=== PATIENT | male | born 1940 | race Caucasian/White ===

== ENCOUNTER → 2016-05-22 | Outpatient (CLI) | payer OTHER ==
[~2016-05-22] VITALS: Ht 190.5 cm; Wt 104.3 kg
[~2016-05-22] MED LIST: ASPIR 8181 M1 PO; IBUPROFEN 200200 M1 PO; LOPRESSOR50 PO; METOPROLOL SUCC50 MG PO; NORCO 10-325 T1 EACH PO; ROSUVASTATIN CA20 MG PO; ZANTAC 150MG T150 MG PO
--- NOTE | ~2016-05-22 | HPC ---
[facility] [address] [address] PAIN MANAGEMENT CONSULTATION Name: JESUSSHANIA Margarita Room #: REG JACOBOAshlyn Thorpe#: [id number] Admission: 05/22/16 Attend Phys: Shania Topete MD Discharge: Date of : 38 Report #: [id number] THIS REPORT FOR: //name// CC: Kate Topete DATE OF SERVICE: 05/22/2016 CHIEF COMPLAINT: Low back pain with spinal stenosis. I am seeing the patient today as a self-referral for low back pain. He has had ongoing back pain for some time, but in the last year, it has gotten much worse. He describes it as mostly back pain but with a sciatic component that radiates into the right leg. He has some left leg, but this is minimal. It follows an S1 distribution. It is worsened by standing and walking, improved with rest. He describes it as continuous, ache and his pain scores vary between 5 and 6 on a given day on average and his worst pain has been a 9-10. Pain drawing shows an X located across the lumbosacral spine without radiating drawings. MEDICATIONS: Aspirin, Toprol, Crestor, ibuprofen, hydrocodone, and Zantac. ALLERGIES: None. PAST MEDICAL HISTORY: He had a hip replacement bilaterally 15 years ago. He has had a right herniorrhaphy 14 years ago, tonsillectomy and adenoidectomy 70 years ago. 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 He denies use of tobacco. Drinks alcohol in the social setting 3-4 times a day the week. Pain impact scores are highest for walking ability 7/10, normal work 7/10 and enjoyment of life 6/10. REVIEW OF SYSTEMS: Positive for nocturia, change of force with urination, but he denies cardiovascular, respiratory, gastrointestinal or musculoskeletal problems. He denies any psychiatric issues, no problems with sleep. PHYSICAL EXAMINATION: Pleasant physician, blood pressure 194/117, pulse is 77, respirations 20, BMI is 28.7. He is able to move from sitting to standing position, walks with marked antalgic features. Range of motion of the lumbar spine is limited in all planes, particularly in extension which reproduces back pain. Straight leg raising is positive for radiculopathy on the right. Sensation is intact. There is no focal weakness. Deep tendon reflexes are diminished. [facility] [address] [place] [address] PAIN MANAGEMENT CONSULTATION Name: SHANIA LEE Room #: REG CLI [facility]#: [id number] Admission: 05/22/16 Attend Phys: Shania Topete MD Discharge: Date of : 39 Report #: [id number] IMPRESSION: Low back pain with spondylosis, history of spinal stenosis and radiculopathy. RECOMMENDATION: 1. Lumbar spine series would include flexion and extension views. 2. Consider epidural steroid injections in the future. He was discharged for his x-rays and we will see him back in the clinic for possible epidural steroid injection therapy. The possibility of medial branch nerve blocks and radiofrequency was also discussed. I did provide him with medication, hydrocodone 5/325. We will establish an opioid agreement for him going forward it he wants us to provide medication for him under terms of our usual opioid agreements. CDC guidelines have been reviewed with us as well with the patient. By: [id number] Shania Topete MD /nt
[2016-05-22 12:29] VITALS: BP 200/117
[2016-05-22 12:38] VITALS: BP 194/117
== END ==
LOC: PAIN 07:00
DX: M48.07 Spinal stenosis, lumbosacral region (principal); I10 Essential (primary) hypertension; Z96.643 Presence of artificial hip joint, bilateral; Z87.891 Personal history of nicotine dependence

== ENCOUNTER → 2016-05-29 | Outpatient (CLI) | payer OTHER ==
[~2016-05-29] VITALS: Ht 190.5 cm; Wt 99.8 kg
[~2016-05-29] MED LIST changes: +HYDROCODON-ACE1 EAC5 PO
--- NOTE | ~2016-05-29 | HPC ---
[facility] [address] [place] [address] PAIN MANAGEMENT CONSULTATION Name: JESUSSHANIA Margarita Room #: REG JACOBOAshlyn Ospina.#: [id number] Admission: 05/29/16 Attend Phys: Shania Topete MD Discharge: Date of : 39 Report #: [id number] THIS REPORT FOR: //name// CC: Kate Topete DATE OF SERVICE: 05/29/2016 Followup visit for severe low back pain with spinal stenosis. The patient returns to pain clinic today for discussion regarding his x-rays. Plain film x-rays show as expected degenerative changes, but they are a bit more severe than I think either he or I expected. He has severe multilevel spondylosis with degenerative disk disease with skeletal hyperostosis. All the vertebral body heights are grossly maintained. Neural foraminal narrowing is noted throughout due to severe osteoarthritis. 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 There is no evidence of fracture or spondylolisthesis. We spent 10-15 minutes today discussing options for treatment including facet injections with radiofrequency ablation. This would be a daunting task with multiple levels required to be treated. To determine the appropriate levels, radiofrequency ablation is routinely successful and would require bilateral treatments at several levels. He does not seem much interested in that. Hydrocodone 10/325 taken along with ibuprofen conservatively has been helpful. He would like to continue to use medication to manage his chronic intractable pain. We reviewed the terms of an opioid agreement. We reviewed the CDC guidelines in some detail. I am happy to provide medications for him under our control program. He signed an opioid agreement today and he was given a prescription for hydrocodone 10/325, #100 tablets. Additional prescriptions were provided for release in 4 and 8 weeks and I will see him back in the pain clinic at that time. Possibility of urine drug analysis was discussed with him, as part of the CDC guidelines. We also reviewed the opioid risk tool and he is at low risk for addiction. By: [id number] Shania Topete MD /nt
[2016-05-29 10:24] VITALS: BP 150/88
== END | disposition home or self-care (01) ==
LOC: PAIN 07:04
DX: M48.00 Spinal stenosis, site unspecified (principal); M47.9 Spondylosis, unspecified; I10 Essential (primary) hypertension; M16.0 Bilateral primary osteoarthritis of hip

== ENCOUNTER → 2016-09-29 | Outpatient (CLI) | payer OTHER ==
--- NOTE | ~2016-09-29 | HPC ---
[facility] [address] [address] PAIN MANAGEMENT CONSULTATION Name: JESUSSHANIA Margarita Room #: REG CLOTILDE Ila#: [id number] Admission: 09/29/16 Attend Phys: Shania Topete MD Discharge: Date of : 39 Report #: [id number] THIS REPORT FOR: //name// CC: Kate Topete DATE OF SERVICE: 09/29/2016 Followup visit for severe spinal stenosis. The patient returns to pain clinic today reporting that he receives reasonable pain relief with the hydrocodone that we initiated. He has been taking no more than 3-4 tablets per day, averaging 100 tablets per month. He has had no significant side effects. He safeguards his medication. He is receiving opioids only from our clinic and no other physicians. 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 We talked about safeguarding medications in some detail today. PHYSICAL EXAMINATION: He is in a wheelchair. He is morbidly obese. BMI is over 35. Blood pressure is 167/97, heart rate 75. He has pain across his low back and tenderness. He has weakness noted bilaterally in lower extremities with sensation of numbness. Straight leg raising is positive. IMPRESSION: 1. Chronic low back pain with spinal stenosis. 2. Management of high risk medication. PLAN: I renewed his medications under terms of our written opioid agreement. We will see him back in the pain clinic in roughly 3 months. Prescriptions were provided for him under terms of the agreement with release of prescription in 4 weeks. By: [id number] Shania Topete MD /nt
[2016-09-29 10:03] VITALS: BP 167/97
== END | disposition home or self-care (01) ==
LOC: PAIN 07:11
DX: Z76.0 Encounter for issue of repeat prescription (principal); G89.29 Other chronic pain; M48.06 Spinal stenosis, lumbar region; M54.5 Low back pain; Z79.891 Long term (current) use of opiate analgesic; Z79.82 Long term (current) use of aspirin; Z79.899 Other long term (current) drug therapy

== ENCOUNTER → 2017-01-27 | Outpatient (CLI) | payer OTHER ==
[~2017-01-27] VITALS: Ht 190.5 cm; Wt 104.3 kg
--- NOTE | ~2017-01-27 | HPC ---
[facility] [place] [address] PAIN MANAGEMENT CONSULTATION Name: SHANIA LEE Room #: REG CLOTILDE Thorpe#: [id number] Admission: 01/27/17 Attend Phys: William Fraser DO Discharge: Date of : 39 Report #: [id number] THIS REPORT FOR: //name// CC: Kate Fraser DATE OF SERVICE: 01/27/2017 CHIEF COMPLAINT: Low back pain, bilateral lower extremity pain and paresthesias. HISTORY OF PRESENT ILLNESS: As you know, the patient is a 76-year-old male, followed by Dr. Shania Topete for medication management secondary to severe spinal stenosis and its subsequent lumbar radicular symptoms. He returns today in followup visit for medication management. Due to scheduling conflicts, the patient was placed on my schedule today to provide medications for continued analgesia. The patient indicates he takes hydrocodone 10/325, approximately 3-4 a day. He receives 100 tablets every month and 2-month increments. He returns to receive these refills as his typical pain physician, Dr. Shania Topete, is unavailable. The patient indicates today pain is a level 4/10. States aching, throbbing, radiating weakness and numbness. He indicates pain is exacerbated with walking, standing; improves with relaxation and medication. ALLERGIES: No known drug allergies. CURRENT MEDICATIONS: Hydrocodone 10/325 one tab every 8 hours p.r.n. for pain, aspirin 81 mg per day, ibuprofen 200 mg 4 times a day, ranitidine 150 mg per day, metoprolol 50 mg per day, lovastatin 20 mg per day. SOCIAL HISTORY: Unchanged. IMAGING: No imaging available. PHYSICAL EXAMINATION: VITAL SIGNS: Blood pressure 146/87, pulse is 72, respiratory rate 20 and unlabored. The patient is 97% on room air, height 6 feet 3 inches tall, weight 230 pounds, BMI calculated 28.7. GENERAL: Well-developed, well-nourished, well-hydrated, 76-year-old male. He appears stated age, placing pain score today 4/10. HEENT: Normocephalic, atraumatic. Pupils equal, round, reactive to light. EXTREMITIES: Showed no clubbing, no cyanosis. MUSCULOSKELETAL: There is weakness noted in bilateral lower extremities. Seated straight leg raising positive. IMPRESSION: 1. Chronic lumbar radiculopathy. [address] [address] PAIN MANAGEMENT CONSULTATION Name: JESUSSHANIA Margarita Room #: REG CLOTILDE Thorpe#: [id number] Admission: 01/27/17 Attend Phys: William Fraser DO Discharge: Date of : 39 Report #: [id number] 2. Severe spinal stenosis of lumbar spine. 3. Displacement of lumbar intervertebral disk with radiculopathy. 4. Lumbosacral spondylosis with radiculopathy. 5. Management of high risk medications. 6. Chronic intractable pain. PLAN: 1. The patient returns today in followup visit, requesting refill on medications. He typically receives hydrocodone 10/, 100 per month from his current pain physician, Dr. Shania Topete. He has requested refills of medication to be provided today due to scheduling conflicts. The patient was placed on my schedule for continuation of this medication. At this time, the patient indicates he is utilizing the medication appropriately. He is not calling for early refills and he has no concerning entries in the [employer] system. He has requested the refill to be provided today. 2. The patient was provided prescription of hydrocodone 10/325, one tab every 5 hours p.r.n. for pain., #100, releases of today, 4 weeks from today, 2 months' worth of medication. 3. The patient returns to see Dr. Shania Topete in 2 months for medication management. By: [id number] William Fraser DO /nt
[2017-01-27 10:53] VITALS: BP 146/87
== END ==
LOC: PAIN 01-23 07:28
DX: M47.27 Other spondylosis with radiculopathy, lumbosacral region (principal); M51.16 Intervertebral disc disorders with radiculopathy, lumbar region; M48.061 Spinal stenosis, lumbar region without neurogenic claudication; G89.4 Chronic pain syndrome; M79.605 Pain in left leg; M79.604 Pain in right leg; Z79.899 Other long term (current) drug therapy

== ENCOUNTER → 2017-08-06 | Outpatient (CLI) | payer OTHER ==
[~2017-08-06] VITALS: Ht 190.5 cm; Wt 102.1 kg
--- NOTE | ~2017-08-06 | HPC ---
[facility] [place] [address] PAIN MANAGEMENT CONSULTATION Name: JESUSSHANIA Margarita Room #: REG JACOBOAshlyn Ospina.#: [id number] Admission: 08/06/17 Attend Phys: Shania Topete MD Discharge: Date of : 39 Report #: [id number] THIS REPORT FOR: //name// CC: Kate Topete DATE OF SERVICE: 08/06/2017 Followup visit for severe low back pain with radiculopathy. The patient presents back to the pain clinic today for renewal of his pain medication. He is on modest doses of hydrocodone, which provide relief. I provide him with 100 tablets of hydrocodone 10/325 twice over roughly a 6-month period. This correlates to about 1-2 tablets or about 10 MME per day. He is grateful for the relief, does not complain of side effects, safeguards all his medication. Today, his PQRS shows that he has severe osteoarthritis of the spine and of the hips. Also, he has a history of rheumatoid arthritis. His BMI is 28.1. He is confined to a wheelchair and is a fall risk. He has weakness bilaterally in lower extremities. His blood pressure 147/78, heart rate 67. He has pain across the lumbosacral segment. Deep tendon reflexes are absent bilaterally in lower extremities. IMPRESSION: Chronic intractable back pain with radiculopathy. PLAN: New imaging is planned. This was ordered by his primary care physician. For pain, I have renewed his hydrocodone 10/325 mg at 100 tablets to be taken 3-4 times daily p.r.n. for severe pain. He was given a second prescription for release in 4 weeks. I plan to see him back in the pain clinic on an as needed basis. By: [id number] Shania Topete MD /nt
[2017-08-06 10:05] VITALS: BP 147/78
== END ==
LOC: PAIN 06:56
DX: M54.16 Radiculopathy, lumbar region (principal)

== ENCOUNTER → 2017-12-21 | Outpatient (CLI) | payer OTHER ==
[~2017-12-21] VITALS: Ht 190.5 cm; Wt 122.8 kg
[~2017-12-21] MED LIST changes: +IBUPROFEN 800800 M1 PO; +LISINOPRIL10 MG PO; +LOPRESSOR100 M1 PO
--- NOTE | ~2017-12-21 | HPC ---
[facility] [place] [address] PAIN MANAGEMENT CONSULTATION Name: SHANIA LEE Room #: REG CLOTILDE Thorpe#: [id number] Admission: 12/21/17 Attend Phys: Angelic Aguillon Discharge: Date of : 39 Report #: [id number] THIS REPORT FOR: //name// CC: Angelic Robison DATE OF SERVICE: 12/21/2017 CHIEF COMPLAINT: The patient seen today for his chronic low back pain with radiculopathy. HISTORY OF PRESENT ILLNESS: The patient returns to the pain clinic today for renewal of his pain medications. He tells me that he did have surgery on 11/10/2017, laminectomy from Dr. Campos. States that he is doing much better since then. He said he had pain initially right after the surgery that was pretty intense, but has decreased significantly. He is doing physical therapy 2 times a week for at least 6 weeks and doing his exercises at home. He is using a walker. Today, he tells me his greatest concern is that he has weakness. He was surprised at how much strength he has lost, but he is slowly gaining it back. Pain score is 3/10, worse with walking, better with his medication and lying down. He tells me he takes ibuprofen 800 mg 3 times a day and hydrocodone 2 a day. He is trying to decrease his hydrocodone and wean himself off because he complains of significant constipation. He has been using MiraLax and Colace on a daily basis that seems to keep his constipation under control, but he tells me his plan is to decrease his hydrocodone to 1 a day and then off. ALLERGIES: He has no known drug allergies. LIST OF MEDICATIONS: Ibuprofen 800 mg 3 times a day, lisinopril 10 mg daily, Lopressor 100 mg twice a day, Emily 10/325 two a day, aspirin 81 mg daily, Zantac 150 at bedtime and Crestor 20 mg daily. PQRS: 1. He has history of osteoarthritis in his spine and his hips. He denies rheumatoid arthritis. 2. Height is 6 feet 3 inches. His weight is 270 with a BMI of 33.8. 3. Vital signs: Blood pressure 158/86, pulse is 80, respirations 20, oxygen sat is 97%. Pain score is 3/10 today. 4. Fall risk: He denies dizziness. Does not need help walking or standing and has not fallen in the last 3 months. 5. The patient is not on a blood thinner. 6. He has a history of hypertension. 7. Opioid therapy is greater than 6 weeks, he has opioid signed contract on the chart. 8. Risk assessment is low. 9. Functional assessment is 60/70. [address] [address] PAIN MANAGEMENT CONSULTATION Name: SHANIA LEE Room #: REG CLAshlyn Thorpe#: [id number] Admission: 12/21/17 Attend Phys: Angelic Aguillon Discharge: Date of : 39 Report #: [id number] 10. Denies recreational drug use. Does not smoke and occasionally uses some alcohol. We checked the [facility] drug monitoring system and patient has filled one hydrocodone from Dr. Edy Fonseca, otherwise, they have been from Dr. Shania Topete. The patient is hopeful to decrease his medicines and wean off of them. The patient does keep his medicines safeguarded. PHYSICAL EXAMINATION: GENERAL: This is a well-developed, well-nourished, well-hydrated 77-year-old male who appears his stated age. HEENT: Normocephalic, atraumatic. Pupils equal, round and reactive to light. EXTREMITIES: No clubbing, no cyanosis. MUSCULOSKELETAL: There is weakness noted in his bilateral extremities, positive straight raising. The patient tells me he is gaining strength in his legs, though they are still diminished in strength. IMPRESSION: 1. Chronic intractable back pain with radiculopathy. 2. Post-laminectomy. 3. Severe spinal stenosis of his lumbar spine. 4. Lumbosacral spondylosis with radiculopathy. 5. Management of high risk medication. 6. Chronic intractable pain. We reviewed the fact that opiate medications are being used to provide analgesia adequate to support activities of daily living, not attempting to achieve a specific pain score on the 0-10 Visual Analog Scale. The current opiate medications are providing sufficient analgesia to allow the patient to participate in activities of daily living. The patient is not exhibiting any aberrant behavior suggestive of drug diversion. The patient is not having any adverse reactions to medications. The patient is not suffering from daytime somnolence or mental acuity changes. The patient is managing opiate-induced constipation with appropriate [id number] agents and dietary considerations. The patient was counseled on concern for caution with operating a motor vehicle while using opiate medications. A physical exam was performed and the patient's functional status was evaluated. All patients with back pain were advised against the bed rest greater than 4 days and were advised to return to normal activities. Pain score assessment was noted and the treatment plan was reviewed with the patient. All current medications, both prescribed and OTC were reviewed and reconciled on the electronic medical record. Tobacco screening was accomplished and smoking cessation was advised when indicated. BMI was noted and diet/exercise modification was recommended for all patients following outside normal parameters. [address] [place] [address] PAIN MANAGEMENT CONSULTATION Name: SHANIA LEE Room #: REG [facility].#: [id number] Admission: 12/21/17 Attend Phys: Angelic Aguillon Discharge: Date of : 39 Report #: [id number] I reviewed with the patient today their responsibilities to safeguard prescription medications, reviewed their responsibility to utilize medications only as prescribed by the physician. They are to seek and receive pain medications only from 1 physician group ( [facility]). They are to use 1 pharmacy and keep the clinic informed if they change pharmacies. Their responsibilities include making followup visits in a timely fashion and to avoid abrupt discontinuation of medication usage. Their responsibilities further include bringing their medications (bottles from the pharmacy with residual pills) to the visit for possible confirmation of pill counts and the patient understands it is their responsibility to submit to random drug screens to ensure both that the medications prescribed are present, and that no other controlled substances are present. All prescriptions provided today were generated electronically. PLAN: 1. The patient returns to the pain clinic today for refill of his medication. He specifically would like an ibuprofen script 800 mg tablets, he tells me he takes them 3 times a day. He also would like hydrocodone 10/325, he is slowly weaning off these since his surgery. 2. The patient was given script for ibuprofen 800, #90 with 2 additional refills. Script also for hydrocodone 10/325 one p.o. q. 6 hours, #120, no additional refills. 3. The patient will continue his physical therapy for his laminectomy surgery and continue to gain strength. 4. The patient will see in followup if needed. If the patient does wean off his hydrocodone, there is no need to follow up in the pain clinic, he can get his ibuprofen from his primary care doctor. The patient is seen in collaboration today with Dr. Shania Topete. <ELECTRONICALLY SIGNED> By: Angelic Aguillon 12/22/17 0715 [id number] Angelic Aguillon /nt
[2017-12-21 14:43] VITALS: BP 151/86
== END ==
LOC: PAIN 11-25 07:49
DX: M47.27 Other spondylosis with radiculopathy, lumbosacral region (principal); M96.1 Postlaminectomy syndrome, not elsewhere classified; G89.4 Chronic pain syndrome; M48.061 Spinal stenosis, lumbar region without neurogenic claudication; Z79.899 Other long term (current) drug therapy

== ENCOUNTER → 2018-03-04 | Outpatient (CLI) | payer OTHER ==
[~2018-03-04] VITALS: Ht 190.5 cm; Wt 123.3 kg
[2018-03-04 10:55] VITALS: BP 153/84
--- NOTE | 2018-03-04 11:06 | NUR ---
Pain Clinic Assessment: 1. History of Osteoarthritis: SPINE HIPS History of Rheumatoid Arthritis: 2. Height: 6 ft. 3 in. 190.5 cm. Weight: 271.8 lb. oz. 123.288 kg. Patient's BMI: 34.0 3. Vital Signs: BP: 153/84 Pulse: 74 Resp: 22 Temp: 02 Sat: 98 ECG Mon: 4. Pain Intensity: 4 5. Fall Risk: Dizziness: N Needs help standing or walking: Y Fallen in the last 3 months: N Fall risk comments: 6. Patient on Blood Thinner: None 7. History of Hypertension: Y 8. Opioid Therapy greater than 6 weeks: Y Opiate Contract Signed: 05/29/16 9. Risk Assessment Tool Provided: *LOW RISK-3 10. Functional Assessment Tool: 11. Recreational Drug Use: Never Drug Type: Tobacco Use: Never Smoker Tobacco Type: Amount or Packs/day: How Many Years: Alcohol Use: Yes Frequency: Quant:
--- NOTE | 2018-03-04 16:07 | HPC ---
[facility] [address] [place] [address] PAIN MANAGEMENT CONSULTATION Name: JESUSSHANIA Avila Room #: REG CLOTILDE Thorpe#: [id number] Admission: 03/04/18 Attend Phys: Angelic Aguillon Discharge: Date of : 38 Report #: [id number] THIS REPORT FOR: //name// CC: Angelic Robison DATE OF SERVICE: 03/04/2018 CHIEF COMPLAINT: Chronic low back pain with radiculopathy, status post laminectomy. HISTORY OF PRESENT ILLNESS: The patient returns to the pain clinic today for renewal of his pain medications. He tells me that he has been continuing going to therapy several times a week for his stability since he has had his laminectomy in October. The patient tells me that he feels like he is doing quite well except that it has taken him a long time to gain back some of his strength and endurance. He does use a walker today because he tells me he still has some balance issues, but at home, he does use a cane. The patient tells me that he takes an average of two of his hydrocodone a day and this is a decrease in his previous amount. He does complain of some constipation and has started MiraLax daily. He would like a refill of his hydrocodone today. CURRENT LIST OF ALLERGIES: No known drug allergies. CURRENT LIST OF MEDICATIONS: Hydrocodone 10/325 every 6 hours as needed, ibuprofen 800 mg every 8 hours as needed, Zestril 10 mg daily, Lopressor 100 mg twice a day, aspirin 81 mg daily, Zantac 150 mg at bedtime and Crestor 20 mg daily. PQRS: 1. 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 Denies rheumatoid arthritis. 2. Height is 6 feet 3 inches, weight is 271. BMI is 34. 3. Vital Signs: BP 153/84, pulse is 74, respirations 22, oxygen sat is 98. 4. Pain score is 4/10. 5. Fall risk. He denies dizziness, does not need help walking or standing. Has not fallen in the last 3 months. 6. The patient is not on any blood thinners. 7. Has history of hypertension. 8. Opioid therapy is greater than 6 weeks; therefore, an opioid signed contract is on the chart. 9. His risk assessment tool is low and his functional assessment of 16/70. 10. Recreational drug use: The patient denies. He is not a smoker and occasionally drinks alcohol. We did check the prescription monitoring system. The patient is filling appropriately from Dr. Shania Topete for his medications. His last fill was in December, which he tells me he has been [address] [place] [address] PAIN MANAGEMENT CONSULTATION Name: SHANIA LEE Room #: REG CLOTILDE Thorpe#: [id number] Admission: 03/04/18 Attend Phys: Angelic Aguillon Discharge: Date of : 39 Report #: [id number] taking about 2 a day that averages out for this appointment today. The patient tells me he does safeguard his medications. PHYSICAL EXAMINATION: GENERAL: This is a well-developed, well-nourished, well-hydrated 77-year-old gentleman who appears his stated age. He is alert and orientated. His affect is appropriate. HEENT: Normocephalic, atraumatic. Pupils round, reactive to light. Slight difficulty with hearing. EXTREMITIES: No clubbing, no cyanosis. MUSCULOSKELETAL: Weakness noted in bilateral extremities. Muscle strength is judged to be 4/5 in all major muscle groups in his lower extremities. The patient uses a walker. He says he is having difficulty with his balance. He walks with an antalgic gait. ASSESSMENT: 1. Chronic intractable pain with radiculopathy. 2. Post-laminectomy. 3. Severe spinal stenosis of his lumbar spine. 4. Lumbosacral spondylosis with radiculopathy. 5. Management of high risk medication. 6. Chronic intractable pain. We reviewed the fact that opiate medications are being used to provide analgesia adequate to support activities of daily living, not attempting to achieve a specific pain score on the 0-10 Visual Analog Scale. The current opiate medications are providing sufficient analgesia to allow the patient to participate in activities of daily living. The patient is not exhibiting any aberrant behavior suggestive of drug diversion. The patient is not having any adverse reactions to medications. The patient is not suffering from daytime somnolence or mental acuity changes. The patient is managing opiate-induced constipation with appropriate pajj-jwj-cyhznlk agents and dietary considerations. The patient was counseled on concern for caution with operating a motor vehicle while using opiate medications. A physical exam was performed and the patient's functional status was evaluated. All patients with back pain were advised against the bed rest greater than 4 days and were advised to return to normal activities. Pain score assessment was noted and the treatment plan was reviewed with the patient. All current medications, both prescribed and OTC were reviewed and reconciled on the electronic medical record. Tobacco screening was accomplished and smoking cessation was advised when indicated. BMI was noted and diet/exercise modification was recommended for all patients following outside normal parameters. I reviewed with the patient today their [facility] [address] [address] PAIN MANAGEMENT CONSULTATION Name: SHANIA LEE Room #: REG CLOTILDE Thorpe#: [id number] Admission: 03/04/18 Attend Phys: Angelic Aguillon Discharge: Date of : 39 Report #: [id number] prescription medications, reviewed their responsibility to utilize medications only as prescribed by the physician. They are to seek and receive pain medications only from 1 physician group ( [facility]). They are to use 1 pharmacy and keep the clinic informed if they change pharmacies. Their responsibilities include making followup visits in a timely fashion and to avoid abrupt discontinuation of medication usage. Their responsibilities further include bringing their medications (bottles from the pharmacy with residual pills) to the visit for possible confirmation of pill counts and the patient understands it is their responsibility to submit to random drug screens to ensure both that the medications prescribed are present, and that no other controlled substances are present. All prescriptions provided today were generated electronically. PLAN: 1. We discussed treatment options with the patient today. He tells me he takes an average of about 2-3 of his hydrocodone 10/325 on a daily basis. Scripts given today for [place] 10/325 q.6 hours, #120 for today and 4-week. This may last the patient possibly even up to 4 months depending on his usage. 2. Dr. Topete to come in and see the patient. He did briefly talk about testosterone levels and as men age, our testosterone levels decrease and as also taking opioids, testosterone levels decrease, this can make a patient feel tired. The patient was instructed to talk to Dr. Robison about checking his testosterone level and may be supplementing them. The patient was encouraged by this, stating that he does feel quite tired all the time. 3. The patient tells me he does not need any ibuprofen refilled today. He has plenty of that at home because he uses it sparingly. 4. The patient will be seen when he is running low on his medication. Verbalizes understanding to call in a timely fashion for his appointment. 5. The patient is seen in collaboration today with Dr. Shania Topete. <ELECTRONICALLY SIGNED> By: Angelic Aguillon 03/04/18 1607 [id number] Angelic Aguillon /nt
== END ==
LOC: PAIN 06:57
DX: M47.27 Other spondylosis with radiculopathy, lumbosacral region (principal); M48.061 Spinal stenosis, lumbar region without neurogenic claudication; G89.4 Chronic pain syndrome; M96.1 Postlaminectomy syndrome, not elsewhere classified; Z79.899 Other long term (current) drug therapy

== ENCOUNTER → 2018-07-08 | Outpatient (CLI) | payer OTHER ==
[~2018-07-08] VITALS: Ht 190.5 cm; Wt 122.9 kg
[2018-07-08 10:57] VITALS: BP 142/79
--- NOTE | 2018-07-08 11:06 | NUR ---
Pain Clinic Assessment: 1. History of Osteoarthritis: SPINE HIPS History of Rheumatoid Arthritis: 2. Height: 6 ft. 3 in. 190.5 cm. Weight: 271.0 lb. oz. 122.925 kg. Patient's BMI: 33.9 3. Vital Signs: BP: 142/79 Pulse: 67 Resp: 20 Temp: 02 Sat: 98 ECG Mon: 4. Pain Intensity: 4 5. Fall Risk: Dizziness: N Needs help standing or walking: Y Fallen in the last 3 months: Y Fall risk comments: 6. Patient on Blood Thinner: None 7. History of Hypertension: Y 8. Opioid Therapy greater than 6 weeks: Y Opiate Contract Signed: 05/29/16 9. Risk Assessment Tool Provided: *LOW RISK-3 10. Functional Assessment Tool: 11. Recreational Drug Use: Never Drug Type: Tobacco Use: Never Smoker Tobacco Type: Amount or Packs/day: How Many Years: Alcohol Use: Yes Frequency: Daily Quant: WHISKEY 2 A DAY
--- NOTE | 2018-07-13 07:43 | HPC ---
[facility] [address] [place] [address] PAIN MANAGEMENT CONSULTATION Name: JESUSSHANIA Margarita Room #: REG Ashlyn Thorpe#: [id number] Admission: 07/08/18 ������������������ Attend Phys: Angelic Aguillon Discharge: ������������������ Date of : 39 Report #: [id number] THIS REPORT FOR: //name// CC: Angelic Robison DATE OF SERVICE: 07/08/2018 CHIEF COMPLAINT: Chronic low back pain with radiculopathy, status post laminectomy and neuropathy. 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 He had had a laminectomy last October. He is still slightly recovering from that. He is using a walker today. He feels that he has some weakness in his lower extremities and having some issues with his balance. He tells me that he recently saw a mica plate layer hand and he did not feel anything they were working on when they were dealing with his feet. He had not realized his neuropathy was that bad. He does not take any current medicines for this and does not wish to. He feels that may be aiding and why some of his balance is off. He tells me he does try to do some exercises at home and does use a walker at all times. The patient tells me that he recently lost his brother and is depressed today. He said it is really hard to see brother pass away. He said plus the weather has been affecting him. He is not able to get out as much and has been telling me that he is feeling depressed these last few months. He does not want to take any medications. He feels that he will slowly get past this and accepting that his brother is gone and hopefully the weather will improve and he will be able to be more active and get outside. ALLERGIES: No known drug allergies. CURRENT LIST OF MEDICATIONS: Hydrocodone 10/325 mg 1-2 tablets a day, ibuprofen 800 mg 2-3 times a day, lisinopril 10 mg daily, Lopressor 100 mg b.i.d. and Zantac p.r.n. PQRS: 1. He has a history of osteoarthritis in his spine and his bilateral hips. He denies any rheumatoid arthritis. 2. Height is 6 feet 3 inches, weight is 271, BMI is 33. 3. Vital signs: 142/79, pulse is 67, respirations 20, oxygen sat is 98. 4. Pain score is 4/10. 5. The patient denies any dizziness. He does need help walking. He uses a walker and he has fallen one time last week with no injury to himself. 6. The patient is not on any blood thinners. He does take medicine for hypertension. 7. Opioid therapy is greater than 6 weeks; therefore, [place] [address] PAIN MANAGEMENT CONSULTATION Name: JESUSSHANIA Margarita Room #: REG [facility] Ila#: [id number] Admission: 07/08/18 ������������������ Attend Phys: Angelic Aguillon Discharge: ������������������ Date of : 39 Report #: [id number] is on the chart. His risk assessment tool is low. His functional assessment is 16. 8. Recreational drug use, he denies. He is not a smoker and does drink two glasses of whiskey a day. We did check the prescription monitoring system. The patient is filling appropriately from Dr. Shania Topete for his narcotics. His last fill was April, which is appropriate. He tells me he does safeguard his medications. PHYSICAL EXAMINATION: GENERAL: This is a well-developed, well-nourished, well-hydrated 78-year-old gentleman who appears his stated age, slightly depressed today. He is alert and orientated, placing his pain score 4/10. HEENT: Normocephalic, atraumatic. Pupils round and reactive to light. Mucous membranes are moist. Hearing is slightly diminished. EXTREMITIES: No clubbing, no cyanosis. MUSCULOSKELETAL: Weakness noted in bilateral lower extremities, 4/5 in all major muscle groups in his lower extremities. The patient does use a walker at all times, telling me he feels like his balance is off. He does walk with a slightly antalgic gait, complains of numbness in his bilateral feet. IMPRESSION: 1. Chronic intractable pain with radiculopathy. 2. Post-laminectomy syndrome. 3. Severe spinal stenosis of his lumbar spine. 4. Lumbosacral spondylosis with radiculopathy. 5. Management of high risk medications. 6. Chronic intractable pain. 7. Depression. We reviewed the fact that opiate medications are being used to provide analgesia adequate to support activities of daily living, not attempting to achieve a specific pain score on the 0-10 Visual Analog Scale. The current opiate medications are providing sufficient analgesia to allow the patient to participate in activities of daily living. The patient is not exhibiting any aberrant behavior suggestive of drug diversion. The patient is not having any adverse reactions to medications. The patient is not suffering from daytime somnolence or mental acuity changes. The patient is managing opiate-induced constipation with appropriate swfb-noo-urngklj agents and dietary considerations. The patient was counseled on concern for caution with operating a motor vehicle while using opiate medications. A physical exam was performed and the patient's functional status was evaluated. All patients with back pain were advised against the bed rest greater than 4 days and were advised to return to normal activities. Pain score assessment was noted and the treatment plan was reviewed with the patient. All current [facility] [address] [place] [place] [address] PAIN MANAGEMENT CONSULTATION Name: SHANIA LEE Room #: REG [facility].R.#: [id number] Admission: 07/08/18 ������������������ Attend Phys: Angelic Aguillon Discharge: ������������������ Date of : 39 Report #: [id number] medications, both prescribed and OTC were reviewed and reconciled on the electronic medical record. Tobacco screening was accomplished and smoking cessation was advised when indicated. BMI was noted and diet/exercise modification was recommended for all patients following outside normal parameters. I reviewed with the patient today their responsibilities to safeguard prescription medications, reviewed their responsibility to utilize medications only as prescribed by the physician. They are to seek and receive pain medications only from 1 physician group ( [facility]). They are to use 1 pharmacy and keep the clinic informed if they change pharmacies. Their responsibilities include making followup visits in a timely fashion and to avoid abrupt discontinuation of medication usage. Their responsibilities further include bringing their medications (bottles from the pharmacy with residual pills) to the visit for possible confirmation of pill counts and the patient understands it is their responsibility to submit to random drug screens to ensure both that the medications prescribed are present, and that no other controlled substances are present. All prescriptions provided today were generated electronically. PLAN: 1. We discussed treatment options with the patient today. The patient tells me he has noticed that he is having more neuropathy in his feet. He recently went to mica plate layer hand and I did not feel them working on his feet at all. They are " feeling." We discussed treatment options as prescribing gabapentin that the patient is having some balance issues, patient is not wanting to start a medication at this time. He tells me that they do not really bother him with the neuropathy. 2. We also discussed his weakness in his legs and his balance issues. The patient tells me he is going to follow up with his neurologist, Dr. Medhat Pace soon and discuss this. He understands that it could take a year for things to get better after his surgery and he will continue to work on his exercises at home and follow up with his physician. 3. We discussed his depression. He tells me it has been a long winter and then now with all the rain, he is not getting out very much. This has caused him to be depressed as well as his brother recently about 2 months ago. He is finding this harder to deal with than he thought. He is not taking any antidepressants and does not want to at this time. 4. The patient takes hydrocodone 2-3 tablets a day. He tells me he has no daytime sleepiness or any constipation issues and would like those refilled. Scripts given today for hydrocodone 10/325, #100 for release today and 4 weeks as well as ibuprofen 800 mg, #270 with one refill. This is a 3-month supply. [address] [address] PAIN MANAGEMENT CONSULTATION Name: SHANIA LEE Room #: REG CLOTILDE Thorpe#: [id number] Admission: 07/08/18 ������������������ Attend Phys: Angelic Aguillon Discharge: ������������������ Date of : 39 Report #: [id number] Shania Topete did come and see the patient as well today and collaborated care. The patient will return as followup as needed. ��������������������������������������������� <ELECTRONICALLY SIGNED> ���������������������������������������� By: Angelic Aguillon ��������������������������������������������� 07/13/18 0743 [id number] 0119 Angelic Aguillon /trish
== END ==
LOC: PAIN 06:57
DX: M96.1 Postlaminectomy syndrome, not elsewhere classified (principal); M47.26 Other spondylosis with radiculopathy, lumbar region; M48.061 Spinal stenosis, lumbar region without neurogenic claudication; F32.9 Major depressive disorder, single episode, unspecified; Z79.899 Other long term (current) drug therapy; Z79.891 Long term (current) use of opiate analgesic

== ENCOUNTER → 2018-09-27 | Outpatient (CLI) | payer OTHER ==
[~2018-09-27] VITALS: Ht 190.5 cm; Wt 118.8 kg
[2018-09-27 10:22] VITALS: BP 144/78
--- NOTE | 2018-09-27 10:23 | NUR ---
Pain Clinic Assessment: 1. History of Osteoarthritis: SPINE HIPS History of Rheumatoid Arthritis: Not Applicable 2. Height: 6 ft. 3 in. 190.5 cm. Weight: 262.0 lb. oz. 118.843 kg. Patient's BMI: 32.7 3. Vital Signs: BP: 144/78 Pulse: 90 Resp: 18 Temp: 02 Sat: 97 ECG Mon: 4. Pain Intensity: 4 5. Fall Risk: Dizziness: N Needs help standing or walking: N Fallen in the last 3 months: Y Fall risk comments: 6. Patient on Blood Thinner: None 7. History of Hypertension: Y 8. Opioid Therapy greater than 6 weeks: Y Opiate Contract Signed: 05/29/16 9. Risk Assessment Tool Provided: *LOW RISK-3 10. Functional Assessment Tool: 11. Recreational Drug Use: Never Drug Type: Tobacco Use: Never Smoker Tobacco Type: Amount or Packs/day: How Many Years: Alcohol Use: Yes Frequency: Quant:
--- NOTE | 2018-09-28 10:15 | HPC ---
[facility] [address] [place] [address] PAIN MANAGEMENT CONSULTATION Name: JESUSSHANIA Avila Room #: REG CLOTILDE Thorpe#: [id number] Admission: 09/27/18 Attend Phys: Angelic Aguillon Discharge: Date of : 39 Report #: [id number] THIS REPORT FOR: //name// CC: Angelic Robison DATE OF SERVICE: 09/27/2018 CHIEF COMPLAINT: Chronic low back pain with radiculopathy, status post laminectomy and neuropathy. 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 He tells me he feels like he is improving some since his surgery last October. He is working with a physical therapist on his balance. He did recently fall a month ago and feels that he does need to improve his balance. His pain has been slowly decreasing. It had been at least 4 months since he has been here last. He has been able to decrease his pain pills over this time. The patient tells me that he does use a cane occasionally at home, but today is using a walker and was able to ambulate to the clinic from his car with minimal increase in pain. He tells me that movement does increase his pain and sitting relieves his pain completely. His pain score today is 4/10 across his lower back, occasionally radiate into his bilateral legs. The patient denies any problems with constipation as long as he uses MiraLax in his coffee daily. The patient would just like a refill of his medications today. ALLERGIES: No known drug allergies. CURRENT LIST OF MEDICATIONS: Lopressor, Motrin, hydrocodone 10/325, lisinopril, aspirin and Zantac. PQRS: 1. He has a history of osteoarthritis in his spine and bilateral hips. He denies any rheumatoid arthritis. 2. Height is 6 feet 3 inches, weight is 262, BMI is 32, which is a decrease in 9 pounds since we last saw him. 3. Vital Signs: Blood pressure 144/78, pulse is 90, respirations 18, oxygen sat is 97. 4. Pain score is 4/10. 5. Denies dizziness. Does use a walker or a cane for walking and he has fallen in the last 3 months, but is not injured. 6. The patient is not on any blood thinners. He does take medicine for hypertension. 7. Opioid therapy is greater than 6 weeks; therefore, an opioid signed contract is on the chart. 8. Risk assessment tool is low. [place] [address] PAIN MANAGEMENT CONSULTATION Name: SHANIA LEE Room #: REG Ashlyn Thorpe#: [id number] Admission: 09/27/18 Attend Phys: Angelic Aguillon Discharge: Date of : 39 Report #: [id number] 9. Recreational drug use, he denies. He is not a smoker and occasionally drinks alcohol. According to the prescription monitoring system, the patient is filling appropriately. He has not filled his last prescription in greater than one month. PHYSICAL EXAMINATION: GENERAL: This is a well-developed, well-nourished, well-hydrated 78-year-old gentleman who appears is stated age. He is alert and orientated, fairly upbeat today, placing his current pain score at 4/10 today. HEENT: Normocephalic, atraumatic. Pupils equal and reactive to light. Mucous membranes are moist. EXTREMITIES: No clubbing, no cyanosis. MUSCULOSKELETAL: The patient is using a walker. Does have weakness in his lower extremities, strength judged to be 4/5 in all major muscle groups. He walks with a slightly antalgic gait, has pain across his lumbar spine today. IMPRESSION: 1. Chronic intractable pain with radiculopathy. 2. Post-laminectomy syndrome. 3. Severe spinal stenosis of the lumbar spine. 4. Lumbosacral spondylosis with radiculopathy. 5. Management of high risk medications. 6. Depression. We reviewed the fact that opiate medications are being used to provide analgesia adequate to support activities of daily living, not attempting to achieve a specific pain score on the 0-10 Visual Analog Scale. The current opiate medications are providing sufficient analgesia to allow the patient to participate in activities of daily living. The patient is not exhibiting any aberrant behavior suggestive of drug diversion. The patient is not having any adverse reactions to medications. The patient is not suffering from daytime somnolence or mental acuity changes. The patient is managing opiate-induced constipation with appropriate vwaw-iiy-atcyscr agents and dietary considerations. The patient was counseled on concern for caution with operating a motor vehicle while using opiate medications. A physical exam was performed and the patient's functional status was evaluated. All patients with back pain were advised against the bed rest greater than 4 days and were advised to return to normal activities. Pain score assessment was noted and the treatment plan was reviewed with the patient. All current medications, both prescribed and OTC were reviewed and reconciled on the electronic medical record. Tobacco screening was accomplished and smoking cessation was advised when indicated. BMI was noted and diet/exercise modification was recommended for all patients following outside normal [facility] [address] [place] [address] PAIN MANAGEMENT CONSULTATION Name: SHANIA LEE Room #: REG CLOTILDE Thorpe#: [id number] Admission: 09/27/18 Attend Phys: Angelic Aguillon Discharge: Date of : 39 Report #: [id number] parameters. I reviewed with the patient today their responsibilities to safeguard prescription medications, reviewed their responsibility to utilize medications only as prescribed by the physician. They are to seek and receive pain medications only from 1 physician group ( [facility]). They are to use 1 pharmacy and keep the clinic informed if they change pharmacies. Their responsibilities include making followup visits in a timely fashion and to avoid abrupt discontinuation of medication usage. Their responsibilities further include bringing their medications (bottles from the pharmacy with residual pills) to the visit for possible confirmation of pill counts and the patient understands it is their responsibility to submit to random drug screens to ensure both that the medications prescribed are present, and that no other controlled substances are present. All prescriptions provided today were generated electronically. PLAN: 1. We discussed treatment options with the patient today. The patient tells me that he has been going to physical therapy at least once a week and working on his balance. I encouraged the patient to try and do his exercises at home as well. The patient does tell me he is not as good as remembering to do that on a daily basis. 2. We did talk about he does use his walker and a 4-prong cane. I did show him another cane option of the [employer] on [employer] that he is able to fold up. The patient liked the look of that and also that it had a light on it. 3. The patient has decreased his hydrocodone use, has not been here for about 4 months. 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 Scripts given today for his hydrocodone #100 for today and 4-week release. Again, this may last the patient several months if he continues to taper down as he had in the past. No scripts needed for ibuprofen today. 4. Dr. Topete did see the patient and collaborated care as well today. <ELECTRONICALLY SIGNED> By: Angelic Aguillon 09/28/18 1015 [id number] Angelic Aguillon /nt
== END ==
LOC: PAIN 06:52
DX: M47.27 Other spondylosis with radiculopathy, lumbosacral region (principal); M48.061 Spinal stenosis, lumbar region without neurogenic claudication; F32.9 Major depressive disorder, single episode, unspecified; M96.1 Postlaminectomy syndrome, not elsewhere classified; G89.4 Chronic pain syndrome; Z79.82 Long term (current) use of aspirin; Z79.899 Other long term (current) drug therapy

== ENCOUNTER → 2018-12-23 | Outpatient (CLI) | payer OTHER ==
[~2018-12-23] VITALS: Ht 190.5 cm; Wt 118.8 kg
[~2018-12-23] MED LIST changes: +MELOXICAM15 MG PO
[2018-12-23 10:31] VITALS: BP 137/73
--- NOTE | 2018-12-23 10:37 | NUR ---
Pain Clinic Assessment: 1. History of Osteoarthritis: SPINE HIPS History of Rheumatoid Arthritis: Not Applicable 2. Height: 6 ft. 3 in. 190.5 cm. Weight: 262.0 lb. oz. 118.843 kg. Patient's BMI: 32.7 3. Vital Signs: BP: 137/73 Pulse: 74 Resp: 16 Temp: 02 Sat: 96 ECG Mon: 4. Pain Intensity: 4 5. Fall Risk: Dizziness: N Needs help standing or walking: Y Fallen in the last 3 months: N Fall risk comments: 6. Patient on Blood Thinner: None 7. History of Hypertension: Y 8. Opioid Therapy greater than 6 weeks: Y Opiate Contract Signed: 05/29/16 9. Risk Assessment Tool Provided: *LOW RISK-3 10. Functional Assessment Tool: 11. Recreational Drug Use: Never Drug Type: Tobacco Use: Never Smoker Tobacco Type: Amount or Packs/day: How Many Years: Alcohol Use: Yes Frequency: Quant:
--- NOTE | 2018-12-23 15:49 | HPC ---
[facility] [address] [address] PAIN MANAGEMENT CONSULTATION Name: WIL LEE Room #: REG CLOTILDE Thorpe#: [id number] Admission: 12/23/18 Attend Phys: Angelic Aguillon Discharge: Date of : 39 Report #: [id number] THIS REPORT FOR: //name// CC: Angelic Topete MD DATE OF SERVICE: 12/23/2018 CHIEF COMPLAINT: Chronic low back pain with radiculopathy, status post laminectomy. 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 He is slightly discouraged today since he feels like he is not progressing as fast as he would like from his laminectomy which has been almost a year ago. He continues to have weakness in his lower extremities using a walker today. He rates his pain as a 4/10 today. He does tell me that he attends physical therapy sessions at [facility] physical therapy once a week that is not faithful of doing his exercises at home. He has been sitting in his chair more than he knows he should. His medications are very helpful. He does require only 1-2 tablets a day. He has been able to have his prescriptions greater than 3 months since we have seen him last. He denies any problems with overmedication or constipation from his medications. The patient is requesting meloxicam in place of ibuprofen today. He feels that it worked better. He had some samples at home. He does not have any problems with GI upset from the ibuprofen. He just felt like the meloxicam was more effective in controlling his general aches and pains. ALLERGIES: No known drug allergies. CURRENT LIST OF MEDICATIONS: Hydrocodone 10/325 p.r.n., metoprolol 100 mg daily, Zestril 10 mg daily, aspirin 81 mg daily and ibuprofen 800 mg p.r.n. PQRS: 1. He has a history of osteoarthritis in his spine and bilateral hips. Denies any rheumatoid arthritis. 2. Height is 6 feet 3 inches, weight is 262, BMI is 32. 3. Vital signs 137/73, pulse is 74, respirations 16, oxygen sat is 96. Pain score is 4/10. Denies dizziness. Does need a walker for standing, has not fallen in the last 3 months. 4. The patient is not on any blood thinners, but does take medicine for hypertension. Opioid therapy is greater than 6 weeks; therefore, an opioid signed contract is on the chart. His risk assessment tool is low. Functional [address] [address] PAIN MANAGEMENT CONSULTATION Name: WIL LEE Room #: REG CLOTILDE Thorpe#: [id number] Admission: 12/23/18 Attend Phys: Angelic Aguillon Discharge: Date of : 39 Report #: [id number] assessment is . 5. Recreational drug use, he denies. He is not a smoker and occasionally drinks alcohol. According to the prescription monitoring system, the patient is filling appropriately for his medications in a timely fashion. He is able to take less medication on some days; therefore, having his medication last longer than a month. He has no aberrant fills. He does safeguard his medications at home. PHYSICAL EXAMINATION: GENERAL: This is a well-developed, well-nourished, well-hydrated 78-year-old gentleman who appears his stated age. He is alert and orientated, placing his pain score at 4/10 today. HEENT: Normocephalic, atraumatic. Extraocular eye muscles are intact. EXTREMITIES: No clubbing, no cyanosis, no edema. MUSCULOSKELETAL: He has weakness in his lower extremities from deconditioning, strength judged to be 4/5 in all major muscle groups. He walks with a slow antalgic gait using a walker. He has pain across his lumbosacral area with pain that radiates into his bilateral legs. IMPRESSION: 1. Chronic intractable pain with radiculopathy. 2. Post-laminectomy syndrome. 3. Severe spinal stenosis of the lumbar spine. 4. Lumbosacral spondylosis with radiculopathy. 5. Management of high risk medications. 6. Depression. PLAN: 1. We discussed treatment options with the patient today. The patient is slightly down today. He explained that he is not progressing as quickly as he would like. I encouraged him to try to be more proactive in doing his exercises at home instead of just going to physical therapy once a week to continue his therapy regularly, that will aid in his recovery process. The patient does verbalize he is not good about doing them routinely. 2. The patient denies any problems with side effects or constipation from his medication. He does take them quite sparingly. Scripts given today for hydrocodone 10/325 #100 for today and 4-week release. This places him at 20 to 40 morphine mEq depending on his usage per day, well below the CDC guidelines. 3. Scripts given today for meloxicam 15 mg, #30 with 5 additional refills. This is in place of the hydrocodone. He was not experiencing any GI upset but he felt the meloxicam that he had samples of was more beneficial in controlling some of his aches and pains. 4. We did talk about his living situation, he lives at home with his and 22-year-old grandson who does not work. I asked him if he had thought about living in a long-term skilled nursing area that they have more options for [facility] [address] [address] PAIN MANAGEMENT CONSULTATION Name: WIL LEE Room #: REG CLOTILDE Thorpe#: [id number] Admission: 12/23/18 Attend Phys: Angelic Aguillon Discharge: Date of : 39 Report #: [id number] socialization there, so he would not be sitting in his chair watching TV most of the day, that would also have him exercise by walking to the dining room or walking to various areas to visit with friends. He said that he and his may need to consider that. He had thought about [facility] or possibly [facility] though not quite ready to make a change as of yet since his grandson who is not working is living with him, but maybe in the future. 5. The patient will call for an appointment when needed. The patient is seen in collaboration today with Dr. Wil Topete. <ELECTRONICALLY SIGNED> By: Angelic Aguillon 12/23/18 1549 [id number] Angelic Aguillon /nt
== END ==
LOC: PAIN 06:52
DX: M48.061 Spinal stenosis, lumbar region without neurogenic claudication (principal); G89.4 Chronic pain syndrome; M47.27 Other spondylosis with radiculopathy, lumbosacral region; M96.1 Postlaminectomy syndrome, not elsewhere classified

== ENCOUNTER → 2019-03-17 | Outpatient (CLI) | payer OTHER | LOC: HYPER 09:41 | DX: L89.893 Pressure ulcer of other site, stage 3 (principal); M20.42 Other hammer toe(s) (acquired), left foot; M20.41 Other hammer toe(s) (acquired), right foot; B35.1 Tinea unguium; M48.00 Spinal stenosis, site unspecified; G60.3 Idiopathic progressive neuropathy; I10 Essential (primary) hypertension; G64 Other disorders of peripheral nervous system; Z87.891 Personal history of nicotine dependence; Z79.82 Long term (current) use of aspirin ==

== ENCOUNTER → 2019-03-28 | Outpatient (CLI) | payer OTHER ==
[~2019-03-28] VITALS: Ht 190.5 cm; Wt 104.3 kg
[2019-03-28 12:35] VITALS: BP 142/64
--- NOTE | 2019-03-28 12:41 | NUR ---
Pain Clinic Assessment: 1. History of Osteoarthritis: SPINE HIPS History of Rheumatoid Arthritis: Not Applicable 2. Height: 6 ft. 3 in. 190.5 cm. Weight: 230.0 lb. oz. 104.328 kg. Patient's BMI: 28.7 3. Vital Signs: BP: 142/64 Pulse: 68 Resp: 20 Temp: 02 Sat: 100 ECG Mon: 4. Pain Intensity: 4 5. Fall Risk: Dizziness: N Needs help standing or walking: Y Fallen in the last 3 months: Y Fall risk comments: 6. Patient on Blood Thinner: None 7. History of Hypertension: Y 8. Opioid Therapy greater than 6 weeks: Y Opiate Contract Signed: 05/29/16 9. Risk Assessment Tool Provided: *LOW RISK-3 10. Functional Assessment Tool: 11. Recreational Drug Use: Never Drug Type: Tobacco Use: Never Smoker Tobacco Type: Amount or Packs/day: How Many Years: Alcohol Use: Yes Frequency: Quant:
--- NOTE | 2019-03-29 08:38 | HPC ---
[facility] [address] [place] [address] PAIN MANAGEMENT CONSULTATION Name: JESUSSHANIA Avila Room #: REG CLOTILDE Ospina.#: [id number] Admission: 03/28/19 Attend Phys: Angelic Aguillon Discharge: Date of : 39 Report #: [id number] THIS REPORT FOR: cc: Kaet Robison MD,Angelic Thomas MD ~ THIS REPORT FOR: //name// CC: Angelic Robison DATE OF SERVICE: 03/28/2019 CHIEF COMPLAINT: Chronic low back pain with radiculopathy, status post laminectomy. HISTORY OF PRESENT ILLNESS: This is a very pleasant 78-year-old gentleman who returns to the pain clinic today for refill of his medications. He is reporting a pain score today of 4/10, located in his lower back that does radiate into his legs. He feels that he has been having more problems with his neuropathy in his feet. He feels that this has caused him to fall one time in the last 3 months. He does not believe that it is a balance issue that causes him to fall, but it is a sensory issue. He does use a walker at all times. Today, his pain score is 4/10, worse with walking and standing. He has walked in from the car today and has done quite well, but reports that is his limit of walking per day. Feels that the medications are very beneficial, though they do cause some issues with constipation. We have discussed some lijp-tut-ykeexks remedies that he does take occasionally. He feels that meloxicam or ibuprofen are beneficial as well. ALLERGIES: No known drug allergies. CURRENT LIST OF MEDICATIONS: Meloxicam 15 mg p.r.n., hydrocodone 10/325 p.r.n., metoprolol 100 mg daily, lisinopril 10 mg daily and ibuprofen 800 mg p.r.n. PQRS: 1. He has a history of osteoarthritic changes in his lumbar spine as well as his hips. He denies any rheumatoid arthritis. 2. Height is 6 feet 3 inches, weight 230 per his report. 3. Vital signs 142/64, pulse is 68, respirations 20, oxygen sat is 100. 4. Pain score is 4/10. 5. Denies dizziness. Does need help walking, has fallen in the last 3 months. He does use a cane at all times. 6. The patient is not on any blood thinners and does take medicine for hypertension. His opioid therapy is greater than 6 weeks; therefore, an opioid signed contract is on the chart. Risk assessment tool is low. Functional [address] [address] PAIN MANAGEMENT CONSULTATION Name: JESUSSHANIA Margarita Room #: REG CLOTILDE Thorpe#: [id number] Admission: 03/28/19 Attend Phys: Angelic Aguillon Discharge: Date of : 39 Report #: [id number] assessment is . 7. Recreational drug use, he denies. He is not a smoker and occasionally drinks alcohol. According to the prescription monitoring system, the patient is filling appropriately for his medications. His last fill was in January of his medications. PHYSICAL EXAMINATION: GENERAL: This is a well-developed, well-nourished, well-hydrated 78-year-old gentleman who appears his stated age. He is alert and orientated and a good historian. His pain score is 4/10 today. HEENT: Normocephalic, atraumatic. Extraocular eye muscles are intact. Mucous membranes are moist. EXTREMITIES: No clubbing, no cyanosis, no edema. MUSCULOSKELETAL: He has weakness in his lower extremities from deconditioning. His lower extremity strength judged to be 4/5. He does use a walker at all times. He has a slow antalgic gait. His pain is in his lumbosacral region, radiates into his bilateral legs. Complains of numbness in his bilateral feet. IMPRESSION: 1. Chronic intractable pain with radiculopathy. 2. Post-laminectomy syndrome. 3. Severe spinal stenosis of the lumbar spine. 4. Lumbosacral spondylosis with radiculopathy. 5. Peripheral neuropathy. 6. Management of high risk medications. We reviewed the fact that opiate medications are being used to provide analgesia adequate to support activities of daily living, not attempting to achieve a specific pain score on the 0-10 Visual Analog Scale. The current opiate medications are providing sufficient analgesia to allow the patient to participate in activities of daily living. The patient is not exhibiting any aberrant behavior suggestive of drug diversion. The patient is not having any adverse reactions to medications. The patient is not suffering from daytime somnolence or mental acuity changes. The patient is managing opiate-induced constipation with appropriate ynlg-grf-dzmjgcc agents and dietary considerations. The patient was counseled on concern for caution with operating a motor vehicle while using opiate medications. PLAN: 1. We discussed treatment options with the patient today. The patient finds his hydrocodone very beneficial, taking these very sparingly. He does report if he takes more than 3 in a day, which he rarely does, he does have significant constipation, talked about kzgj-cpc-gjklxte laxatives which he does use if he does need more pain pills. The patient takes these usually sparingly and [address] [address] PAIN MANAGEMENT CONSULTATION Name: JESUSSHANIA Avila Room #: REG CLOTILDE Thorpe#: [id number] Admission: 03/28/19 Attend Phys: Angelic Aguillon Discharge: Date of : 39 Report #: [id number] tablets last him greater than 4 months. 2. We will refill his hydrocodone 10/325, #100 for today and 4 weeks. 3. The patient is not needing his meloxicam filled today. He takes these on an as needed basis, alternating it with ibuprofen 800 mg, he does not take these two on the same day. 4. The patient will return as needed for refills of his medication. Today, the patient was seen under the collaboration with Dr. Shania Topete who I have discussed care with. <ELECTRONICALLY SIGNED> By: Angelic Aguillon 03/29/19 0838 [id number] Angelic Aguillon /trish
== END ==
LOC: PAIN 06:45
DX: M47.26 Other spondylosis with radiculopathy, lumbar region (principal); M96.1 Postlaminectomy syndrome, not elsewhere classified; M47.818 Spondylosis without myelopathy or radiculopathy, sacral and sacrococcygeal region; G62.9 Polyneuropathy, unspecified; Z79.899 Other long term (current) drug therapy

== ENCOUNTER → 2019-03-29 | Outpatient (CLI) | payer OTHER | LOC: HYPER 09:03 | DX: L89.893 Pressure ulcer of other site, stage 3 (principal); M20.41 Other hammer toe(s) (acquired), right foot; M20.42 Other hammer toe(s) (acquired), left foot; M48.00 Spinal stenosis, site unspecified; G60.3 Idiopathic progressive neuropathy; M79.675 Pain in left toe(s); M79.674 Pain in right toe(s); G64 Other disorders of peripheral nervous system; B35.1 Tinea unguium; Z79.82 Long term (current) use of aspirin; Z87.891 Personal history of nicotine dependence ==

== ENCOUNTER → 2019-04-19 | Outpatient (CLI) | payer OTHER | LOC: HYPER 09:58 | DX: L89.893 Pressure ulcer of other site, stage 3 (principal); M48.00 Spinal stenosis, site unspecified; G60.3 Idiopathic progressive neuropathy; M20.41 Other hammer toe(s) (acquired), right foot; M20.42 Other hammer toe(s) (acquired), left foot; I10 Essential (primary) hypertension; Z87.891 Personal history of nicotine dependence ==

== ENCOUNTER → 2019-05-03 | Outpatient (CLI) | payer OTHER | LOC: HYPER 10:08 | DX: L89.893 Pressure ulcer of other site, stage 3 (principal); M20.41 Other hammer toe(s) (acquired), right foot; M20.42 Other hammer toe(s) (acquired), left foot; M48.00 Spinal stenosis, site unspecified; B35.1 Tinea unguium; G60.3 Idiopathic progressive neuropathy; M79.675 Pain in left toe(s); M79.674 Pain in right toe(s); G64 Other disorders of peripheral nervous system; I10 Essential (primary) hypertension; Z79.82 Long term (current) use of aspirin; Z87.891 Personal history of nicotine dependence ==

== ENCOUNTER → 2019-05-10 | Outpatient (CLI) | payer OTHER | LOC: HYPER 09:50 | DX: L89.893 Pressure ulcer of other site, stage 3 (principal); M20.42 Other hammer toe(s) (acquired), left foot; M20.41 Other hammer toe(s) (acquired), right foot; M48.00 Spinal stenosis, site unspecified; I10 Essential (primary) hypertension; G60.3 Idiopathic progressive neuropathy; M79.675 Pain in left toe(s); M79.674 Pain in right toe(s); G64 Other disorders of peripheral nervous system; I87.8 Other specified disorders of veins; K21.9 Gastro-esophageal reflux disease without esophagitis; H91.90 Unspecified hearing loss, unspecified ear; B35.1 Tinea unguium; Z79.82 Long term (current) use of aspirin; Z87.891 Personal history of nicotine dependence ==

== ENCOUNTER → 2019-05-24 | Outpatient (CLI) | payer OTHER | LOC: HYPER 09:54 | DX: L89.893 Pressure ulcer of other site, stage 3 (principal); L97.511 Non-pressure chronic ulcer of other part of right foot limited to breakdown of skin; L84 Corns and callosities; B35.1 Tinea unguium; G60.3 Idiopathic progressive neuropathy; G64 Other disorders of peripheral nervous system; I10 Essential (primary) hypertension; K21.9 Gastro-esophageal reflux disease without esophagitis; M20.42 Other hammer toe(s) (acquired), left foot; M20.41 Other hammer toe(s) (acquired), right foot; M48.00 Spinal stenosis, site unspecified; M79.675 Pain in left toe(s); M79.674 Pain in right toe(s); Z79.82 Long term (current) use of aspirin; Z87.891 Personal history of nicotine dependence ==

== ENCOUNTER → 2019-06-07 | Outpatient (CLI) | payer OTHER | LOC: HYPER 10:24 | DX: L89.893 Pressure ulcer of other site, stage 3 (principal); L97.512 Non-pressure chronic ulcer of other part of right foot with fat layer exposed; L97.521 Non-pressure chronic ulcer of other part of left foot limited to breakdown of skin; M48.00 Spinal stenosis, site unspecified; G60.3 Idiopathic progressive neuropathy; G64 Other disorders of peripheral nervous system; M20.42 Other hammer toe(s) (acquired), left foot; M20.41 Other hammer toe(s) (acquired), right foot; M79.675 Pain in left toe(s); M79.674 Pain in right toe(s); B35.1 Tinea unguium; I10 Essential (primary) hypertension; Z87.891 Personal history of nicotine dependence; Z79.82 Long term (current) use of aspirin ==

== ENCOUNTER → 2019-06-30 | Outpatient (CLI) | payer OTHER ==
[2019-06-30 10:01] VITALS: BP 137/83
--- NOTE | 2019-06-30 10:05 | NUR ---
Pain Clinic Assessment: 1. History of Osteoarthritis: SPINE HIPS History of Rheumatoid Arthritis: Not Applicable 2. Height: ft. in. cm. Weight: 230.0 lb. oz. 104.328 kg. Patient's BMI: 3. Vital Signs: BP: 137/83 Pulse: 66 Resp: 18 Temp: 02 Sat: 96 ECG Mon: 4. Pain Intensity: MAX OF 5; 0 AT REST 5. Fall Risk: Dizziness: N Needs help standing or walking: N Fallen in the last 3 months: N Fall risk comments: 6. Patient on Blood Thinner: None 7. History of Hypertension: Y 8. Opioid Therapy greater than 6 weeks: Y Opiate Contract Signed: 05/29/16 9. Risk Assessment Tool Provided: *LOW RISK-3 10. Functional Assessment Tool: 11. Recreational Drug Use: Never Drug Type: Tobacco Use: Never Smoker Tobacco Type: Amount or Packs/day: How Many Years: Alcohol Use: Yes Frequency: Quant:
--- NOTE | 2019-07-01 07:48 | HPC ---
[facility] [address] [place] [address] PAIN MANAGEMENT CONSULTATION Name: SHANIA LEE Room #: REG JACOBO Ial#: [id number] Admission: 06/30/19 Attend Phys: Angelic Aguillon Discharge: Date of : 38 Report #: [id number] THIS REPORT FOR: cc: Kate Robison MD, Ammar MD Hocker,Angelic CURIEL ~ CC: Shania Topete MD DATE OF SERVICE: 06/30/2019 CHIEF COMPLAINT: Chronic low back pain with radiculopathy, status post laminectomy. HISTORY OF PRESENT ILLNESS: This is a very pleasant 78-year-old gentleman who returns to the pain clinic today for a refill of his hydrocodone that he uses to help treat his ongoing low back pain and bilateral leg pain. Today, he is reporting pain at 0 when he is sitting and it does escalate up to a 5/10 when he is walking and standing for greater than 5 minutes. He does use a quad cane to help with his balance issues and feels that is beneficial. He does complain of a weakness, achy feeling in his legs and neuropathy in his feet with a numbness. He states as long as he takes his medication and relaxes he overall does quite well. He reports he takes ibuprofen on a daily basis at 400 mg or he will take 1 meloxicam, alternating these with no stomach issues per his report. Today, he would like refills of his hydrocodone only. It has been 3 months since we last saw him and we provide a 2 month prescription, so he does take these on a sparingly basis. ALLERGIES: No known drug allergies. CURRENT LIST OF MEDICATIONS: Hydrocodone 10/325 p.r.n., meloxicam p.r.n., metoprolol, lisinopril, and aspirin. PQRS: 1. He has a history of arthritic changes in his lumbar spine and hips. Denies any rheumatoid arthritis. 2. Height is 6 feet 3 inches. Weight is 230. 3. Blood pressure 137/83, pulse is 66, respirations 18, oxygen sat is 96. 4. Pain score 0-5. 5. Denies dizziness, does not need help walking or standing, has not fallen in the last 3 months. 6. The patient is not on any blood thinners, but does take medicine for hypertension. 7. Opioid therapy is greater than 6 weeks; therefore, an opioid signed contract is on the chart. Risk assessment tool is low. Functional assessment . 8. Recreational drug use, he denies. He is not a smoker [place] [address] PAIN MANAGEMENT CONSULTATION Name: SHANIA LEE Room #: REG CLOTILDE Thorpe#: [id number] Admission: 06/30/19 Attend Phys: Angelic Aguillon Discharge: Date of : 39 Report #: [id number] According to the prescription monitoring system, the patient is filling appropriately only from our provider. His morphine milliequivalent is less than 40 MME per day. PHYSICAL EXAMINATION: GENERAL: This is a well-developed, well-nourished, well-hydrated 78-year-old gentleman who appears his stated age, placing his current pain score at 0-5 today. He is a good historian. HEENT: Normocephalic, atraumatic. Extraocular eye muscles are intact. He is wearing a mask. EXTREMITIES: No clubbing, no cyanosis, no edema. MUSCULOSKELETAL: He has a quad cane walker that he uses with a slow antalgic gait, though he does use a wheelchair today. Pain is located in his lumbosacral region that radiates into his bilateral hips to his legs with numbness present in his feet bilaterally. He has generalized deconditioned in his lower extremities. His upper extremities are strength judged to be 5/5 in all major muscle groups. IMPRESSION: 1. Chronic intractable pain with radiculopathy. 2. Post-laminectomy syndrome. 3. Severe spinal stenosis of the lumbar spine. 4. Lumbosacral spondylosis with radiculopathy. 5. Peripheral neuropathy. 6. Management of high risk medications under terms of written opioid agreement. We reviewed the fact that opiate medications are being used to provide analgesia adequate to support activities of daily living, not attempting to achieve a specific pain score on the 0-10 Visual Analog Scale. The current opiate medications are providing sufficient analgesia to allow the patient to participate in activities of daily living. The patient is not exhibiting any aberrant behavior suggestive of drug diversion. The patient is not having any adverse reactions to medications. The patient is not suffering from daytime somnolence or mental acuity changes. The patient is managing opiate-induced constipation with appropriate djvc-pjg-cjsqlnk agents and dietary considerations. The patient was counseled on concern for caution with operating a motor vehicle while using opiate medications. PLAN: 1. We discussed treatment options with the patient today. The patient finds his hydrocodone very beneficial, taking it most often 1-2 tablets a day. On a very painful day, he may increase to 3 tablets. His medications typically last longer than the 2 months that we prescribed. His last visit was 3 months ago. He states that he has been doing quite well with her current regimen. Also, taking either hydrocodone or meloxicam today. We will have Dr. Shania Topete [address] [address] PAIN MANAGEMENT CONSULTATION Name: SHANIA LEE Room #: OMAR Thorpe#: [id number] Admission: 06/30/19 Attend Phys: Angelic Aguillon Discharge: Date of : 39 Report #: [id number] E-send his hydrocodone , #100 for today and 4 weeks supply. 2. The patient denies any gastric upset as a result of his ibuprofen and he does take MiraLax on a regular basis to offset some constipation from his hydrocodone. 3. The patient will return in 2-3 months as needed for his medication refills. The patient is seen in collaboration with Dr. Shania Topete. <ELECTRONICALLY SIGNED> By: Angelic Aguillon 07/01/19 0748 [id number] Angelic Aguillon /trish
== END ==
LOC: PAIN 06:55
DX: M47.27 Other spondylosis with radiculopathy, lumbosacral region (principal); M48.061 Spinal stenosis, lumbar region without neurogenic claudication; G90.09 Other idiopathic peripheral autonomic neuropathy; G89.29 Other chronic pain; M96.1 Postlaminectomy syndrome, not elsewhere classified; F11.20 Opioid dependence, uncomplicated; Z79.899 Other long term (current) drug therapy

== ENCOUNTER → 2019-07-05 | Outpatient (CLI) | payer OTHER | LOC: HYPER 09:59 | DX: L89.893 Pressure ulcer of other site, stage 3 (principal); L97.518 Non-pressure chronic ulcer of other part of right foot with other specified severity; L97.528 Non-pressure chronic ulcer of other part of left foot with other specified severity; L84 Corns and callosities; B35.1 Tinea unguium; G60.3 Idiopathic progressive neuropathy; G64 Other disorders of peripheral nervous system; I10 Essential (primary) hypertension; M48.00 Spinal stenosis, site unspecified; K21.9 Gastro-esophageal reflux disease without esophagitis; M20.42 Other hammer toe(s) (acquired), left foot; M20.41 Other hammer toe(s) (acquired), right foot; M79.675 Pain in left toe(s); M79.674 Pain in right toe(s); Z79.82 Long term (current) use of aspirin; Z87.891 Personal history of nicotine dependence ==

== ENCOUNTER → 2019-09-22 | Outpatient (CLI) | payer OTHER ==
[~2019-09-22] VITALS: Ht 190.5 cm; Wt 111.1 kg
[2019-09-22 10:43] VITALS: BP 122/72
--- NOTE | 2019-09-22 10:49 | NUR ---
Pain Clinic Assessment: 1. History of Osteoarthritis: SPINE HIPS History of Rheumatoid Arthritis: Not Applicable 2. Height: 6 ft. 3 in. 190.5 cm. Weight: 245.0 lb. oz. 111.132 kg. Patient's BMI: 30.6 3. Vital Signs: BP: 122/72 Pulse: 68 Resp: 20 Temp: 02 Sat: 96 ECG Mon: 4. Pain Intensity: back-4-5,left leg 6-7 5. Fall Risk: Dizziness: N Needs help standing or walking: N Fallen in the last 3 months: N Fall risk comments: 6. Patient on Blood Thinner: None 7. History of Hypertension: Y 8. Opioid Therapy greater than 6 weeks: Y Opiate Contract Signed: 05/29/16 9. Risk Assessment Tool Provided: *LOW RISK-3 10. Functional Assessment Tool: 11. Recreational Drug Use: Never Drug Type: Tobacco Use: Never Smoker Tobacco Type: Amount or Packs/day: How Many Years: Alcohol Use: Yes Frequency: Daily Quant: 1-2 daily
--- NOTE | 2019-09-26 13:27 | HPC ---
[facility] [address] [place] [place] [address] PAIN MANAGEMENT CONSULTATION Name: SANTHOSH LEE Room #: REG [facility]..#: [id number] Admission: 09/22/19 Attend Phys: Angelic Aguillon Discharge: Date of : 39 Report #: [id number] THIS REPORT FOR: cc: Kate Robison MD, Ammar MD Hocker,Angelic CURIEL ~ CC: Santhosh Topete MD DATE OF SERVICE: 09/22/2019 CHIEF COMPLAINT: Chronic low back pain with radiculopathy, status post laminectomy. HISTORY OF PRESENT ILLNESS: This is a very pleasant 79-year-old gentleman who is slightly depressed today, coming to discuss his medication managements that he uses to help treat his ongoing low back pain and leg pain. Today, he is reporting his pain at a 4-5, but states he has had some new pain in his left leg, stating that is a 6-7. He currently has a skin lesion that he is seeing the wound clinic for on his left leg that is the area that his pain is increased. Today, he reports he had it cleaned yesterday and it has been bothersome ever since, normally that pain is not problematic. The patient does state that his ongoing low back pain and right leg pain are stable. He feels the hydrocodone has been beneficial averaging 2 tablets a day. Denies any problems with constipation. He states that his pain is usually increased when he is walking or standing for prolonged periods of time. The patient states that he is slightly depressed today. He has a group of gentleman that he eats with once a week. They have been doing this for years. One gentleman is getting ready to move, so their numbers have continued to decrease after this move that he will be down to 3 gentleman meeting and he feels that they are going to disband and he is depressed over not seeing his friends that is his only social outing. ALLERGIES: No known drug allergies. CURRENT LIST OF MEDICATIONS: Hydrocodone 10/325 p.r.n., Lopressor, Zestril, aspirin and ibuprofen. PQRS: 1. He has arthritic changes in his spine and hips. Denies any rheumatoid arthritis. 2. Height is 6 feet 3 inches, weight is 245, BMI is 30. Vital signs 122/72, pulse is 68, respirations 20, oxygen sat is 96. Pain score in his back is 4-5, in his left leg is 6-7. The patient denies dizziness, does not need help walking or standing, has not fallen in the last 3 [place] [address] PAIN MANAGEMENT CONSULTATION Name: SANTHOSH LEE Room #: REG CLOTILDE Thorpe#: [id number] Admission: 09/22/19 Attend Phys: Angelic Aguillon Discharge: Date of : 39 Report #: [id number] 3. The patient is not on any blood thinners, but does take medicine for hypertension. His opioid therapy is greater than 6 weeks; therefore, an opioid signed contract is on the chart. Risk assessment tool is low. Functional assessment is . 4. Recreational drug use, he denies. He is not a smoker and occasionally drinks alcohol. According to the prescription monitoring system, he fills appropriately. His morphine mEq is 20 MMEs per day. PHYSICAL EXAMINATION: GENERAL: This is alert and orientated, well-developed, well-nourished 79-year-old gentleman who is slightly depressed today, placing his current pain score from 4-7. HEENT: Normocephalic, atraumatic. Extraocular eye muscles are intact. He is wearing a mask and glasses. EXTREMITIES: No clubbing, no cyanosis, no edema. He does have a bandage on his left cm with no drainage noted. MUSCULOSKELETAL: The patient is in a wheelchair today. He has a slow antalgic gait. He does have a walker that he uses at times. His pain is in the lumbosacral region that radiates into his bilateral legs, more prominent on the right than the left. He is deconditioned in his lower extremities. IMPRESSION: 1. Chronic intractable pain with radiculopathy. 2. Post-laminectomy syndrome. 3. Severe spinal stenosis of lumbar spine. 4. Lumbosacral spondylosis with radiculopathy. 5. Peripheral neuropathy. 6. Management of high risk medications under terms of written opioid agreement. 7. Depression We reviewed the fact that opiate medications are being used to provide analgesia adequate to support activities of daily living, not attempting to achieve a specific pain score on the 0-10 Visual Analog Scale. The current opiate medications are providing sufficient analgesia to allow the patient to participate in activities of daily living. The patient is not exhibiting any aberrant behavior suggestive of drug diversion. The patient is not having any adverse reactions to medications. The patient is not suffering from daytime somnolence or mental acuity changes. The patient is managing opiate-induced constipation with appropriate iddw-ues-bhkeslz agents and dietary considerations. The patient was counseled on concern for caution with operating a motor vehicle while using opiate medications. PLAN: 1. We discussed treatment options with the patient today. He finds his [facility] [address] [place] [address] PAIN MANAGEMENT CONSULTATION Name: SANTHOSH LEE Room #: REG CLOTILDE Thorpe#: [id number] Admission: 09/22/19 Attend Phys: Angelic Aguillon Discharge: Date of : 39 Report #: [id number] medication beneficial and would like to continue his hydrocodone. He denies problems with daytime somnolence or constipation as a result of these medications. We will refill the hydrocodone 10/325, #100 for today and 4-week release. These typically last him for a month. These will be sent electronically by Dr. Danis Rivas. 2. We did talk about his depression that he has been experiencing. We did discuss possible antidepressants, but I encouraged him to be in charge of the gathering with his friends since the leader is getting ready to move. I encouraged him to take charge of this group, so he can continue to have his once a week outing that is his only outside activity since retiring and does enjoy it. The patient feels at this time, he will try to take that advice and not seek any medication to help with his depression. We will revisit this at his next appointment. 3. The patient is seen today in collaboration with Dr. Perry Rivas who is covering for Dr. Topete. <ELECTRONICALLY SIGNED> By: Angelic Aguillon 09/26/19 1327 [id number] 1436 Angelic Aguillon /nt
== END ==
LOC: PAIN 06:46
PROVIDERS: ATTEND Clinical Nurse Specialist Adult Health
DX: M47.26 Other spondylosis with radiculopathy, lumbar region (principal); G89.29 Other chronic pain; M96.1 Postlaminectomy syndrome, not elsewhere classified; M48.061 Spinal stenosis, lumbar region without neurogenic claudication; G90.09 Other idiopathic peripheral autonomic neuropathy; F11.20 Opioid dependence, uncomplicated; F32.9 Major depressive disorder, single episode, unspecified; Z79.899 Other long term (current) drug therapy

== ENCOUNTER → 2019-11-30 | Outpatient (CLI) | payer OTHER ==
[~2019-11-30] VITALS: Ht 188 cm; Wt 113.4 kg
--- NOTE | ~2019-11-30 | HPC ---
[facility] [address] [place] [address] PAIN MANAGEMENT CONSULTATION Name: SHANIA LEE Room #: REG JACOBOAshlyn Ospina.#: [id number] Admission: 11/30/19 Attend Phys: Angelic Aguillon Discharge: Date of : 39 Report #: [id number] CC: Angelic Topete MD DATE OF SERVICE: 11/30/2019 CHIEF COMPLAINT: Chronic low back pain with radiculopathy, status post laminectomy, lower extremity weakness. HISTORY OF PRESENT ILLNESS: This is a very pleasant 79-year-old gentleman who returns to the pain clinic today for refill of his medications. Today, he is reporting that his pain is slightly increased in his leg and he has noticed that he is falling a few more times than normal. He feels like his legs are weak and just give out. Per his report, he has fallen several times since his last appointment. His is here today and cooperates that story. He does use a walker at home at all times and today, he is sitting in a wheelchair and has a cane with him. He is rating his pain 4-5 in his back and 6-7 in his right leg. He does also state that he has numbness and burning, tingly sensation in his lower right leg and foot. He does feel that hydrocodone is beneficial in helping with some of his pain, but he does have problems with constipation, so he tries to limit it to 2 tablets a day. The patient does report he is seeing Dr. Medhat Pace next Thursday, who is his neurologist. ALLERGIES: No known drug allergies. CURRENT LIST OF MEDICATIONS: Ibuprofen 800 mg p.r.n., hydrocodone 10/325 p.r.n., metoprolol, lisinopril, and aspirin. PQRS: 1. He has a history of osteoarthritis in his spine and hips. Denies rheumatoid arthritis. 2. Height is 6 feet 2 inches, weight is 250 and BMI is 32. Vital signs 131/79, pulse is 75, respirations 18, oxygen sat is 97. 3. Pain score is 4-5 in his back, 6-7 in his right leg. 4. Denies dizziness. Does need assistance with walking and has fallen in the last 3 months. He uses a walker or cane at all times, but is in a wheelchair today. 5. He is not on any blood thinners, but does take medicine for hypertension. 6. Opioid therapy is greater than 6 weeks; therefore, an opioid signed contract is on the chart. Risk assessment is low. Functional assessment . 7. Recreational drug use, he denies. He is not a smoker and occasionally drinks alcohol. According to the prescription monitoring system, the patient is filling appropriately in a timely fashion. His morphine mEq at 20 MME a day. PHYSICAL EXAMINATION: GENERAL: This is alert and orientated, well-developed, slightly obese 79-year-old gentleman who appears his stated age. He is a good historian. HEENT: Normocephalic, atraumatic. Extraocular eye muscles are intact. He is wearing a mask and glasses. EXTREMITIES: No clubbing, no cyanosis, no edema. MUSCULOSKELETAL: He is in a wheelchair today. He has a slow antalgic gait and using a cane or walker. He has pain in his lumbosacral region that radiates into his bilateral legs following the L4-L5 dermatomal distribution. His lower extremities are deconditioned, though strength is 5/5. IMPRESSION: 1. Chronic intractable pain with radiculopathy. 2. Post-laminectomy syndrome, multiple levels. 3. Severe spinal stenosis of the lumbar spine at L4-L5 level. 4. Lumbosacral spondylosis with radiculopathy. 5. Peripheral neuropathy. 6. Management of high risk medications under terms of written opioid agreement. We reviewed the fact that opiate medications are being used to provide analgesia adequate to support activities of daily living, not attempting to achieve a specific pain score on the 0-10 Visual Analog Scale. The current opiate medications are providing sufficient analgesia to allow the patient to participate in activities of daily living. The patient is not exhibiting any aberrant behavior suggestive of drug diversion. The patient is not having any adverse reactions to medications. The patient is not suffering from daytime somnolence or mental acuity changes. The patient is managing opiate-induced constipation with appropriate jwbu-pys-bktwtll agents and dietary considerations. The patient was counseled on concern for caution with operating a motor vehicle while using opiate medications. PLAN: 1. We discussed treatment options with the patient today. The patient feels that his legs are getting weaker. He is having more pain down his right leg. He has fallen several times and had an EMT or condenser operator from [facility] help him up. He has not sought medical attention after these falls. The patient has made an appointment with his neurologist for next week. 2. We discussed possible ordering an MRI to see if there are any significant changes in his back. He did have a laminectomy not a fusion by Dr. Neff in 2018. I also encouraged him to call for an appointment. After the patient has seen Dr. Pace, if he does not order an MRI, I will gladly order one, but then the patient needs to decide if he is going to have further surgery if needed or if he is going to treat his symptoms medically. The patient is unsure at this time if he would like to have surgery again due to being 79 years old, which we did discuss the risks of this. I will await a phone call from him next week before ordering an MRI. 3. We did discuss his numbness and tingly that is radiating down his right leg and discuss gabapentin. It may be beneficial to start this at 300 mg at bedtime for several days, then increase to one tablet in the morning, one tablet at night to see if his symptoms are decreased. Again, I will wait until after he sees a neurologist before starting this medication to see if he orders EMG or any further testing. The patient is agreeable with the plan of care. He will notify our office on Thursday. The patient will continue on his hydrocodone . Scripts will be sent electronically by Dr. Perry Rivas, who did see the patient and collaborated care today while covering for Dr. Topete. By: [id number] Angelic Aguillon /trish
[2019-11-30 11:00] VITALS: BP 131/79
--- NOTE | 2019-11-30 11:13 | NUR ---
Pain Clinic Assessment: 1. History of Osteoarthritis: SPINE HIPS History of Rheumatoid Arthritis: Not Applicable 2. Height: 6 ft. 2 in. 188.0 cm. Weight: 250.0 lb. oz. 113.400 kg. Patient's BMI: 32.1 3. Vital Signs: BP: 131/79 Pulse: 75 Resp: 18 Temp: 02 Sat: 97 ECG Mon: 4. Pain Intensity: back-4-5,left leg 6-7 5. Fall Risk: Dizziness: N Needs help standing or walking: Y Fallen in the last 3 months: Y Fall risk comments: 6. Patient on Blood Thinner: None 7. History of Hypertension: Y 8. Opioid Therapy greater than 6 weeks: Y Opiate Contract Signed: 05/29/16 9. Risk Assessment Tool Provided: *LOW RISK-3 10. Functional Assessment Tool: 11. Recreational Drug Use: Never Drug Type: Tobacco Use: Never Smoker Tobacco Type: Amount or Packs/day: How Many Years: Alcohol Use: Yes Frequency: Quant:
== END ==
LOC: PAIN 06:49
PROVIDERS: ATTEND Clinical Nurse Specialist Adult Health
DX: M47.26 Other spondylosis with radiculopathy, lumbar region (principal); G89.4 Chronic pain syndrome; M96.1 Postlaminectomy syndrome, not elsewhere classified; G62.89 Other specified polyneuropathies; Z79.891 Long term (current) use of opiate analgesic

== ENCOUNTER → 2020-01-05 | Outpatient (CLI) | payer OTHER | LOC: HYPER 13:24 | PROVIDERS: ATTEND Emergency Medicine | DX: L97.522 Non-pressure chronic ulcer of other part of left foot with fat layer exposed (principal); L97.512 Non-pressure chronic ulcer of other part of right foot with fat layer exposed; G60.3 Idiopathic progressive neuropathy; G64 Other disorders of peripheral nervous system; B35.1 Tinea unguium; I10 Essential (primary) hypertension; K21.9 Gastro-esophageal reflux disease without esophagitis; M20.41 Other hammer toe(s) (acquired), right foot; M79.674 Pain in right toe(s); M48.00 Spinal stenosis, site unspecified; M20.42 Other hammer toe(s) (acquired), left foot; Z79.82 Long term (current) use of aspirin; Z87.891 Personal history of nicotine dependence; Z96.60 Presence of unspecified orthopedic joint implant ==

== ENCOUNTER → 2020-01-06 | Outpatient (CLI) | payer OTHER | LOC: SJCVCIMAG 14:30 | PROVIDERS: ATTEND Emergency Medicine | DX: I73.9 Peripheral vascular disease, unspecified (principal) ==

== ENCOUNTER → 2020-02-07 | Outpatient (CLI) | payer OTHER ==
--- NOTE | 2020-02-08 07:47 | HPC ---
[facility] [address] [place] [address] PAIN MANAGEMENT CONSULTATION Name: SHANIA LEE Room #: REG CLOTILDE [facility]#: [id number] Admission: 02/07/20 Attend Phys: Angelic Aguillon Discharge: Date of : 39 Report #: [id number] THIS REPORT FOR: cc: Michael Fox Timothy C. DO Hocker,Angelic CURIEL ~ DATE OF SERVICE: 02/07/2020 CHIEF COMPLAINT: Chronic low back pain with radiculopathy, status post laminectomy, lower extremity weakness. This is a telemedicine appointment that I am speaking with the patient via the telephone due to recent positive COVID test, speaking with him from 1250 hours to 1310 hours via the telephone that they consented for. HISTORY OF PRESENT ILLNESS: This is a very pleasant 79-year-old gentleman who I am speaking with via the telephone today due to his recent diagnosis of COVID. The patient reports today that he had significant illness with his entire body aching that left him in bed for several days. He reports he has had a cough and is very weak. He did not run a fever per his report. His and grandson who lives with them are both positive as well, though were very mildly sick or no symptoms at all according to the patient. He believes that he contracted the virus from his grandson who does deliver food to people and lives with he and his . The patient reports a pain score of 4-5 today, though it had been as much as 7 when he was sick. He reports it is most significant in his lower back and down his right leg with numbness and tingly sensation in his leg. He believes the hydrocodone continues to be beneficial and would like refills of this medication currently. The patient does report he is not up to going out of the house yet, but his will be able to picking machine operator his medication for him at the pharmacy. The patient does report he is very weak and is wondering about starting physical therapy again. He believes his balance and weakness have increased since he was diagnosed with COVID. ALLERGIES: No known medication allergies. CURRENT LIST OF MEDICATIONS: Ibuprofen, hydrocodone 10/325, metoprolol, lisinopril, and aspirin. PQRS: 1. He has a history of osteoarthritis in his hips and spine. Denies rheumatoid arthritis. 2. Height, weight and vital signs were deferred. Pain score is a 6-7/10 today. 3. Denies dizziness. He needs assistance with walking, though he has not fallen recently. [address] [address] PAIN MANAGEMENT CONSULTATION Name: SHANIA LEE Room #: REG [facility].#: [id number] Admission: 02/07/20 Attend Phys: Angelic Aguillon Discharge: Date of : 39 Report #: [id number] 4. The patient is not on any blood thinners, but he does take medicine for hypertension. 5. Opioid therapy is greater than 6 weeks; therefore, an opioid signed contract is on the chart. Risk assessment is low. Functional assessment . 6. Recreational drug use, he denies. He is not a smoker and occasionally drinks alcohol. According to the prescription monitoring system, the patient is due to fill his medications. His morphine milliequivalent is 20 MME or below. PHYSICAL EXAMINATION: GENERAL: This is a review of systems today since it a telemed. This is an alert and orientated 79-year-old gentleman who is answering all my questions appropriately. He is a good historian, stating his pain as a 6-7/10 today in his lower back region that radiates into his legs. Reports significant weakness in his lower extremities and does use a walker at all times. IMPRESSION: 1. Chronic intractable pain with radiculopathy. 2. Post-laminectomy syndrome. 3. Severe spinal stenosis of the spine at the L4-L5 level. 4. Lumbosacral spondylosis with radiculopathy. 5. Peripheral neuropathy. 6. Management of high-risk medications under terms of written opioid agreement. We reviewed the fact that opiate medications are being used to provide analgesia adequate to support activities of daily living, not attempting to achieve a specific pain score on the 0-10 Visual Analog Scale. The current opiate medications are providing sufficient analgesia to allow the patient to participate in activities of daily living. The patient is not exhibiting any aberrant behavior suggestive of drug diversion. The patient is not having any adverse reactions to medications. The patient is not suffering from daytime somnolence or mental acuity changes. The patient is managing opiate-induced constipation with appropriate jcbw-xqw-pwlbahr agents and dietary considerations. The patient was counseled on concern for caution with operating a motor vehicle while using opiate medications. PLAN: 1. We discussed treatment options with the patient today. I explained to the patient due to his recent COVID diagnosis and his significant weakness if he would like us to order physical therapy for him, we would be glad to do this to gain strength. The patient reports he believes he will be able to continue on his current order that he has at [facility], but if not, he will notify our office and we will fax a prescription for strengthening exercises. 2. The patient is needing his hydrocodone. We will send this medication electronically for his hydrocodone 10, #100 for today and 4-week supply. [address] [place] [address] PAIN MANAGEMENT CONSULTATION Name: SHANIA LEE Room #: OMAR [facility]#: [id number] Admission: 02/07/20 Attend Phys: Angelic Aguillon Discharge: Date of : 39 Report #: [id number] 3. The patient is seen today in collaboration with Dr. William Fraser who is covering for Dr. Topete. <ELECTRONICALLY SIGNED> By: Angelic Aguillon 02/08/20 0747 [id number] Angelic Aguillon /nt
== END ==
LOC: TELEPC 12:04
PROVIDERS: ATTEND Clinical Nurse Specialist Adult Health
DX: M47.27 Other spondylosis with radiculopathy, lumbosacral region (principal); M96.1 Postlaminectomy syndrome, not elsewhere classified; R53.1 Weakness; M48.061 Spinal stenosis, lumbar region without neurogenic claudication; G62.9 Polyneuropathy, unspecified; F11.20 Opioid dependence, uncomplicated; Z88.8 Allergy status to other drugs, medicaments and biological substances; Z79.899 Other long term (current) drug therapy

== ENCOUNTER 2020-04-30 16:54 | Inpatient (IN) | payer OTHER ==
[~2020-04-30] VITALS: Ht 190.5 cm; Wt 122.5 kg
--- NOTE | ~2020-04-30 | HC ---
[facility] [place] [address] CONSULTATION Name: SHANIA LEE Room #: 435-P [facility] ..#: [id number] Admission: 04/30/20 Attend Phys: Trever Arroyo MD Discharge: Date of : 39 Report #: [id number] THIS REPORT FOR: cc: Michael Fox Timothy C. DO Smithson, David G. 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 He has a prior history of a nondiabetic peripheral neuropathy. He notes he has had prior evaluation regarding the peripheral neuropathy without any obvious cause and that he does not have diabetes. His course has been complicated by an episode of COVID in 01/2020 and that has left him still with some residual weakness. At this point, he has bilateral lower extremity wounds with cellulitis with ulcers over bilateral great toes. He also was noted to have a DTI of the right heel. Stage 3, left heel and DTI sacrogluteal area. He has acute renal insufficiency. We are seeing him in rehabilitation medicine consultation. PAST MEDICAL HISTORY: Includes bilateral total hip replacements in approximately 2001. He has a history of chronic intractable pain with lumbar radiculopathy and post-laminectomy syndrome with severe spinal stenosis. He is followed with pain management and has been on chronic opioids with hydrocodone. MEDICATIONS: Per the APR. ALLERGIES: No known drug allergies. SOCIAL HISTORY: He lives with his in a house, 3 steps in, 1 level. He used a walker or wheelchair just recently. Previously, he had been using more of a cane versus a walker. apparently helped him some with some of his bathing. REVIEW OF SYSTEMS: No current complaints of chest pain, shortness of breath or abdominal discomfort. PHYSICAL EXAMINATION: GENERAL: An 79-year-old white male in no obvious distress. He is alert, oriented, and pleasant. HEENT: Appeared to be benign. Facies are symmetric. VITAL SIGNS: Temperature 98.3, pulse 83, respirations 18, blood pressure 137/77. EXTREMITIES: He has some mild decreased shoulder range of motion at end range. Upper extremity strength is a grade 4-/5. Upon examination of his lower extremities, he does have ulcers noted over bilateral great toes. He has some [facility] [address] [place] [address] CONSULTATION Name: SHANIA LEE Room #: 435-P [facility]#: [id number] Admission: 04/30/20 Attend Phys: Trever Arroyo MD Discharge: Date of : 39 Report #: [id number] verrucous skin changes of his distal lower extremities. The lower extremities appeared to be warm. There is no focal calf swelling. I would grade his strength probably a grade 3+/5 to possibly 4-. He does have decreased sensation, proprioception, bilateral large toes. Therapy evaluations are underway. ASSESSMENT: An 79-year-old white male with the following problem list: 1. Idiopathic peripheral neuropathy. 2. Likely residual weakness from recent COVID. 3. Bilateral foot cellulitis with toe ulcers. 4. Multiple lower extremity wounds with wound care involved as noted. 5. Acute renal insufficiency. PLAN: Therapy evaluations are underway. He certainly may be a candidate for an acute in-hospital inpatient 5 [facility] rehabilitation stay depending upon how he does in therapies. We will be glad to follow along with you regarding his rehab therapy needs. By: [id number] Narayan Kulkarni MD /nt
[~2020-04-30 16:54] MED LIST changes: -CEFUROXIME250 MG PO; -DOXYCYCLINE HY100 M3 PO; -METOPROLOL TAR100 MG PO; -MIRALAX17 GM PO; -NORVASC5 MG PO
[2020-04-30 18:25] VITALS: BP 108/85
[2020-04-30 18:36] LABS: ABSOLUTE NEUTROPHILS 4.1 thou/uL (1.4-8.2); BASOPHILS 0.6 % (0.0-2.0); EOSINOPHILS 3.2 % (0.0-3.0); HEMATOCRIT 35.2 % (42.0-52.0); HEMOGLOBIN 11.4 gm/dL (14.0-18.0); LYMPHOCYTES 14.9 % (24.0-44.0); MCH 34.2 pg (26.0-34.0); MCHC 32.3 g/dL (28.0-37.0); MCV 105.9 fL (80.0-100.0); MONOCYTES 13.1 % (1.0-8.0); PLATELET COUNT 186 thou/uL (150-400); POLYS 68.2 % (36.0-66.0); RBC 3.33 mil/uL (4.50-6.00)
[2020-04-30 19:03] LABS: POTASSIUM 4.2 mmol/L (3.5-5.1)
[2020-04-30 19:04] LABS: ALBUMIN 3.3 g/dL (3.4-5.0); DIRECT BILIRUBIN 0.2 mg/dL (<0.1-0.2); TOTAL BILIRUBIN 0.4 mg/dL (0.2-1.0); TOTAL PROTEIN 7.7 g/dL (6.4-8.2)
[2020-04-30] MEDS ORDERED: METOPROLOL TAR100 MG PO (22:00)
[2020-04-30 23:13] VITALS: BP 139/76
--- NOTE | 2020-04-30 23:13 | NUR ---
HANDOFF SENT TO 4W
[2020-04-30 23:34] VITALS: BP 139/76
[2020-05-01 00:31] VITALS: BP 157/80
[2020-05-01 04:44] VITALS: BP 158/87
--- NOTE | 2020-05-01 05:50 | NUR ---
[facility] CARE OF PT FROM ED AT 2340HRS. PT IS AOX3 AND LETS NEEDS BE KNOWN. FALL PRECAUTION IN PLACE. PT WAS ORIENTED TO THE UNIT AND HIS ROOM. PT WAS ABLE TO ANSWER MOST ADMISSION RELATED QUESTIONS. PT DENIED PAIN; NAUSEA OR SOA. ASSESSMENT CHARTED. ORDERS RECEIVED AND STARTED. PT WAS TIRED AND SLEPT PART OF THE SHIFT. VSS AND NO S/S OF ACUTE DISTRESS. WILL CONTINUE TO MONITOR FOR CHANGES.
[2020-05-01 05:59] LABS: HEMATOCRIT 32.9 % (42.0-52.0); HEMOGLOBIN 10.9 gm/dL (14.0-18.0); MCH 34.7 pg (26.0-34.0); MCHC 33.2 g/dL (28.0-37.0); MCV 104.7 fL (80.0-100.0); RBC 3.15 mil/uL (4.50-6.00); RDW 14.4 % (10.5-14.5); WBC 6.2 thou/uL (4.0-11.0)
[2020-05-01 06:08] LABS: CALCIUM 10.5 mg/dL (8.5-10.1); CREATININE 1.8 mg/dL (0.7-1.3); POTASSIUM 3.8 mmol/L (3.5-5.1)
[2020-05-01 07:50] VITALS: BP 140/82
--- NOTE | 2020-05-01 12:06 | NUR ---
PT ADMITTED RELATED TO ELEVATED LIPASE; WOUNDS. CM REVIEWED CHART AND SPOKE WITH CARE TEAM. CM MET WITH PT AND SPOUSE AT BEDSIDE THIS DAY. PT APPEARED TO BE A&O X4 BUT [place]. CM ROLE INTRODUCED. PT AND SPOUSE INDICATED THAT THEY RESIDE IN A HOUSE WITH 3 STEPS TO ENTER AND NONE PT USES INSIDE. PT INDICATED HE HAS A CANE, FWW, AND WC FOR HOME USE. PT'S SPOUSE INDICATED THAT PT IS CURRENTLY ON SERVICE WITH [facility]. THEY INDICATED THAT THEY ANTICIPATE RETURING HOME AND RESUMEING SERVICES WITH [facility] ONCE MEDICALLY STABLE. CM RECIEVED PC FROM SLOAN AT [facility] AND SHE INDICATED THAT THEY WOULD RECOMMEND THAT PT GO FOR SHORT TERM SKILLED REHAB STAY UPON DC. CM CONVEYED THE ABOVE TO THEM. CM INDICATED THAT THERAPY AND CARE TEAM TO ASSESS AND THAT CM WOULD KEEP THEM UPDATED. CM TO FOLLOW INIDCATED WITH DC PLANNING. PT IS ON IV VAN WC CONSULTED.
[2020-05-01 15:30] VITALS: BP 130/76
[2020-05-01 18:20] VITALS: BP 165/59
--- NOTE | 2020-05-01 18:49 | NUR ---
ASSUMED PATIENT CARTE AT 0700. A/O X4 FORGETFUL. WOUND CARE PER ORDER. PATIENT INCONTINENT URINE. WILL KEEP MONITOR.
--- NOTE | 2020-05-02 03:38 | NUR ---
PT C/O PAIN IN HIS ABD,MANAGED WITH MED.PT INCON OF B&B,AUBREY CARE DONE,ZGURD TO HIS BUTTOCK.DRSG TO THE WOUND ON HIS DAMON TOE D/I.BLE EDEMA FEET ELEVATED WITH A PILLOW.PT CONT ON IVF AND IV ABX.BENADRYL GIVEN AT HS PER PT'S REQUEST.PT SLEEPING ON HIS BED AT THIS TIME.CALL LIGHT WITHIN REACH.
[2020-05-02 04:11] VITALS: BP 141/80
[2020-05-02 07:36] VITALS: BP 137/77
[2020-05-02 13:39] LABS: CALCIUM 10.1 mg/dL (8.5-10.1); CREATININE 1.5 mg/dL (0.7-1.3); POTASSIUM 3.8 mmol/L (3.5-5.1)
--- NOTE | 2020-05-02 13:41 | NUR ---
ON-GOING ASSESSMENT: CM REVIEWED CHART AND SPOKE WITH PATIENT AT THE BEDSIDE ALONG WITH HIS . PT IS AGREEABLE TO GO TO [facility] AND [facility] STATING THEY CAN ACCEPT HIM TODAY BUT NEED A COVID TEST COMPLETE PRIOR TO ACCEPTING. CM NOTIFIED BEDSIDE RN AND TEST COLLECTED. PT HAS A PAST HX OF TESTING POSITIVE FOR COVID IN NOV/JAN AND [facility] NOTIFIED. CM WILL CONTINUE TO FOLLOW TO ASSIST NEEDED AND LIKELY DISCHARGE THIS EVENING TO [facility].
[2020-05-02 15:39] VITALS: BP 139/89
--- NOTE | 2020-05-02 15:46 | NUR ---
Assumed pt care this am. Pt is alert x oriented x4. Pt has R FA. Pt has wound on 2 R toe, L toe, L heel & sacral. Pt refused wound dressing and wanted wound care to see and change it. Pt c/o of pain and given hydrocodone for pain. Pt on room air. Pt is at the bedside. Given report to [facility]. Pt on the bed, bed on the lowest position, side rails up, call light within reach.
[2020-05-02] MEDS ORDERED: NORVASC5 MG PO (16:26)
[2020-05-02] MEDS ORDERED: CEFUROXIME250 MG PO (16:26)
[2020-05-02] MEDS ORDERED: MIRALAX17 GM PO (16:26)
[2020-05-02] MEDS ORDERED: DOXYCYCLINE HY100 M3 PO (16:26)
== END 2020-05-02 17:57 | DRG 602 ==
LOC: ER 16:54 → 4W 21:43 → 4S 21:43 → EROBS 21:43 → 4W 23:34 → 4S 05-01 18:54
PROVIDERS: Nurse Practitioner; Nurse Practitioner Family; ADMIT Hospitalist; ATTEND Hospitalist
DX: L03.032 Cellulitis of left toe (principal); L89.623 Pressure ulcer of left heel, stage 3; N17.9 Acute kidney failure, unspecified; E44.1 Mild protein-calorie malnutrition; E11.621 Type 2 diabetes mellitus with foot ulcer; L89.616 Pressure-induced deep tissue damage of right heel; L89.156 Pressure-induced deep tissue damage of sacral region; L97.519 Non-pressure chronic ulcer of other part of right foot with unspecified severity; L97.529 Non-pressure chronic ulcer of other part of left foot with unspecified severity; L03.031 Cellulitis of right toe; G60.9 Hereditary and idiopathic neuropathy, unspecified; R74.8 Abnormal levels of other serum enzymes; R53.81 Other malaise; E11.22 Type 2 diabetes mellitus with diabetic chronic kidney disease; I12.9 Hypertensive chronic kidney disease with stage 1 through stage 4 chronic kidney disease, or unspecified chronic kidney disease; N18.9 Chronic kidney disease, unspecified; Z96.643 Presence of artificial hip joint, bilateral; Z68.33 Body mass index [BMI] 33.0-33.9, adult; Z86.16 Personal history of COVID-19; Z79.82 Long term (current) use of aspirin; Z79.899 Other long term (current) drug therapy; Z20.822 Contact with and (suspected) exposure to COVID-19
CPT/HCPCS: 10040; 10195

== ENCOUNTER → 2020-04-30 | Outpatient (CLI) | payer OTHER ==
[~2020-04-30] MED LIST changes: +CEFUROXIME250 MG PO; +DOXYCYCLINE HY100 M3 PO; +METOPROLOL TAR100 MG PO; +MIRALAX17 GM PO; +NORVASC5 MG PO
== END ==
LOC: HYPER 10:21
PROVIDERS: ATTEND Emergency Medicine
DX: L97.522 Non-pressure chronic ulcer of other part of left foot with fat layer exposed (principal); L97.512 Non-pressure chronic ulcer of other part of right foot with fat layer exposed; L97.411 Non-pressure chronic ulcer of right heel and midfoot limited to breakdown of skin; L97.422 Non-pressure chronic ulcer of left heel and midfoot with fat layer exposed; S81.811A Laceration without foreign body, right lower leg, initial encounter; B35.1 Tinea unguium; G60.3 Idiopathic progressive neuropathy; M79.674 Pain in right toe(s); M20.42 Other hammer toe(s) (acquired), left foot; M20.41 Other hammer toe(s) (acquired), right foot; M48.00 Spinal stenosis, site unspecified; G64 Other disorders of peripheral nervous system; I10 Essential (primary) hypertension; Z79.82 Long term (current) use of aspirin; Z87.891 Personal history of nicotine dependence; Z79.899 Other long term (current) drug therapy; X58.XXXA Exposure to other specified factors, initial encounter; Y93.89 Activity, other specified; Y92.89 Other specified places as the place of occurrence of the external cause; Y99.8 Other external cause status

== ENCOUNTER 2020-05-02 12:16 | Inpatient (IN) | payer OTHER ==
[~2020-05-02] VITALS: Ht 182.9 cm; Wt 108.9 kg
[~2020-05-02 12:16] MED LIST changes: +METOPROLOL TAR100 MG PO
[2020-05-02] MEDS ORDERED: NORVASC5 MG PO (16:26)
[2020-05-02] MEDS ORDERED: MIRALAX17 GM PO (16:26)
[2020-05-02] MEDS ORDERED: CEFUROXIME250 MG PO (16:26)
[2020-05-02] MEDS ORDERED: DOXYCYCLINE HY100 M3 PO (16:26)
[2020-05-02 18:15] VITALS: BP 131/56
--- NOTE | 2020-05-02 18:57 | NUR ---
[age] YEAR OLD MALE ADMITTED TO [facility] ROOM 511 DUE TO WEAKNESS. PT ALERT AND ORIENTED TIMES FOUR WITH PERIODS OF CONFUSION. PT DENIES PAIN/SOA AT THIS TIME, BUT STATES HE DOES HAVE CHRONIC LOWER BACK PAIN. PT'S IS AT BEDSIDE DURING ADMISSION. WILL CONTINUE TO MONITOR.
[2020-05-02 19:24] VITALS: BP 133/76
--- NOTE | 2020-05-03 05:18 | NUR ---
PT ASSESSMENT COMPLETED AND VSS. MEDS GIVEN ORDERED AND WELL TOLERATED. PT C/O PAIN AND WANTING BENADRYL TO HELP HIM SLEEP. PT PAIN CONTROLLED AND SLEEPING WELL. PT HAD 3 INC LARGE AMOUNTS OF URINE. ALSO 2 SOFT LARGE UNFORMED BOWEL MOVEMENTS THAT WERE INC WELL. ASST WITH REPOSITION FOR COMFORT. PICTURE TAKEN OF PRESSURE WOUND ON BOTTOM AND Z GUARD APPLIED. SLEEPING WELL AT THIS TIME. DRESSINGS ON DAMON FEET DRY AND INTACT. PT WEARING PRAFO BOOTS WHILE IN BED. WILL CONTINUE TO MONITOR FREQUENTLY. PT REMAINS PLEASANT AND CONFUSED.
[2020-05-03 05:50] LABS: HEMATOCRIT 33.7 % (42.0-52.0); HEMOGLOBIN 11.1 gm/dL (14.0-18.0); MCH 34.9 pg (26.0-34.0); MCHC 32.8 g/dL (28.0-37.0); MCV 106.4 fL (80.0-100.0); RBC 3.17 mil/uL (4.50-6.00); RDW 15.4 % (10.5-14.5); WBC 5.4 thou/uL (4.0-11.0)
[2020-05-03 05:51] LABS: CALCIUM 9.5 mg/dL (8.5-10.1); CREATININE 1.4 mg/dL (0.7-1.3)
[2020-05-03 07:15] VITALS: BP 151/88
[2020-05-03 10:41] LABS: FOLIC ACID 6.8 ng/mL (8.6-58.9)
--- NOTE | 2020-05-03 10:48 | NUR ---
Recommend start zinc sulfate and vitamin C supplementation due to wounds
--- NOTE | 2020-05-03 11:50 | NUR ---
chart review. cm visited with pt at bedside, he was getting ready to sit up and transfer out of bed with therapy. noted, he lives home with his , house has 3 steps to enter home. normal when feeling ok, he is independent. has cane, fww, and wheel chair. been on service with [facility]. he was working with therapy during visit. cm cont to wear mask and face shield during visit. " i have been sick, not feeling good"/joão. noted he had covid in nov/dec. will cont following as needed for dc needs.
--- NOTE | 2020-05-03 17:34 | NUR ---
assumed care of pt at 0700. pt alert and oriented x3 in no acute distress. pain controlled with current med regimen. breathing comfortably on room air. at bedside throughout the day. up w/ 1 assist and walker. wounds debridment at bedside by wound care physician. redressed per order. calls appropriately. wcm.
[2020-05-03 19:53] VITALS: BP 127/66
--- NOTE | 2020-05-03 20:02 | O ---
[facility] [place] [address] OPERATIVE REPORT Name: SHANIA LEE Room #: 511-P [facility] M.R.#: [id number] Admission: 05/02/20 Attend Phys: Narayan Kulkarni MD Discharge: Date of : 39 Report #: [id number] THIS REPORT FOR: cc: Michael Fox Timothy C. DO Althoff, Jeffrey R. MD ~ DATE OF SERVICE: 05/03/2020 This is a debridement procedure note. HISTORY OF PRESENT ILLNESS: This is an 79-year-old male patient with a history of peripheral neuropathy and diabetic ulcerations to the dorsal aspects of the right first and second toes and left great toe. There has been increasing crusting, some eschar forming present. With verbal permission with him and his at the bedside, they are in agreement with a surgical debridement to remove necrotic tissue down to healthy subcutaneous tissue, a time-out was taken. Correct site and procedure was verified with my nurse as well as with the patient and his at the bedside. The areas were then prepped and draped in usual sterile fashion. No anesthesia was required due to the patient's significant amount of neuropathy. A #15 bladed scalpel was then used to perform sharp full thickness debridement of the right great toe, right second toe and left great toe. All areas involved sharp full thickness removal of skin, subcutaneous tissue and eschar down to a clean bleeding base. The patient tolerated the procedure well. Hemostasis was controlled with direct pressure. Pain 0/10. COMPLICATIONS: None. SPECIMENS: Culture and sensitivity sent. MEASUREMENTS: Right great toe pre-debridement 1.2 x 1.0 x 0.1, post-debridement 1.5 x 2.0 x 0.2 cm. Right second toe pre-debridement measurements 0.4 x 0.5 x 0.1, post-debridement measurement 0.7 x 1.0 x 0.2. Left great toe pre-debridement measurements 0.7 x 1.0 x 0.1, post-debridement measurements 1.5 x 1.7 x 0.2. <ELECTRONICALLY SIGNED> By: Pravin Dawson MD 05/03/202001 1650 [id number] Pravin Dawson MD /nt
[2020-05-03 22:06] LABS: GLYCOHEMOGLOBIN (HGB A1C) 5.2 % (4.8-5.6)
--- NOTE | 2020-05-04 00:38 | NUR ---
PT ALERT AND ORIENTED X 4, FORGETFUL. DRESSINGS TO FEET C/D/I. PT REFUSED PRAFO BOOTS. ALSO REFUSED TO BE TURNED AND CHECKED FOR INCONT DURING THE NIGHT. STATED I JUST WANT TO SLEEP. PT C/O PAIN IN HIS BACK. HYDROCODONE GIVEN ORDERED. BENADRYL GIVEN AT HS PER PT REQUEST FOR SLEEP. BED ALARM ON FOR SAFETY. PT APPEARS TO BE SLEEPING ON HOURLY ROUNDS.
[2020-05-04 07:46] VITALS: BP 146/95
--- NOTE | 2020-05-04 14:53 | NUR ---
PT ALERT AND ORIENTED TIMES FOUR. VSS. PT C/O PAIN PRN PAIN MEDICATIONS GIVEN WITH GOOD RELEIF. PT TOLERATES MEDS AND MEALS. PT WORKED WELL WITH PT/OT. PT AT BEDSIDE. WILL CONTINUE TO MONITOR.
[2020-05-04 20:00] VITALS: BP 150/91
--- NOTE | 2020-05-05 05:05 | NUR ---
RECIEVED CARE OF THIS PATIENT AT 1900. PATIENT AND ALERT X4. DRESSING ON DAMON LOWER EXT D/I. HAS BOOTS ON DAMON. DENIES PAIN. DID NOT WANT TO BE WOKE UP DURING NIGHT. SLEPT MOST OF NIGHT.
[2020-05-05 06:30] VITALS: BP 143/76
--- NOTE | 2020-05-05 18:39 | NUR ---
BLADDER SCAN COMPLETED AND MAX VOLUME WAS ONLY 126MLS. NOW RESTING IN BED. WILL CONT WITH PLAN OF CARE.
[2020-05-05 19:31] VITALS: BP 128/72
--- NOTE | 2020-05-05 23:06 | NUR ---
PT WAS VERY ANGRY WHEN ASKED TO HAVE HIS BG CHECKED. EXPLAINED TO PT WHY THE DR WANTED IT CHECKED. PT STILL REFUSED.
--- NOTE | 2020-05-05 23:55 | NUR ---
PT ASSESSMENT COMPLETED AND VSS. MEDS GIVEN ORDERED AND WELL TOLERATED. PT INC OF LARGE AMOUNT OF URINE AND BM. AUBREY CARE PROVIDED. ZGUARD APPLIED TO WOUND ON BOTTOM. REPOSITIONED PT OFF OF PRESSURE AREA. PT REFUSED AND ASKED TO HAVE PILLOWS REMOVED. PER ORDERS ATTEMPTED TO CHECK BG THIS EVENING. PT GOT VERY UPSET AN SAID "I REFUSE. MY BG IS FINE. I AM EATING NOW." THEN PT DID NOT WANT TO BE BOTHERED WITH ANYTHING ELSE. HE REFUSED. SO WILL TRY AGAIN IN THE MORNING TO GET ORTHOSTATIC BP AND URINE AND POST VOID RESIDUAL. PT AGITATED AND NOT WANTING TO BE BOTHERED. PT NORMALLY VERY PLEASANT BUT AFTER BEING ASKED TO HAVE HIS BG CHECKED HE GOT VERY UPSET AND NOT WILLING TO WORK WITH STAFF. WILL CONTINUE TO MONITOR FREQUENTLY.
[2020-05-06 03:56] LABS: URINE BILIRUBIN NEGATIVE (Negative); URINE BLOOD NEGATIVE (Negative); URINE CLARITY CLEAR; URINE COLOR YELLOW; URINE GLUCOSE-RANDOM* NEGATIVE (Negative); URINE KETONES NEGATIVE (Negative); URINE LEUKOCYTES-REFLEX NEGATIVE (Negative); URINE NITRITE-REFLEX NEGATIVE (Negative); URINE PROTEIN (DIPSTICK) NEGATIVE (Negative); URINE SPECIFIC GRAVITY 1.015 (1.005-1.035); URINE UROBILINOGEN 0.2 E.U./dl (0.2-1.0)
[2020-05-06 08:00] VITALS: BP 136/74
--- NOTE | 2020-05-06 18:16 | NUR ---
PATIENT UP ON W/C AT THIS TIME. HE HAS BEEN ON PAIN MEDS MUCH TIME ALLOWS. STATES HIS PAIN IS MUCH WORSE TODAY. HE IS ALERT ORIENTED X4. RESPIRATIONS ARE NON LABORED. WILL CONT WITH PLAN OF CARE.
[2020-05-06 19:27] VITALS: BP 122/64
--- NOTE | 2020-05-06 22:06 | NUR ---
ASSUMED CARE OF PT AT 1900. PT IS A&OX4. IS ON ROOM. IS STABLE. DENIES PAIN AT THIS TIME IN BLE. HX OF N/T. DRSG TO FEET C/D/I. ZGUARD TO BUTTOCKS. IS TURN Q2H. IS UP WITH 1 ASSIST, GB, WALKER STAND PIVOT TO CHAIR & BED. FALL PRECAUTIONS & HOURLY ROUNDING MAINTAINED. LABS & VITALS REVIEWED. PT IS CURRENTLY IN BED. CALL LIGHT WITHIN REACH. WILL CONTINUE TO MONITOR.
--- NOTE | 2020-05-07 07:28 | NUR ---
ASSUMED PT CARE AT AROUND 2300 HRS.PT IS ALERT AND ORIENTED. HE DID NOT CALL WITH NEEDS. PRAFO BOOTS IN PLACE. PT REFUSES TO BE BOTHERED IN THE NOC-SO REPOSITIONING NOT PROVIDED Q2 SCHEDULED. THIS MORNING HE WAS SOAKED, BARRIER CRM APPLIED TO BOTTOM. URINAL PROVIDED. HE IS IN A PLEASNT MOOD AWAITING THERAPY.
[2020-05-07 08:00] VITALS: BP 135/69
--- NOTE | 2020-05-07 18:02 | NUR ---
PT TOLERATED THERAPIES WELL TODAY, C/O GENERALIZED ABD PAIN EARILER IN DAY, AND THEN TREATED WITH SIMETHICONE, PAIN MEDS, AND HAD LARGE BM WITH RESOLUTION OF PAIN. DRESSINGS ARE CHANGED, AND HEALING WELL AND WERE ALSO ASSESSED BY HIS AND TJ THE WOUND CARE TEAM.
[2020-05-07 19:34] VITALS: BP 111/69
--- NOTE | 2020-05-08 01:32 | NUR ---
PT ALERT AND ORIENTED X 4, FORGETFUL. DRESSINGS TO FEET C/D/I WITH EXCEPTION OF SMALL AMT BLOODY DRAINAGE ON RIGHT TOE. PRAFO BOOTS ON. PT REFUSES TO BE WOKE UP FOR TURNS AND INCONT CHECKS. STATED AT HS I WILL BE REALLY HAPPY IF NOBODY WAKES ME UP TONIGHT. PT C/O GENERALIZED PAIN. HYDROCODONE GIVEN ORDERED. BENADRYL GIVEN AT HS PER PT REQUEST FOR SLEEP. BED ALARM ON FOR SAFETY. PT APPEARS TO BE SLEEPING ON HOURLY ROUNDS.
[2020-05-08 05:45] LABS: ABSOLUTE NEUTROPHILS 4.9 thou/uL (1.4-8.2); BASOPHILS 1.1 % (0.0-2.0); EOSINOPHILS 5.2 % (0.0-3.0); HEMATOCRIT 32.2 % (42.0-52.0); HEMOGLOBIN 10.6 gm/dL (14.0-18.0); MCH 34.1 pg (26.0-34.0); MCHC 32.9 g/dL (28.0-37.0); MCV 103.7 fL (80.0-100.0); MONOCYTES 9.7 % (1.0-8.0); PLATELET COUNT 205 thou/uL (150-400); RBC 3.11 mil/uL (4.50-6.00); RDW 14.9 % (10.5-14.5); WBC 7.3 thou/uL (4.0-11.0)
[2020-05-08 06:20] LABS: CALCIUM 9.3 mg/dL (8.5-10.1); CREATININE 1.3 mg/dL (0.7-1.3); MAGNESIUM 1.6 mg/dL (1.8-2.4); POTASSIUM 3.8 mmol/L (3.5-5.1)
[2020-05-08 07:15] VITALS: BP 144/69
--- NOTE | 2020-05-08 10:09 | HC ---
[facility] [place] [address] CONSULTATION Name: SHANIA LEE Room #: 511-P ADM IN M.R.#: [id number] Admission: 05/02/20 Attend Phys: Narayan Kulkarni MD Discharge: Date of : 38 Report #: [id number] THIS REPORT FOR: cc: Michael Fox Timothy C. DO Deutch,Edy Omer. PhD ~ DATE OF SERVICE: 05/05/2020 BEHAVIORAL STATUS EXAM AGE: 79. ATTENDING PHYSICIAN: Narayan Kulkarni MD CNC ROUTER OPERATOR: Edy Cagle, PhD CLINICAL PRESENTATION: The patient is an 79-year-old male admitted to the rehabilitation unit for comprehensive inpatient rehabilitation program. His medical problem list included elevated lipase and a nonhealing nonsurgical wound. 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 A complete description of his medical condition and history along with medications can be found in his medical record. Neuropsychological consultation was requested to provide assistance in the assessment of cognitive and emotional status and provide recommendations and services. Prior to this most recent admission, the patient reports having been independent with activities of daily living up until his COVID infection in January. He indicates significant generalized weakness and incomplete recovery from the COVID infection. He reports having difficulty with mobility for about two years that required a laminectomy. 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 His half-way is reported to have been about 3 years ago. His son about 7 years ago from a motor vehicle accident. The patient stated the he was driving and independent with ADLs prior to this recent medical event. TECHNIQUES UTILIZED: Clinical interview, review of medical records, staff consultation and behavioral observation and mini mental status exam 2 brief version. [facility] [address] [address] CONSULTATION Name: SHANIA LEE Room #: 511-P [facility] IN [facility].#: [id number] Admission: 05/02/20 Attend Phys: Narayan Kulkarni MD Discharge: Date of : 38 Report #: [id number] EXAMINATION FINDINGS: The patient was alert and oriented during the assessment. He accurately described events surrounding his admission. He does not present with an aphasia. Thoughts are logical and goal oriented. He does indicate having difficulty with his memory and possibly word finding. However, he is reluctant to have a formal neurocognitive evaluation. Difficulty with appetite and subjective depression are suggested. He does not report difficulty with sleep or anxiety. Performance on the MMSE 2 brief version was within normal limits with a raw score of 14/16. He was 3/3 for initial registration, 5/5 for orientation to time and place. The patient was able to copy a simple geometric design. The patient was unable to draw a clock and set the hands at a designated time. Perseverative motor response was noted in clock drawing along with inaccurate hand placement. The patient is alert and oriented. However, deficits are suggested in immediate recall as well as visual spatial construction. 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 Possible depressive disorder. RECOMMENDATIONS: The patient will likely benefit from more thorough neuropsychological assessment to clarify cognitive status. However, he is reluctant to have a more thorough neurocognitive evaluation. Additionally, difficulty with appetite is reported. He may benefit from the use of antidepressant medication. His family should be informed of concerns regarding cognition and assistance in the management of medication, finances, and nutrition is recommended to maintain safety and avoid possible errors. Driving should be discontinued until a more thorough assessment of cognitive functioning can be achieved. Thank you very much for allowing me to provide the consultation on this patient. <ELECTRONICALLY SIGNED> By: Edy Cagle, PhD 05/08/20 1009 [id number] Edy Cagle, PhD /nt
--- NOTE | 2020-05-08 13:16 | NUR ---
team meeting, reccommendation: incont at hs, timed void. bilat heel boots. will needs assist with pills and bills. poor insight. down since [facility]ci. 38-65 ft with contact assist. he get axiety when getting fatiqued. dc 05/17 cont with alma gaitan ( pt, ot, nursing). private duty if needed. no dme.
--- NOTE | 2020-05-08 15:05 | PLAN ---
[facility] [place] [address] REHAB UNIT PLAN OF CARE Name: SHANIA LEE Room #: 511-P ADM IN M.R.#: [id number] Admission: 05/02/20 Attend Phys: Narayan Kulkarni MD Discharge: Date of : 38 Report #: [id number] THIS REPORT FOR: cc: Michael Fox Timothy C. DO Smithson, David G. MD ~ DATE OF SERVICE: 05/04/2020 PROGRESS NOTE/OVERALL PLAN OF CARE SUBJECTIVE: The patient is seen back today. He is pleasant, in no obvious distress. Temperature 36.7, pulse 77, respirations 18, blood pressure 146/95. His notes that he has a better appetite. No focal calf swelling. He has bilateral heel protectors in place. Transfers are mod assist with gait, 14 feet mod assist with a front-wheeled walker. In occupational therapy, lower body dressing is dependent with upper body dressing, mod assist. He does have moderate cognitive deficits noted with severe memory. Agree with the documentation as noted today in the progress note. ASSESSMENT: 1. Idiopathic peripheral neuropathy. 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 3. History of severe spinal stenosis with lumbar radiculopathy. 4. Bilateral foot cellulitis with bilateral toe wounds. 5. Acute renal insufficiency superimposed on chronic kidney disease. 6. DTI right heel, DTI sacrum. 7. Stage 3 pressure ulcer, left heel. 8. Hypertension. 9. Constipation. PLAN: The overall plan of care is based on the preadmission screen and information garnered from therapy assessments. 1. Estimated length of stay is probably at least the next 14 days up to 21 days. 2. Medical prognosis is reasonably good. 3. Anticipated interventions includes the interdisciplinary acute inpatient rehabilitation program. 4. Anticipated functional outcomes would be for the patient to improve his functional mobility with transfers, gait, ADLs, so that he can hopefully return back to his prior living situation with his . 5. Discharge destination would be back home with his . There also is a grandson and the grandson's friend that are living with them. 6. Expected therapy by discipline includes PT and OT 3 hrs per day each five days a week throughout the duration of the acute inpatient rehabilitation stay. ADDENDUM: The patient's prognosis for significant practical improvement within a reasonable period of time appears good. Given the patient's complex medical [facility] [address] [place] [address] REHAB UNIT PLAN OF CARE Name: SHANIA LEE Room #: 511-P [facility] IN .R.#: [id number] Admission: 05/02/20 Attend Phys: Narayan Kulkarni MD Discharge: Date of : 39 Report #: [id number] condition and risk of further medical complication, rehabilitation services could not be safely provided at a lower level of care such as a assisted facility. <ELECTRONICALLY SIGNED> By: Narayan Kulkarni MD 05/08/20 1505 1351 1618 Narayan Kulkarni MD /JESSICA
--- NOTE | 2020-05-08 16:23 | NUR ---
FAXED REFERRAL FOR RESUMPTION OF CARE AT [facility] SPOKE WITH DIMAS IN INTAKE SHE CAN ACCEPT AT [facility] 05/17.
[2020-05-08 16:27] VITALS: BP 144/69
--- NOTE | 2020-05-08 17:44 | NUR ---
PT ALERT AND ORIENTED TIMES FOUR WITH PERIODS OF CONFUSION. VSS. PT C/O PAIN. PRN PAIN MEDICATIONS GIVEN WITH SOME RELEIF. PT TOLERATES MEDS AND MEALS. PT WORKED WELL WITH PT/OT. DRESSING TO BLE CHANGED. PT AT BEDSIDE. PT PROGRESSING TOWRADS FOR POC GOALS.
[2020-05-08 19:29] VITALS: BP 137/57
--- NOTE | 2020-05-09 03:36 | NUR ---
ASSUMED CARE OF PT AT SHIFT CHANGE. PT IS AOX4 AND LETS NEEDS BE KNOWN. FALL PRECAUTION IN PLACE. LAP AND HEEL PROTECTORS IN PLACE. ASSESSMENT CHARTED. PT REPORTED SOME BLE PAIN AND PRN PAIN MEDS WERE PROVIDED. PT DENIES NAUSEA OR SOA. PT REFUSED FSBG AND TURNS. PT WANTED TO BE LEFT ALONE FOR THE NIGHT. VSS AND NO S/S OF ACUTE DISTRES. WILL CONTINUE TO MONITOR FOR CHANGES.
[2020-05-09 07:15] VITALS: BP 118/63
--- NOTE | 2020-05-09 18:16 | NUR ---
PT ALERT AND ORIENTED TIMES FOUR. VSS. PT C/O PAIN PRN PAIN MEDICATIONS GIVEN WITH SOME RELEIF. PT TOLERATES MEDS AND MEALS. BLE DRESSING CHANGED. PT WORKED WELL WITH PT/OT TODAY. PT AT BEDSIDE FOR MOST OF THE SHIFT. PT PROGRESSING TOWRADS POC GOALS.
[2020-05-09 19:20] VITALS: BP 121/70
--- NOTE | 2020-05-10 02:39 | NUR ---
PT ALERT AND ORIENTED X 4, FORGETFUL. DRESSINGS TO BOTH FEET C/D/I. PT INCONT OF URINE AND STOOL. PT C/O GENERALIZED PAIN. HYDROCODONE GIVEN AT HS. BENADRYL ALSO GIVEN AT HS PER PT REQUEST FOR SLEEP. PRAFO BOOTS ON. BED ALARM ON FOR SAFETY. PT APPEARS TO BE SLEEPING ON HOURLY ROUNDS.
[2020-05-10 08:21] VITALS: BP 157/84
--- NOTE | 2020-05-10 10:00 | NUR ---
ASSUMED CARE AT 0700 THIS MORNING. PT. IN BED, SITTING UP. HE IS PLEASANT AND COOPERATIVE WITH ASSESSMENT. ALERT & ORIENTED TIMES 4 WITH PERIODS OF CONFUSION. WAS GIVEN HYDROCODONE PRN FOR PAIN, BUT DENIED HE FELT BETTER AFTER TAKING IT. TOLERATES MEDS/MEALS. VSS. WILL CONTINUE TO MONITOR.
[2020-05-10 19:31] VITALS: BP 142/68
--- NOTE | 2020-05-10 22:00 | NUR ---
PATIENT ADAMANT ABOUT NOT BEING AWAKENED ALL NIGHT, INSISTS ON WEARING BRIEF OVERNIGHT, AND DOES NOT WANT TO TURN TO HIS SIDE AT ALL. COMPLAINS ABOUT BEING AWAKENED AT 0530 THIS MORNING AND THAT HE USUALLY DOES NOT GET UP UNTIL 0700. EXPLAINED TO PATIENT THAT HE WOULD BE BETTER OFF IF HE WERE DRY. RELUCTANTLY,, HE ALLOWED ME TO APPLY Z-GUARD AND MOISTURE BARRIER TO HIS SACRUM SINCE WE WERE GOING TO LEAVE HIM ALONE ALL NIGHT, DESPITE HIS COMPLAINT THAT IT HAD JUST BEEN DONE. ON THE OTHER HAND, PATIENT WAS HAPPY TO WEAR BILATERAL PRAFO BOOTS. CONTINUOUS LOW AIR LOSS THERAPY PUMP.
[2020-05-11 07:15] VITALS: BP 125/68
--- NOTE | 2020-05-11 09:29 | NUR ---
PT WAS SEVERELY INCONTINENT THIS MORNING FOLLOWING BREAKFAST, AND HAS (PER NURSING REPORT) BEEN REFUSING TO ALLOW THE [employer]YBE[employer] COOK TO CHANGE HIS LINENS THROUGHOUT THE NIGHT. DISCUSSED THIS WITH HIM AN ISSUE FOR HOME, AND PT AGREED TO "TRY" A CONDOM CATHETER IN THE NIGHT. THIS WAS COMMUNICATED TO THE PT'S PRIMARY RN
--- NOTE | 2020-05-11 10:32 | NUR ---
ASSUMED CARE AT 0700 TODAY. HE IS SITTING IN A W/C BESIDE HIS BED. HE IS COOPERATIVE WITH MEDS/MEALS. HE IS WORKING WELL WITH PT/OT. A&OX4. HIS FEET HAVE ZEROFORM/CURLEX/RICKEY WRAPS ON. HE HAD 1 BM TODAY. HE CONTINUES TO RECEIVE HYDROCODONE AND TYLENOL AROUND THE CLOCK PER HIS REQUEST FOR GENERALIZED PAIN. WILL CONTINUE TO MONITOR.
--- NOTE | 2020-05-11 10:59 | NUR ---
Nutrition followup: pt eating 50-100% of meals on regular diet and 100% of ensure supplements which he is requesting TID. Will change to ensure max to prevent excess calories. Undertands protein needs and wounds are improving. UBW reported as 240#, stable. 270# was error. pt status changed to low risk.
[2020-05-11 19:30] VITALS: BP 127/70
--- NOTE | 2020-05-11 21:00 | NUR ---
PATIENT OFFERED EXTERNAL CATHETER, EXPLAINED TO HIM THAT IT WOULD KEEP HIM DRY AND AVOID SACRAL BREAKDOWN. TEN MINUTE DISCUSSION WITH PATIENT, BUT ADAMANT REFUSAL CONTINUES. HE INSISTS THAT HIS THICKER BRIEF FROM HOME (BRAND NAME ROBERTO) DO NOT LEAK AND THEREFORE HE IS NOT INCONTINENT. HE REFUSES TO REMOVE BRIEF, REFUSES TO TURN ON HIS SIDE, AND REFUSES THE EXTERNAL CATHETER. I HAVE OFFERED TO ASSIST HIM USING URINAL, WHICH HE ALSO DECLINES, AND I HAVE NOT SEEN HIM ATTEMPT TO USE ONE. STATES THAT THIS IS WHAT HE DOES AT HOME. CONTINUES TO DECLINE FINGERSICKS, STATING I'M NOT DIABETIC AND THIS IS NOT WHAT I'M HERE FOR. HE DOES APPRECIATE HIS PRAFO BOOTS TO OFFLOAD HEELS. HE REFUSES TO LET US CHECK HIM FOR INCONTINENCE AND DOES NOT WANT TO BE AWAKENED FOR ANYTHING. PRN PAIN MED AND BENADRYL GIVEN, PREFERS TO TAKE ONLY ONE SENNEKOT AND REFUSES MIRALAX AT THIS TIME. PAYS CLOSE ATTENTION TO HIS MEDS AND KNOWS EXACTLY WHAT HE GETS WITHOUT HAVING THEM POINTED OUT OR EXPLAINED TO HIM.
[2020-05-12 08:00] VITALS: BP 120/57
--- NOTE | 2020-05-12 10:41 | NUR ---
ASSUMED CARE AT 0700. PATIENT IS ALERT AND ORIENTED X4. PATIENT LUGO'S, GENETIC SCIENTIST ARE EQUAL. LUNGS ARE CLEAR. PATIENT HAS L.E. CELLULITIS. PATIENT IS INCONTINENT OF URINE AND STOOL IN HIS BRIEF. FALL AND SAFETY PROTOCOLS IN PLACE. C/O PAIN IN HIS KNEES. MEDICATED WITH PRN PAIN MEDS . CONTINUES TO PROGRESS SLOWLY TOWARDS D/C GOALS. WILL CONTINUE TO MONITER.
[2020-05-12 19:43] VITALS: BP 119/70
--- NOTE | 2020-05-12 21:42 | NUR ---
PT REFUSED ACCU CHECK AND INSISTED ON HAVING A BRIEF. HE WAS VERY UPSET AND SAYING THAT HE WANTS TO GO HOME BEFORE THURSDAY. PROVIDED MUCH EMOTIONAL SUPPORT.
--- NOTE | 2020-05-12 23:26 | NUR ---
PT ASSESSMENT COMPLETED AND VSS. MEDS GIVEN ORDERED AND WELL TOLERATED. PRN PAIN AND SLEEP MEDICATION WORKING WELL. PT IS REFUSING TO BE BOTHERED DURING THE NIGHT. ASST WITH REPOSITION FOR COMFORT. ZGUARD APPLIED TO HEALING PRESSURE WOUND ON BUTTOCK. PT REFUSED TO HAVE HIS BRIEF REMOVED BEFORE BED. PT REFUSED ACCU CHECK. SLEEPING WELL AT THIS TIME. WILL CONTINUE TO MONITOR FREQUENTLY.
[2020-05-13 07:15] VITALS: BP 106/87
--- NOTE | 2020-05-13 14:30 | NUR ---
ASSUMED CARE AT 0700 TODAY. PT. SITTING IN HIS BED TO EAT BREAKFAST. HE IS PLEASANT AND COOPERATIVE WITH MEDS/ASSESSMENT/MEALS. HE IS ROOM AIR, HAD A BM TODAY, REFUSES [place] CATHETER AT [facility] BUT HAS BRIEF ON. HE GETS ZGUARD TO HIS BOTTOCKS TO REDENNED AREA. HAS ASKED FOR HYDROCODONE X1 TODAY, BUT RATES HIS PAIN 3 OR 4. AT BEDSIDE MOST OF THE DAY. WILL CONTINUE TO MONITOR.
[2020-05-13 20:16] VITALS: BP 132/67
--- NOTE | 2020-05-13 23:12 | NUR ---
PT ASSESSMENT COMPLETED AND VSS. MEDS GIVEN ORDERED AND WELL TOLERATED. FALL PRECAUTIONS IN PLACE. PT INC OF LARGE AMOUNT OF URINE AND BROWN BOWEL MOVEMENT. SOFT BM. PT REFUSED ACCU CHECK/TURNING WITH PILLOWS/AND BRIEF REMOVAL AT HS. SLEEP AND PAIN MEDICATION WORKING WELL. SLEEPING WELL AT THIS TIME. WILL CONTINUE TO MONTIOR FREUQENTLY.
[2020-05-14 07:15] VITALS: BP 127/77
--- NOTE | 2020-05-14 18:00 | NUR ---
PATIENT C/O INADEQUATE OAIN RELIEF EARLIER IN THE DAY AND NOTED HIS CONCERNS TO DR. SAUNDERS. ORDERS RECEIVED TO INCREASE FREQUENCY OF HYDROCODONE TO Q 4 H PRN, AND FURTHER REDUCE THE USE OF TYLENOL TO DECREASE THE RISK OF ACETAMINOPHEN OVERDOSE, PT STATED THAT THE TYLENOL DID NOT REALLY HELP THE PAIN AT ALL. DRESSINGS WERE CHANGED BY NADEEM KELLY AND IT WAS NOTED TO THIS NURSE THAT WOUNDS CONTINUE TO HEAL WELL. PT'S WAS AT BEDSIDE MUCH OF THE AFTERNOON, AND HE WAS UP IN THE WC. EDUCATED PT REGARDING PRESSURE RELIEF WHILE IN THE WC Q 30 MINUTES.
[2020-05-14 19:19] VITALS: BP 143/71
--- NOTE | 2020-05-15 04:55 | NUR ---
ASSESSMENT: PT REMAIN ALERT AND ORIENT TIMES THREE, FORGETFUL AT TIMES. REQUEST TO NOT BE DISTURBED DURING THE NIGHT, UNLESS HE CALLS OUT FOR ASSISTANCE. DOES NOT WANT TURNS, NOR TO BE CLEANED UP. PT IS INCONTINENT TO B&B. UP WITH 1 ASSISTANCE. PRN PAIN MEDICATION GIVEN WITH PARTIAL RELIEF PER PT. DRESSING CHANGED PER DAY SHIFT ON FEET WOUNDS/TOES. SLOW PROGRESS TOWARDS DC GOALS, WILL CONTINUE TO MONITOR.
[2020-05-15 08:40] VITALS: BP 130/76
--- NOTE | 2020-05-15 12:59 | NUR ---
team meeting, reccommendation: contact giuliano transfer and gait 70 ft, fww, cane at home for stairs. worked with therapy today. kandy marquez ( pt, ot, nrusing). dc on 05/17
--- NOTE | 2020-05-15 19:29 | NUR ---
A/O, calm and cooperative, complains of pain in legs, pain medicaiton given and worked. walked in the [address] way and exercised, tolerated well. when the staff offered to change the dressing, the patient refused, claiming," some doctor has changed the dressing."
[2020-05-15 19:47] VITALS: BP 146/53
--- NOTE | 2020-05-16 01:32 | NUR ---
Assumed pt care at 1900. A/OX4 w/forgetfulness but able to make needs known. Up in DR at beginning of shift. VSS.C/o pain allover medicated per EMAR with relief reported. Pt declined to be woken up at night to check for incontinence or to be repositioned. Incontinent of bladder. Dsgs to BLE C/D/I,Heel protectors placed at HS w/o problems. Fall precautions in place,resting quietly at this time.Will continue to monitor pt.
[2020-05-16 08:00] VITALS: BP 136/64
--- NOTE | 2020-05-16 13:29 | NUR ---
PATIENT WAS IN BED AWAKE WHEN CARE ASSUMED, ALERT, AND ORIENTED X 3-4, ABLE TO VOICE NEED. MORNING MEDICATION GIVEN ORDERED, WELL TOLERATED. PATIENT IS EATING MEALS, AND DRINKING FLUID FAIRLY WELL. BLE REMAIN WITH 2+ PITTING EDEMA, PATIENT WORKING WITH THERAPY, WALKED SHORT DISTANCE IN [address]. PRN HYDROCODONE, AND TYLENOL GIVEN X 1 EACH FOR GENERALIZED PAIN OF 5/10 EACH TIME, PAIN DECREASED TO 3/10 EACH TIME REASSESSED. THIS NURSE OFFERED TO LOOK AT PATIENT WOUND, AND CHANGE DRESSING, PATIENT STATES "THE WOUND CARE PEOPLE LOOKED AT IT, AND CHANGED DRESSING YESTERDAY". WILL APPROACH PATIENT AGAIN FOR WOUND DRESSING CHANGE. INCONTINENT CARE PROVIDED PER STAFF, HAD LARGE SOFT BOWEL MOVEMENT THIS MORNING. NO SIGN OF ACUTE DISTRESS NOTED AT THIS TIME, PERSONAL ITEMS IN PLACE, CALL LIGHT IN REACH, WILL MONITOR FOR SAFETY.
[2020-05-16 19:00] VITALS: BP 125/75
--- NOTE | 2020-05-16 23:16 | NUR ---
ASSESSED AT START OF SHIFT. PT SITTING IN WHEELCHAIR C/O PAIN. HYDROCODONE GIVEN. PT REQUESTED BENADRYL TONIGHT.EVENING PILLS GIVEN WHOLE WITH WATER AND PT HA IT WELL. PT HAD A SOFT BM. UP WITH ASSISTX1 WITH A WALKER AND GAITBELT. PT RESTING WELL IN BED NO FURTHER SIGNS OF DISCOMFORT WILL CONT TO MONITOR. ANTICIPATING D/C TOMORROW.
[2020-05-17 08:00] VITALS: BP 116/60
[2020-05-17] MEDS ORDERED: BAYER CHEWABLE81 MG PO (08:44)
[2020-05-17] MEDS ORDERED: MIRALAX17 GM PO (08:44)
[2020-05-17] MEDS ORDERED: SENNA8.6 MG PO (08:44)
[2020-05-17] MEDS ORDERED: FOLIC ACID1 MG PO (08:44)
[2020-05-17 08:58] VITALS: BP 144/69
[2020-05-17 10:52] VITALS: BP 144/69
[2020-05-17] MEDS ORDERED: VIBRAMYCIN 100100 MG PO (11:21)
[2020-05-17 11:22] VITALS: BP 144/69
--- NOTE | 2020-05-17 13:53 | NUR ---
Alert and orientated X4. Calm, cooperative and irritable. Able to stand with assistance. Breath sounds clear. Reg HR auscultated. Color pink with brisk capillary refill and palpable peripheral pulses. +2 edema in R foot. Brief saturated with yellow urine. Active bowel sounds over large, soft, rounded abdomen. Buttocks reddened, cleaned and zinc oxide applied. Wounds to feet cleaned and dressed per orders, watched so she could do drsg change at home. 1120 Discharge instructions given, declined to listen. Prescription given. Discharged per WC with and belongings escorted to ER entrance by RECORDIST CHIEF. No s/o distress.
--- NOTE | 2020-05-17 16:58 | NUR ---
PT DISCHARGING TODAY TO HOME WITH RESUMPTION OF CARE WITH [facility] FAXED DC ORDERS/SUMMARY RECEIVED CONFIRMATION AND THEY WILL ARRANGE VISITS WITH PT.
== END 2020-05-17 11:20 | disposition home health service (06) | DRG 40 ==
PROVIDERS: Internal Medicine; Nurse Practitioner; Nurse Practitioner Family; ADMIT Physical Medicine & Rehabilitation; ATTEND Physical Medicine & Rehabilitation
PROC: 0JBR0ZZ Excision of Left Foot Subcutaneous Tissue and Fascia, Open Approach (ICD-10-PCS; principal; 2020-05-03)
PROC: 0JBQ0ZZ Excision of Right Foot Subcutaneous Tissue and Fascia, Open Approach (ICD-10-PCS; principal; 2020-05-03)
DX: G72.81 Critical illness myopathy (principal); L89.623 Pressure ulcer of left heel, stage 3; L89.153 Pressure ulcer of sacral region, stage 3; L03.116 Cellulitis of left lower limb; L03.115 Cellulitis of right lower limb; N17.9 Acute kidney failure, unspecified; E44.1 Mild protein-calorie malnutrition; G60.9 Hereditary and idiopathic neuropathy, unspecified; R53.81 Other malaise; G72.89 Other specified myopathies; E11.621 Type 2 diabetes mellitus with foot ulcer; L97.529 Non-pressure chronic ulcer of other part of left foot with unspecified severity; L97.519 Non-pressure chronic ulcer of other part of right foot with unspecified severity; S90.31XA Contusion of right foot, initial encounter; X58.XXXA Exposure to other specified factors, initial encounter; E11.22 Type 2 diabetes mellitus with diabetic chronic kidney disease; Z96.643 Presence of artificial hip joint, bilateral; E11.42 Type 2 diabetes mellitus with diabetic polyneuropathy; I12.9 Hypertensive chronic kidney disease with stage 1 through stage 4 chronic kidney disease, or unspecified chronic kidney disease; K59.00 Constipation, unspecified; R41.9 Unspecified symptoms and signs involving cognitive functions and awareness; N18.30 Chronic kidney disease, stage 3 unspecified; D63.8 Anemia in other chronic diseases classified elsewhere; M48.061 Spinal stenosis, lumbar region without neurogenic claudication; M54.16 Radiculopathy, lumbar region; F03.90 Unspecified dementia, unspecified severity, without behavioral disturbance, psychotic disturbance, mood disturbance, and anxiety; Y93.89 Activity, other specified; Y92.89 Other specified places as the place of occurrence of the external cause; Y99.8 Other external cause status; Z68.32 Body mass index [BMI] 32.0-32.9, adult; Z86.16 Personal history of COVID-19
CPT/HCPCS: 10112

== ENCOUNTER → 2020-05-31 | Outpatient (CLI) | payer OTHER ==
[~2020-05-31] VITALS: Ht 188 cm; Wt 108.9 kg
[~2020-05-31] MED LIST changes: +BAYER CHEWABLE81 MG PO; +CEFUROXIME250 MG PO; +DOXYCYCLINE HY100 M3 PO; +FOLIC ACID1 MG PO; +MIRALAX17 GM PO; +NORVASC5 MG PO; +SENNA8.6 MG PO; +VIBRAMYCIN 100100 MG PO
[2020-05-31 11:05] VITALS: BP 117/74
--- NOTE | 2020-05-31 11:18 | NUR ---
Pain Clinic Assessment: 1. History of Osteoarthritis: SPINE HIPS History of Rheumatoid Arthritis: Not Applicable 2. Height: 6 ft. 2 in. 188.0 cm. Weight: 240.0 lb. oz. 108.864 kg. Patient's BMI: 30.8 3. Vital Signs: BP: 117/74 Pulse: 70 Resp: 16 Temp: 02 Sat: 96 ECG Mon: 4. Pain Intensity: 4 5. Fall Risk: Dizziness: N Needs help standing or walking: Y Fallen in the last 3 months: N Fall risk comments: 6. Patient on Blood Thinner: None 7. History of Hypertension: Y 8. Opioid Therapy greater than 6 weeks: Y Opiate Contract Signed: 05/29/16 9. Risk Assessment Tool Provided: *LOW RISK-3 10. Functional Assessment Tool: 11. Recreational Drug Use: Never Drug Type: Tobacco Use: Never Smoker Tobacco Type: Amount or Packs/day: How Many Years: Alcohol Use: Yes Frequency: Daily Quant: 2
== END ==
LOC: PAIN 10:22
PROVIDERS: ATTEND Clinical Nurse Specialist Adult Health
DX: M47.27 Other spondylosis with radiculopathy, lumbosacral region (principal); M96.1 Postlaminectomy syndrome, not elsewhere classified; G62.9 Polyneuropathy, unspecified; F11.20 Opioid dependence, uncomplicated; Z79.899 Other long term (current) drug therapy

== ENCOUNTER → 2020-06-11 | Outpatient (CLI) | payer OTHER | LOC: HYPER 13:35 | PROVIDERS: ATTEND Emergency Medicine | DX: L97.522 Non-pressure chronic ulcer of other part of left foot with fat layer exposed (principal); L97.512 Non-pressure chronic ulcer of other part of right foot with fat layer exposed; L97.412 Non-pressure chronic ulcer of right heel and midfoot with fat layer exposed; L97.422 Non-pressure chronic ulcer of left heel and midfoot with fat layer exposed; S81.802A Unspecified open wound, left lower leg, initial encounter; B35.1 Tinea unguium; G60.3 Idiopathic progressive neuropathy; M79.674 Pain in right toe(s); M20.42 Other hammer toe(s) (acquired), left foot; M20.41 Other hammer toe(s) (acquired), right foot; M48.00 Spinal stenosis, site unspecified; K21.9 Gastro-esophageal reflux disease without esophagitis; G64 Other disorders of peripheral nervous system; I10 Essential (primary) hypertension; Z79.82 Long term (current) use of aspirin; Z87.891 Personal history of nicotine dependence; Z79.899 Other long term (current) drug therapy; X58.XXXA Exposure to other specified factors, initial encounter; Y93.89 Activity, other specified; Y92.89 Other specified places as the place of occurrence of the external cause; Y99.8 Other external cause status ==

== ENCOUNTER 2020-08-13 19:32 | Inpatient (IN) | payer OTHER ==
[~2020-08-13] VITALS: Ht 190.5 cm; Wt 120.2 kg
--- NOTE | ~2020-08-13 | EMS ---
[facility] [address] [place] [address] EMS Patient Care Report Name: SHANIA LEE Room #: REG SENA Thorpe#: [id number] Admission: 08/13/20 Attend Phys: Discharge: Date of : 38 Report #: [id number] THIS REPORT FOR: //name// Report Transmitted: 08/13/2020 20:03 EMS Care Summary [facility] Incident [id number] @ 08/13/2020 19:04 Incident Location [address] [place] [address] [place] [address] Patient SHANIA LEE Male, 80 Years 1940 Patient Address [address] [place] [address] [place] [address] Patient History Hypertension (HTN),Gastro-Esophageal Reflux Disease (GERD),Chronic Pain, Patient Allergies No known allergies, Patient Medications Miralax, Dulcolax, Metoprolol, Levofloxacin, Senna, [place], Aspirin, Omeprazole, Chief Complaint CONSTIPATION Disposition Transported No Lights/[place] Dis[place] Reason Abdominal Pain/Problems Transported To [facility] Narrative M1134 IS DISPATCHED AND RESPONDS NOTED. UPON ARRIVAL AT SCENE M1134 IS DIRECTED TO LIVING ROOM FOR PT. PT'S STATES THAT PT HAS BEEN SEVERELY CONSTIPATED FOR APPROXIMATELY 2 WEEKS WITH [facility] [address] [place] [address] EMS Patient Care Report Name: SHANIA LEE Room #: REG Ila#: [id number] Admission: 08/13/20 Attend Phys: Discharge: Date of : 38 Report #: [id number] LAST BOWEL MOVEMENT OF ANY KIND 10 DAYS AGO. STATES THAT PT HAS TRIED "EVERYTHING POSSIBLE ORALLY" FOR CONSTIPATION WITHOUT SUCCESS. UPON PT CONTACT PT IS FOUND SEATED IN RECLINER, ALERT, TRACKING, SHOWING NO SIGNS OF DISTRESS OR OBVIOUS TRAUMA. PT C/O DISCOMFORT RELATED TO CONSTIPATION AND STATES HE BELEIVES HE HAS AN IMPACTION. PT DENIES OTHER PAIN, SOA, NVD OR OTHER UNLISTED COMPLAINTS. PT REQUESTS TRANSPORT TO [facility]. PT MOVED TO COT, SECURED WITH ALL STRAPS, MOVED TO AMBULANCE WITHOUT INCIDENT. PT MONITORED [facility]. RADIO REPORT CALLED [facility]. UPON ARRIVAL AT [facility] PT MOVED TO ER ROOM 10, PLACED IN BED WITH RAILS UP. PT CARE TRANSFERRED TO BOWLING BALL FINISHER WITH VERBAL REPORT. Initial Vitals @19:27P: 107,R: 18,BP: 151/53,Pain: 2/10,GCS: 15,SpO2: 94,Revised Trauma: 12, @19:22P: 108,R: 18,BP: 149/71,Pain: 2/10,GCS: 15,Temp: 98F,SpO2: 95,Revised Trauma: 12, Assessments @19:15MENTAL:Person Oriented,Time Oriented,Place Oriented,Event Oriented,SKIN:HEENT:Eyes: Left Pupil: 4-mm,LUNG SOUNDS:General: Absent Bowel Sounds,General: Other,Left Upper: Distension,Left Upper: Tenderness,Right Upper: Tenderness,Left Lower: Distension,Left Lower: Tenderness,Right Lower: Distension,Right Lower: Tenderness,ABDOMEN:General: Absent Bowel Sounds,General: Other,Left Upper: Distension,Left Upper: Tenderness,Right Upper: Tenderness,Left Lower: Distension,Left Lower: Tenderness,Right Lower: Distension,Right Lower: Tenderness,PELVIS//GI:EXTREMITIES:Capillary Refill: Right Upper: < 2 Sec,Capillary Refill: Left Upper: < 2 Sec,PULSE:Radial: 2+ Normal,NEURO:Tremors, Impression Constipation Procedures @19:15ALS AssessmentResponse: UnchangedSucceeded@19:25Surgical Mask on PatientResponse: Unchanged Timeline 19:02,Call Received 19:02,Psap Call 19:04,Dispatched 19:05,En Route 19:13,On Scene 19:14,At Patient [address] [address] EMS Patient Care Report Name: JESUSSHANIA Avila Room #: REG Ila#: [id number] Admission: 08/13/20 Attend Phys: Discharge: Date of : 38 Report #: [id number] 19:15,ALS Assessment,Response: UnchangedSucceeded, 19:21,Depart Scene 19:22,BP: 149/71 M,PULSE: 108,RR: 18 R,SPO2: 95 Ox,ETCO2: ,BG: ,PAIN: 2,GCS: 15, 19:25,Surgical Mask on Patient,Response: Unchanged 19:27,BP: 151/53 M,PULSE: 107,RR: 18 R,SPO2: 94 Ox,ETCO2: ,BG: ,PAIN: 2,GCS: 15, 19:28,At Destination 19:30,Transfer Patient 19:45,Call Closed Disclaimer v1.1 Copyright 202 [employer] This EMS Care Summary contains data elements from the applicable legal record (which may be displayed differently). It is designed to provide pertinent information for the following purposes: continuity of care, clinical quality, and state data reporting. The complete legal record is available to ED staff and administrators of the receiving hospital in [employer]'s Patient Tracker. All data is provided "as is."
[2020-08-13 19:34] VITALS: BP 160/80
[2020-08-13 21:00] LABS: HEMATOCRIT 37.8 % (42.0-52.0); HEMOGLOBIN 12.5 gm/dL (14.0-18.0); MCH 33.5 pg (26.0-34.0); MCHC 33.2 g/dL (28.0-37.0); MCV 100.8 fL (80.0-100.0); PLATELET COUNT 148 thou/uL (150-400); RBC 3.75 mil/uL (4.50-6.00); RDW 15.4 % (10.5-14.5); WBC 7.2 thou/uL (4.0-11.0)
[2020-08-13 21:13] LABS: ANION GAP 11 mmol/L (7-16); BUN 14 mg/dL (7-18); CHLORIDE 102 mmol/L (98-107); CO2 26 mmol/L (21-32); CREATININE 1.4 mg/dL (0.7-1.3); GLUCOSE 111 mg/dL (74-106); POTASSIUM 3.5 mmol/L (3.5-5.1); SODIUM 139 mmol/L (136-145)
[2020-08-13 21:24] LABS: ALBUMIN 2.6 g/dL (3.4-5.0); LIPASE 122 U/L (73-393); SGOT 24 U/L (15-37); SGPT 17 U/L (30-65); TOTAL BILIRUBIN 0.7 mg/dL (0.2-1.0); TROPONIN-I <0.06 ng/mL (<0.06)
[2020-08-13 21:37] LABS: ABSOLUTE NEUTROPHILS 5.5 thou/uL (1.4-8.2); MACROCYTES 1+; PLATELET ESTIMATE DECREASED
[2020-08-13 21:38] LABS: ANISOCYTOSIS 1+; POIKILOCYTOSIS 1+
[2020-08-13] MEDS ORDERED: LEVOFLOXACIN500 MG PO (22:38)
[2020-08-13] MEDS ORDERED: GENTAMICIN SULF30 GM TOP (22:39)
[2020-08-13] MEDS ORDERED: OMEPRAZOLE20 M1 PO (22:39)
[2020-08-13 22:51] VITALS: BP 161/80
[2020-08-13 23:26] VITALS: BP 155/97
[2020-08-13] MEDS ORDERED: SLEEP AID50 MG PO (23:27)
--- NOTE | 2020-08-14 01:36 | NUR ---
ADMITTED TO THE UNIT AT APPROXIMATELY 2330. PT IS A/O X4 BUT IS VERY FORGETFUL. UP WITH MAX ASSIST AND IS W/C BOUND. C/O CONSTIPATION. REFUSED THE SUPPOSITORY STATING HE HAD TWO LARGE BM IN THE EMERGENCY DEPARTMENT. C/O PAIN IN ABDOMEN AND REQUESTED A PRN BENEDRYL. PRN PAIN MEDICATION GIVEN DIRECTED. VSS. AFEBRILE. WILL CONTINUE TO MONITOR
[2020-08-14 04:17] VITALS: BP 148/83
--- NOTE | 2020-08-14 07:25 | EKG ---
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: ISAEL : 1940 Requested By: Narayan Bean Order Number: [id number] MD: Rodney Stewart Measurements Intervals [place] Rate: 101 P: 28 NM: 173 QRS: -23 QRSD: 106 T: 38 QT: 364 QTc: 472 Interpretive Statements Sinus tachycardia Probable left atrial enlargement Borderline left axis deviation Abnormal R-wave progression, late transition No previous ECG available for comparison Electronically Signed On 08-14-2020 7:25:29 CDT by Rodney Stewart [email or web address] <ELECTRONICALLY SIGNED> By: Rodney Stewart MD, [facility] 08/14/20724 1953 52 Rodney Stewart MD, FACC /EPI
[2020-08-14 07:50] VITALS: BP 156/104
--- NOTE | 2020-08-14 10:40 | NUR ---
Assess due to notification of bilateral wounds-wound care consult pending. Pt has been admitted previously for wound treatment. This admission is for constipation. Started on bowel regimin. Wts stable, obese, BMI 33. Will add ensure max as pt usually drinks this supplement. Push water intake and high fiber foods. Low nutrition risk
[2020-08-14 13:51] VITALS: BP 156/104
--- NOTE | 2020-08-14 14:00 | NUR ---
ASSESSED PT. AT 7:00 AM. PT ALERT AND ORIENTED X4. C/O PAIN MEDS DID GIVE RELIEF. INCONTINENT OG B&B. PERICARE WITH EACH INCONTINENT EPISODE.BED IN LOW POSITION FALL PRECAUTIONS IN PLACE. PT FEET ARE DRESSING WITH GAUZE AND KERLIX BILATERALLY DUE TO HEEL AND TOE WOUNDS. DRESSINGS ARE CLEAN DRY AND INTACT. PT HAS NEW WOUNDS ON OINNER GLUTEAL FOLDS. CONSTANTLY HAVING SOFT BM'S. CALL LIGHT IS WITHIN REACH. WILL CONTINUE TO MONITOR THIS SHIFT,
--- NOTE | 2020-08-14 14:49 | NUR ---
ASSESSMENT: CM REVIEWED CHART AND MET WITH PATIENT AND HIS AT THE BEDSIDE. PT WAS ADMITTED DUE TO CONSTIPATION. PT REPORTS LIVING IN A HOUSE WITH HIS . PT HAS ABOUT TWO STEPS TO GET INTO THE HOME AND NO STEPS HE HAS TO USE ONCE INSIDE. PER PATIENT HAS BEEN NONAMBULATORY FOR ABOUT 3 WEEKS DUE TO FOOT ULCERS AND HAS BEEN USING HIS WHEELCHAIR. PT HAS A WHEELCHAIR, WALKER, AND CANE. PT WAS RECENTLY DISCHARGED FROM [facility] IN MAY AND REPORTS HE RECENTLY HAD [facility] BUT NO LONGER IS IN SERVICES WITH THEM. AND PT PREFER TO HAVE HH THROUGH THEM AGAIN AT DISCHARGE. CM FAXED REFERRAL TO [facility]. REPORTS THAT PATIENT HAS BEEN SEEING WOUNDCARE ARE OUTPATIENT HERE. PER ATTENDING IF PATIENT PROGRESSES HE MAY BESTABLE FOR DISCHARGE TOMORROW. CM WILL CONTINUE TO FOLLOW TO ASSIST NEEDED.
[2020-08-14 16:41] VITALS: BP 127/75
[2020-08-14 19:46] VITALS: BP 127/64
[2020-08-14 20:13] VITALS: BP 118/62
--- NOTE | 2020-08-15 03:11 | NUR ---
PT IS A/O X4 WITH SOME NOTED FORGETFULNESS. IS ON BEDREST AND REQUIRES FREQUENT CHECKS. INCONTINENT OF BOWEL AND BLADDER. DRSGS TO WOUNDS ARE C/D/I. ZGUARD APPLIED TO BUTTOCKS. C/O NAUSEA. PRN NAUSEA MEDICATION GIVEN DIRECTED. C/O SOB WITH EXERTION. O2 LEVEL WNL. C/O ABDOMINAL PAIN. PRN PAIN MEDICATION GIVEN DIRECTED. FALL PRECAUTIONS IN PLACE, CALL LIGHT IS WITHIN REACH. WILL CONTINUE TO MONITOR.
[2020-08-15 04:43] VITALS: BP 152/100
[2020-08-15 07:08] LABS: HEMATOCRIT 36.6 % (42.0-52.0); HEMOGLOBIN 11.9 gm/dL (14.0-18.0); MCH 32.9 pg (26.0-34.0); MCHC 32.4 g/dL (28.0-37.0); MCV 101.4 fL (80.0-100.0); RBC 3.62 mil/uL (4.50-6.00); RDW 15.2 % (10.5-14.5); WBC 5.7 thou/uL (4.0-11.0)
[2020-08-15 07:37] VITALS: BP 154/93
--- NOTE | 2020-08-15 10:10 | NUR ---
Assumed care of pt at 0700. Pt a&ox4. Abdomen distended. Soft to the touch. Pt request GI consult. Provider notified and new order noted. IVF infusing. Dressings changed. Up to the chair with physical therapy. Call light within reach. Fall precautions in place. Will continue to monitor.
--- NOTE | 2020-08-15 14:22 | NUR ---
ON-GOING ASSESSMENT: CM REVIEWED CHART. GI HAS BEEN CONSULTED AND SEEING PATIENT HE STILL REMAINS CONSTIPATED. PT MAY NEED ENDOSCOPY AT SOME POINT. CM NOTIFIED SLOAN AT [facility] THAT PATIENT WILL REMAIN IN HOSPITAL OVER NIGHT. CM WILL CONTINUE TO FOLLOW. PLANS TO DISCHARGE HOME WITH [facility] ONCE MEDICALLY STABLE.
[2020-08-15 15:42] VITALS: BP 151/88
[2020-08-15 20:00] VITALS: BP 130/78
--- NOTE | 2020-08-16 03:33 | NUR ---
ASSESSED AT START OF SHIFT 1900. PT RESTING IN BED. C/O GAS IN ABDOMEN. ONCALL FEED MIXER HELPER NOTIFIED AND SIMETHICONE GIVEN. PT EXPRESSED RELIEF. HAD A SOFT BROWN BM THIS SHIFT PERICARE PROVIDED AND CREAM APPLIED. EVENING MEDS GIVEN AND PT HA IT WELL. HYDROCODONE GIVEN FOR BACK PAIN. PT INCONTINENT OF BOWEL AND BLADDER. FALL PREC IN PLACE AND CALL LIGHT AT REACH WILL CONT TO MONITOR.
[2020-08-16 04:05] VITALS: BP 142/87
[2020-08-16 08:03] VITALS: BP 146/82
--- NOTE | 2020-08-16 09:00 | HC ---
[facility] [place] [address] CONSULTATION Name: SHANIA LEE Room #: 438-P [facility] IN M.R.#: [id number] Admission: 08/13/20 Attend Phys: Jorge Sousa MD Discharge: Date of : 39 Report #: [id number] THIS REPORT FOR: cc: Michael Fox Timothy C. DO Althoff, Jeffrey R. MD ~ DOC #: [id number] Pravin Dawson MD DATE OF SERVICE: 08/14/2020 CHIEF COMPLAINT: Gluteal and lower extremity ulcerations. HISTORY OF PRESENT ILLNESS: This is an 80-year-old male patient with whom we are familiar with a history of diabetic ulcers to the lower extremities as well as a sacral gluteal ulcerations. He is admitted to the hospital with some abdominal discomfort. We have been asked to see him with regard to wound care. PAST MEDICAL HISTORY: Positive for hypertension, nondiabetic peripheral neuropathy, recent COVID-19 infection, bilateral lower extremity ulcerations, history of peripheral vascular disease. ALLERGIES: No known drug allergies. MEDICATIONS: Include hydrocodone, aspirin, senna, folic acid, omeprazole, Levaquin, metoprolol. SOCIAL HISTORY: He is . Denies tobacco use. Occasional use of alcohol. REVIEW OF SYSTEMS: CONSTITUTIONAL: The patient denies fever, chills or weight loss. NEUROLOGICAL: The patient denies focal weakness, tingling. EYES: The patient denies visual changes, redness or drainage. ENT: The patient denies earache, nasal drainage or throat. CARDIOVASCULAR: Denies chest pain, palpitations, diaphoresis. PULMONARY: Denies cough or shortness of breath. GASTROINTESTINAL: The patient denies nausea or abdominal pain. ORTHOPEDIC: The patient does complain of ulcerations to the lower extremities, also notes gluteal ulceration. Others systems in a 14-point review of systems are negative. PHYSICAL EXAMINATION: VITAL SIGNS: At this time include temperature 36.8, pulse 97, respiration 16, blood pressure 156/104. GENERAL: This is a chronically ill-appearing male patient who appears to be in minimal distress. HEENT: Head is normocephalic. Nose and throat are clear. [facility] [address] [place] [address] CONSULTATION Name: SHANIA LEE Room #: 438-P [facility] IN [facility].#: [id number] Admission: 08/13/20 Attend Phys: Jorge Sousa MD Discharge: Date of : 39 Report #: [id number] NECK: Supple. LUNGS: Clear. HEART: Regular. ABDOMEN: Soft. Bowel sounds are present. SKIN: Sacral gluteal region demonstrates stage III pressure ulcerations to the buttocks bilaterally. These are shallow with no evidence of infection. LOWER EXTREMITIES: Demonstrate neuropathic type ulcerations to the bilateral great toes and bilateral second toes as well as the interdigital webspace between the first and second toes on the right foot. LABORATORY DATA: Sodium 139, potassium 3.5, chloride 102, CO2 26, BUN 14, creatinine 1.4, glucose of 49. Albumin is 2.6. White blood cell count 7.2 with a hemoglobin of 12.5. CLINICAL IMPRESSION: 1. Neuropathic ulcerations to bilateral great toes and second toes. 2. Interdigital webspace ulceration to the right first and second toes. 3. Stage ____ pressure ulcerations to the heels. 4. Stage III pressure ulcers of the bilateral gluteal region. 5. History of acute kidney injury versus chronic kidney disease. 6. History of hypertension. 7. Peripheral neuropathy. RECOMMENDATIONS: We will recommend Aquacel Ag ____ between the toes. Recommend heel protectors at all times. Betadine and dry gauze to the eschar on the heels bilaterally, which are very small. Barrier cream to the gluteal region, ____ pump to the bag, q. 2 hour turning and positioning. I appreciate being asked to see him in consultation. MD NICKI Hull/CECILIA/JAM <ELECTRONICALLY SIGNED> By: Pravin Dawson MD 08/16/20 0900 [id number] Pravin Dawson MD /nt
--- NOTE | 2020-08-16 13:14 | NUR ---
ON-GOING ASSESSMENT: CM REVIEWED CHART AND SPOKE WITH ATTENDING. PT IS PROGRESSING TOWARDS GOALS. GI IS FOLLOWING AND AWAITING POSSIBLE PLANS OF SCOPING PATIENT OR NOT. CM MET WITH PATIENT TO DISCUSS POST ACUTE CARE. PT REPORTS HE HAS BEEN TO [facility] IN THE PAST AND WANTS TO GO BACK THERE. [facility] CONSULT WAS PLACED AND LIASON NOTIFIED. CM SPOKE WITH [facility] WHO REPORTS THEY CAN ACCEPT PATIENT ONCE MEDICALLY STABLE. CM NOTIFIED ATTENDING.
[2020-08-16 15:15] VITALS: BP 130/74
--- NOTE | 2020-08-16 15:50 | NUR ---
PT ASSESSED AT START OF SHIFT. PT UP W/ THERAPY W/ MAX ASSIST TO SIT UP FEW HOURS. LARGE INCONTINENT BM IN BED THIS AM. MORE MIRALAX THIS AFTERNOON. PT TAKING PAIN MEDS FOR VARIOUS PAINS. EATING AND DRINKING. AT BEDSIDE THIS AFTERNOON. LASIX 40MG IV GIVEN X ONE DOSE FOR DAMON LE EDEMA. PT TO GO TO [facility] EITHER TODAY OR TOMORROW.
[2020-08-16 19:15] VITALS: BP 133/76
--- NOTE | 2020-08-17 02:20 | NUR ---
ASSESSED AT START OF SHIFT. PT AWAITING D/C TO [facility]. CALLED REHAB TO CONFIRM TIME. WAS NOTIFIED THAT PT WILL BE ADMITTED TOMORROW TO ROOM 504. PT AWARE. EVENING MEDICATION GIVEN. FALL PREC IN PLACE. PT INCONTINENT OF B&B HAD SOFT MULTIPLE STOOLS. PERICARE GIVEN AND ZYGUARD APPLIED TO PT BOTTOM. PAIN MEDICATION GIVEN. CALL LIGHT AT REACH AND WILL CONT TO MONITOR.
[2020-08-17 04:37] VITALS: BP 145/87
[2020-08-17 05:09] LABS: HEMATOCRIT 35.1 % (42.0-52.0); HEMOGLOBIN 11.7 gm/dL (14.0-18.0); MCH 33.9 pg (26.0-34.0); MCHC 33.3 g/dL (28.0-37.0); MCV 101.6 fL (80.0-100.0); RBC 3.46 mil/uL (4.50-6.00); RDW 15.3 % (10.5-14.5); WBC 5.9 thou/uL (4.0-11.0)
[2020-08-17 06:07] LABS: CALCIUM 8.1 mg/dL (8.5-10.1); CREATININE 1.5 mg/dL (0.7-1.3); POTASSIUM 3.2 mmol/L (3.5-5.1)
[2020-08-17 07:05] VITALS: BP 135/90
--- NOTE | 2020-08-17 09:51 | NUR ---
Assumed care of pt at 0700. Pt alert but forgetful at times. Q2h turn. RA. Denies pain. Dressings changed. D/c planned for rehab later today. Pt aware. Call light within reach. Fall precautions in place. Will continue to monitor.
--- NOTE | 2020-08-17 10:53 | NUR ---
on-going assessment: cm reviewed chart. ot saw pt and PER ALIDA pt is able to go to [facility] TODAY. CM NOTIFIED CANDE AT [facility] THAT HE WILL NOW BE GOING TO [facility] AND NOT HOME. PT REPORTS NO FURTHER NEEDS FROM CM.
[2020-08-17] MEDS ORDERED: COLACE 100 MG100 MG PO (11:54)
[2020-08-17] MEDS ORDERED: HYDROCORT-PRAMO30 G1 RECTAL (11:55)
[2020-08-17] MEDS ORDERED: MIRALAX17 GM PO (11:55)
== END 2020-08-17 15:25 | DRG 388 ==
LOC: ER 19:32 → EROBS 22:13 → 4S 22:13
PROVIDERS: Emergency Medicine; Nurse Practitioner Family; ADMIT Hospitalist; ATTEND Hospitalist
DX: K56.41 Fecal impaction (principal); L89.623 Pressure ulcer of left heel, stage 3; L89.323 Pressure ulcer of left buttock, stage 3; L89.313 Pressure ulcer of right buttock, stage 3; L89.613 Pressure ulcer of right heel, stage 3; N17.9 Acute kidney failure, unspecified; E44.0 Moderate protein-calorie malnutrition; E11.621 Type 2 diabetes mellitus with foot ulcer; Z20.822 Contact with and (suspected) exposure to COVID-19; Z96.643 Presence of artificial hip joint, bilateral; L97.519 Non-pressure chronic ulcer of other part of right foot with unspecified severity; S81.802A Unspecified open wound, left lower leg, initial encounter; S81.801A Unspecified open wound, right lower leg, initial encounter; R53.81 Other malaise; I12.9 Hypertensive chronic kidney disease with stage 1 through stage 4 chronic kidney disease, or unspecified chronic kidney disease; N18.30 Chronic kidney disease, stage 3 unspecified; K76.0 Fatty (change of) liver, not elsewhere classified; E11.42 Type 2 diabetes mellitus with diabetic polyneuropathy; E11.51 Type 2 diabetes mellitus with diabetic peripheral angiopathy without gangrene; E11.22 Type 2 diabetes mellitus with diabetic chronic kidney disease; G47.00 Insomnia, unspecified; M19.90 Unspecified osteoarthritis, unspecified site; Z86.16 Personal history of COVID-19; X58.XXXA Exposure to other specified factors, initial encounter; Y93.89 Activity, other specified; Y92.89 Other specified places as the place of occurrence of the external cause; Y99.8 Other external cause status; Z79.82 Long term (current) use of aspirin; Z79.899 Other long term (current) drug therapy; Z68.33 Body mass index [BMI] 33.0-33.9, adult
CPT/HCPCS: 10100; 10102

== ENCOUNTER 2020-08-16 16:12 | Inpatient (IN) | payer OTHER ==
[~2020-08-16] VITALS: Ht 190.5 cm; Wt 120.2 kg
[~2020-08-16 16:12] MED LIST changes: +GENTAMICIN SULF30 GM TOP; +LEVOFLOXACIN500 MG PO; +OMEPRAZOLE20 M1 PO; +SLEEP AID50 MG PO
[2020-08-17] MEDS ORDERED: COLACE 100 MG100 MG PO (11:54)
[2020-08-17] MEDS ORDERED: MIRALAX17 GM PO (11:55)
[2020-08-17] MEDS ORDERED: HYDROCORT-PRAMO30 G1 RECTAL (11:55)
--- NOTE | 2020-08-17 16:23 | NUR ---
Chart review. lucian consulted for dcp. Lucian was able to visit with patient via phone call. Intro to cm and dcp. he stated he has good feeling about rehab. He was on acute rehab in May 2020. He lives with his zaid. House 3 steps to enter home. No stairs inside that he must do. Has DME ( cane, fww, and wheelchair). Reported been using wheelchair more often. assist with medication and finances. Been on service with [facility] in the past. Will cont. following as needed for dc needs.
--- NOTE | 2020-08-17 16:36 | NUR ---
NEW ADMISSION FORM 4 [facility]. CAME IN BY BED WITH SPOUSE. ALERT AND ORIENTATED X 4. PLESANT AND COOPERATIVE. VSS. DENIES ANY PAIN. WAS GIVEN HYDROCODONE AT 1500 WITH GOOD RELIEF. WOUND CARE DONE BY Nhi WATKINS NURSE PRIOR TO DISCHARGE. ASSESSMENT DONE AND DOCUMENTED WITH SPOUSE AT BEDSIDE. IV REMOVED PER PT REQUEST. HAD A SMALL BM TODAY, Z GUARD APPLIED TO BOTTOM. ROOM ORIENTATED TO PT AND SPOUSE, CALL LIGHT WITHIN REACH. BED ALARM ON.
[2020-08-17 20:10] VITALS: BP 145/88
--- NOTE | 2020-08-18 04:11 | NUR ---
ASSUMED CARE AT 08/17. PATIENT IS A&OX4. DENIES SOB OR CHEST PAIN. REPORTED LOWER BACK PAIN, MANAGED WITH PRN HYDROCODONE. PATIENT REQUESTED FOR LORAZEPAM TO MANAGE FEELINGS OF ANXIETY DUE TO HOSPITALIZATION, ON-CALL MECHANIC FOREMAN NOTIFIED AND ONETIME ORDER WAS RECEIVED AND ADMINISTERED AT . PATIENT ALSO EXPRESSED THE NEED TO HAVE A HEPARIN DOSE ADMNISTERED ALTHOUGH IT HAS BEEN DISCONTINUED SINCE ADMISSION ONTO REHAB UNIT. EDUCATION PROVIDED TO PATIENT THAT IS HE IS CURRENTLY ON ASPIRIN AND HAS THE OPTION TO HAVE SCD'S PLACED ON BLE VTE PROPHYLAXIS, IN ADDITION TO BECOMING MORE ACTIVE ON THIS UNIT. PATIENT REFUSED TO HAVE SCD'S PLACED ON. EXPRESSED UNDERSTANDING, BUT SEEMED FRUSTRATED. PATIENT TOLERATED ALL ORAL MEDS WHOLE WITH THIN LIQUIDS. PRAFO BOOTS PLACED ON BLE PRESSURE RELIEF FOR HEELS, ALL DRESSINGS ON LOWER EXTREMITIES ARE CDI. URINAL PLACED AT BEDSIDE. CURRENTLY SLEEPING IN BED, BED ALARM ON AND CALL LIGHT WITHIN REACH. WILL CONTINUE TO MONITOR.
[2020-08-18 04:42] LABS: HEMOGLOBIN 11.2 gm/dL (14.0-18.0); MCH 33.6 pg (26.0-34.0); MCV 101.7 fL (80.0-100.0); RBC 3.35 mil/uL (4.50-6.00); RDW 15.5 % (10.5-14.5); WBC 5.2 thou/uL (4.0-11.0)
[2020-08-18 04:57] LABS: CALCIUM 7.8 mg/dL (8.5-10.1); CREATININE 1.2 mg/dL (0.7-1.3); POTASSIUM 3.3 mmol/L (3.5-5.1)
[2020-08-18 07:15] VITALS: BP 143/77
--- NOTE | 2020-08-18 09:12 | NUR ---
PT LYING IN BED THIS AM. PT HAD INCON. STOOL LAST NIGHT AND URINE. PT ABD IS ROUND WITH BOWEL SOUNDS. PT DENIES ANY ABD DISCOMFORT OR NAUSEA. PT STATED HE IS HERE TO GET STRONGER. PT HAS WALKER AT BEDSIDE. PT STATED HE HAS BACK PAIN OF 7 ON 1-10 SCALE. ADM HYDROCODONE 10MG PO FOR PAIN TO LOWER BACK. PT SITTING ON SIDE OF BED WORKING WITH OT.
--- NOTE | 2020-08-18 14:27 | NUR ---
PT REQUEST PAIN MEDICATION FOR PAIN TO LOWER BACK. ADM HYDROCODONE 10MG PO FOR PAIN, IS AT BEDSIDE AT THIS TIME. PT UP IN W/C.
--- NOTE | 2020-08-18 19:19 | NUR ---
ADM HYDROCODONE 10MG PO FOR PAIN IN GROIN OF 7 ON 1-10 SCALE. PT WANTING TO HAVE ATIVAN. WILL CALL REMELT FURNACE EXPEDITER FOR ORDERS.
--- NOTE | 2020-08-18 19:26 | NUR ---
NOTIFIED ARELIS PARIKH ABOUT ATIVAN CONCERN AND K REPLACEMENT. ORDERS RECIEVED.
[2020-08-18 20:42] VITALS: BP 149/85
[2020-08-19 08:00] VITALS: BP 140/81
--- NOTE | 2020-08-19 10:24 | NUR ---
PT LYING IN BED THIS AM. PT REFUSED LASIX TAB DUE TO LOW K LEVEL. PT STATED HE NEEDED TO SEE WHAT HIS K LEVEL WAS PRIOR TO GETTING LASIX. PT STATED HE DOESN'T TAKE AT HOME AND HE DIDN'T NEED IT. PT STATED HE DIDN'T CARE ABOUT SWELLING TO LEGS. PT WANTING PAIN MEDICATION DUE TO PAIN TO LOWER BACK AND LEGS. PT HAS WRAPS TO FEET BILATERALY. PT WANTING ATIVAN DUE TO ANXIETY OF FEELING STUCK OR TRAPPED. PT DOES HAVE SOME TREMOR TO RT HAND WHEN TALKING ABOUT NEEDING ANXIETY MEDICATION. PT DOES HAVE SWELLING TO LE TO SHINS.
--- NOTE | 2020-08-19 14:52 | NUR ---
ADM ATIVAN 1MG PO FOR ANXIETY. PT HAD A LARGE LOOSE BM INCON. PRIOR TO WORKING WITH THERAPY. PT ALSO HAD KDUR 40MEQ PO X1 PER DR. RAMIREZ. PT STILL REFUSED LASIX.
[2020-08-19 19:15] VITALS: BP 113/61
--- NOTE | 2020-08-20 04:14 | NUR ---
ASSUMED CARE AT 1900 OF 08/19. PATIENT IS A&OX4, W/ INTERMITTENT FORGETFULNESS. REPORTED ANXIOUS FEELING ABOUT HOSPITALIZATION, ATIVAN ADMINISTERED TO MANAGE ANXIETY, AND PATIENT PROVIDED WITH TIME AND SPACE TO VENT. MODERATE ASSIT OF 1 WITH TRANSFERS USING GB AND WALKER, STAND BY ASSIST WITH AMBULATION. PATIENT WAS INCONTINENT OF BOWEL AND BLADDER IN HIS BRIEF. CLEANED UP, SACRAL/GLUTEAL WOUND CLEANSED AND Z-GUARD APPLIED. PATIENT REQUESTED TO HOLD METOPROLOL AT HS DUE TO BP BEING 113/61 AND HR 83. REQUESTED FOR BENADRYL SLEEP-AID. PATIENT IS SLEEPING IN BED, NO BRIEFS, INCONTINENCE PADS IN PLACE. PATIENT REQUESTED NOT TO BE DISRUPTED WHILE SLEEPING THROUGH OUT THE NIGHT, EVEN FOR TURNS. BED ALARM ON AND CALL LIGHT W/IN REACH. WILL CONTINUE TO MONITOR.
[2020-08-20 05:30] LABS: HEMATOCRIT 33.2 % (42.0-52.0); HEMOGLOBIN 11.2 gm/dL (14.0-18.0); MCH 34.2 pg (26.0-34.0); MCHC 33.9 g/dL (28.0-37.0); MCV 101.2 fL (80.0-100.0); RBC 3.28 mil/uL (4.50-6.00); RDW 15.1 % (10.5-14.5); WBC 4.6 thou/uL (4.0-11.0)
[2020-08-20 05:36] LABS: CALCIUM 8.2 mg/dL (8.5-10.1); CREATININE 1.2 mg/dL (0.7-1.3); POTASSIUM 3.7 mmol/L (3.5-5.1)
[2020-08-20 08:00] VITALS: BP 121/53
--- NOTE | 2020-08-20 12:05 | NUR ---
Nutrition: pt admit to rehab unit with general debility. PMH: HTN, peripheral neuropathy, COVID. Pt with ulcers to bilateral toes and stage 3 pressure ulcers to bilateral heels and gluteal areas. Wound care following. Eats well, 100% of meals recorded yesterday. Ensure max ordered daily for wound healing needs. Pt reports he doesn't drink it every day but will following RD encouragement. Aware of protein sources/needs. Stable weights. Prior constipation x 10 days requiring digital disimpaction now resolved. Stool regimen has been decreased. Able to order meals as desired. Consider low nutrition risk with interventions in place.
--- NOTE | 2020-08-20 16:14 | NUR ---
ASSUMED CARE AT 0700. ALERT AND ORIENTATED X 4, SEEMS ANXIOUS AND REQUESTING FOR PAIN MEDS AND ANXIETY MEDS FREQUENTLY WITH THE TIME FRAME. PAIN IS AT 5/10 IN R SHOULDER. HAD COUPLE OF LOOSE STOOL THIS MORNING AND PT REQUESTED HIS STOOL REGIMEN FOR MIRALAX CHANGED TO DAILY. HE ALSO WAS CONCERNED ABOUT TAKING LASIX TODAY AND PREFERS TO SPEAK TO THE DR AND WANTS HIS K TO BE ABOVE 4. WOUND CARE TO BLE. PEDAL PULSES PRESENT, LEGS ELEVATED WITH PITTING EDEMA NOTED. PARTICIPATING WITH THERAPY AND PROGRESSING SLOWLY TOWARDS GOAL.
[2020-08-20 20:02] VITALS: BP 138/79
--- NOTE | 2020-08-21 03:26 | NUR ---
ASSUMED CARE AT 1900 OF 08/20. PATIENT IS A&OX4, W/ NOTED FORGETFULNESS. REPORTED PAIN IF LEFT FOOT, PATIENT REPORTS IS OCCURS SOMETIMES DUE TO LOWER EXTREMITY WOUNDS. DRESSINGS ON BLE ARE CDI. PRN HYDROCODONE ADMINISTERED TO MANAGE PAIN. PATIENT CONTINUES TO BE Q2H TURNS, APPEARS TO BE SLEEPING ON HOURLY ROUNDS. PRAFO BOOTS ON BLE PRESSURE RELEIF. Z-GUARD APPLIED TO SACRAL AREA, PATIENT REQUEST TO KEEP BRIEF ON OVERNIGH, EDUCATION PROVIDED ABOUT PRESSURE ULCERS THAT THE RISK OF KEEPING BRIEF ON DURING EPISODES OF INCONTINENCE. APPEARS TO BE DRY DURING TURNS. CALL LIGHT W/IN REACH, WILL CONTINUE TO MONITOR.
[2020-08-21 08:06] VITALS: BP 146/86
--- NOTE | 2020-08-21 08:07 | NUR ---
ASSUMED CARE AT 0700. PATIENT IS ALERT AND ORIENTED X4. PATIENT LUGO'S, SENIOR NUCLEAR MEDICINE TECHNOLOGIST ARE EQUAL. LUNGS ARE CLEAR. ABD IS SOFT WITH BSX4. VOIDING MARILYN COLORED URINE. PATIENT HAS WOUNDS TO LEFT AND RIGHT TOES. PATIENT CONTINUES ON PO ABT. PATIENT CAN BE INCONTINENT OF B & B. FALL AND SAFETY PROTOCOLS IN PLACE. C/O PAIN IN HIS TOES. MEDICATED WITH PRN PAIN MEDS. WILL CONTINUE TO [facility].
--- NOTE | 2020-08-21 14:20 | NUR ---
Team meeting, recommendation: dc 08/30 with [facility] ( pt, ot, nursing). No dme needs.
[2020-08-21 19:23] VITALS: BP 125/79
--- NOTE | 2020-08-22 01:26 | NUR ---
ASSUMED CARE OF PT AT 1915 ON 08/21/20. PT IS A&OX4. IS ON ROOM AIR. REPORTS PAIN IN BILAT LES THAT ARE BEING MANAGED WITH ORAL PAIN MEDS & OTHER THERAPUETIC TECHNIQUES. DRSGS C/D/I. ELEVATED. PRAFO BOOTS IN PLACE. IS STABLE. PT REFUSED TO BE TURNED Q2H WITH ASSISTANCE. PT STATED, "DON'T WAKE ME UP TO TURN ME OR TO GIVE ME MEDS. I CAN TURN MYSELF". PT ALSO STATED, "I WOULD LIKE TO TALK SPEAK WITH THE DOCTOR ABOUT DISCONTINUING THE RECTAL MEDICATION & THE OINTIMENT. I DON'T NEED THAT STUFF. I ALSO WANT TO SPEAK WITH THE PERSON WHO DETERMINES WHEN I DISCHARGE. I WOULD LIKE TO GO HOME THIS WEEKEND NOT THE ". THIS NURSE PROVIDED THERAPUETIC COMMUNICATION REGARDING PT'S CONCERNS. ALSO INFORMED PT THAT THE DOCTOR WILL BE IN IN THE AM TO BE SURE TO VOICE CONCERNS TO THE DOCTOR. PT IS CURRENTLY ASLEEP CALL LIGHT WITHIN REACH. PT REQUEST FOR ROOM DOOR TO REMAIN CLOSED AT HS. PT IS UP WITH 1 ASSIST, RACHEL JULES TO C. FALL PRECAUTIONS & HOURLY ROUNDING CONTINUED. LABS & VITALS REVIEWED. APPLYING Z-GUARD TO BUTTOCKS. CALL LIGHT WITHIN REACH. WILL CONTINUE TO MONITOR.
[2020-08-22 07:48] VITALS: BP 139/86
--- NOTE | 2020-08-22 08:03 | NUR ---
Visited with patient at bedside yesterday after team meeting, he stated he thought he would get to dc before the and going to talk with dr. Vinson [facility] will cont. Will cont. following as needed for dc needs.
--- NOTE | 2020-08-22 10:18 | NUR ---
ASSUMED CARE AT 0700. PATIENT IS ALERT AND ORIENTED X4. PATIENT LUGO'S, LIFE SKILLS SPECIALIST ARE EQUAL. LUNGS ARE CLEAR AND DEMINISHED. ABD IS SOFT WITH BSX4. CONTINUES TO GET VOLTARIN GEL TO HIS KNEES BILATERALLY. WOUNDS TO HIS TOES ARE OPEN, GENTAMYCIN OINTMENT APPLIED TO TOES ON LEFT AND RIGHT FOOT. DRESSING CHANGED ACCORDING TO PROTOCOLS. PATIENT CONTINUES ON ORAL ABT WITHOUT ADVERSE AFFECTS. FALL AND SAFETY PROTOCOLS IN PLACE. C/O PAIN IN HIS TOES BILATERALLY, MEDICATED WITH PRN PAIN MED. CONTINUES UP IN CHAIR FOR MEALS. CONTINUES TO PROGRESS SLOWLY TOWARDS D/C GOALS. WILL CONTINUE TO MONITER.
--- NOTE | 2020-08-22 15:50 | PLAN ---
[facility] [place] [address] REHAB UNIT PLAN OF CARE Name: SHANIA LEE Room #: 506-1 ADM IN M.R.#: [id number] Admission: 08/17/20 Attend Phys: Narayan Kulkarni MD Discharge: Date of : 38 Report #: [id number] THIS REPORT FOR: cc: Michael Fox Timothy C. DO Smithson, David G. MD ~ DOC #: [id number] Narayan Kulkarni MD DATE OF SERVICE: 08/19/2020 PROGRESS NOTE AND OVERALL PLAN OF CARE HISTORY OF PRESENT ILLNESS: The patient was seen on 08/17/2020 on the inpatient rehabilitation [facility]. He has been readmitted for comprehensive inpatient rehabilitation. He was in good spirits at that time. He has been nonambulatory for approximately 3 weeks and came in with significant obstipation. He also has some wounds over his feet and my nurse practitioner, Karlene Alicia, has been involved with Wound Care and they are allowing weightbearing as tolerated. I discussed with him and he is having his bring in his shoes. The patient has now been involved in the inpatient rehabilitation. He was involved in therapies yesterday with transfers at a mod assist level bed to wheelchair. He did ambulate mod assist 17 feet with a front-wheeled walker. At one point, he went up to 30 feet with a front-wheeled walker. In occupational therapy, upper body dressing is min assist with lower body dressing, max assist. He is not receiving speech therapy as he does have premorbid cognitive deficits, but the focus is on the PT and OT. ASSESSMENT: 1. Medical complexity with generalized debilitation. 2. Severe obstipation with fecal impaction. 3. Diabetic ulcers, bilateral lower extremity toes. 4. Stage 3 pressure ulcer, bilateral heels. 5. Stage 4 pressure ulcer, bilateral gluteal. 6. Peripheral neuropathy. 7. Hypertension. 8. 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 9. Known cognitive and memory deficits. PLAN: The overall plan of care is based on the pre-admission screen and information garnered from therapy assessments. 1. Estimated length of stay is probably 10-12 days, potentially longer if warranted. 2. Medical prognosis is reasonably good. 3. Anticipated interventions includes the interdisciplinary acute inpatient rehabilitation program. 4. Anticipated functional outcomes would be for [place] [address] REHAB UNIT PLAN OF CARE Name: SHANIA LEE Room #: 506-1 ADM IN ..#: [id number] Admission: 08/17/20 Attend Phys: Narayan Kulkarni MD Discharge: Date of : 39 Report #: [id number] independent with transfers, mobility and ADLs to try to hopefully return back to the home setting. 5. Discharge destination would be back home with . 6. Expected therapy by discipline includes PT and OT 1 and 1-1/2 hours per day each five days a week throughout the duration of the acute inpatient rehabilitation stay. ADDENDUM: The patient's prognosis for significant practical improvement within a reasonable period of time appears good. Given the patient's complex medical condition and risk of further medical complication, rehabilitation services could not be safely provided at a lower level of care such as a nursing home facility. The patient will continue to have the multiple interdisciplinary and consulting physician involvement. Wound Care is closely involved as well as Internal Medicine. GI has been following as well. They have been recommending a colonoscopy done as an outpatient. Narayan Kulkarni MD DGS <ELECTRONICALLY SIGNED> By: Narayan Kulkarni MD 08/22/20 1550 [id number] [id number] Narayan Kulkarni MD /nt
[2020-08-22 19:23] VITALS: BP 123/70
--- NOTE | 2020-08-23 04:37 | NUR ---
ASSUMED CARE AT 1900 OF 08/22. PATIENT IS A&OX4, REPORTS BLE PAIN, FOCUSED IN KNEES AND TOES. PAIN IS MANAGED WITH PRN HYDROCODONE.DRESSINGS ON BLE ARE CDI. PATIENT REQUEST TODAY AGAIN TO NO BE WOKEN UP DURING THE NIGHT FOR SCHEDULED MEDICATIONS OR TURNS WHEN HE IS ALSEEP. PATIENT IS EDUCATED ON THE IMPORTANCE OF TURNS DUE TO PRESENCE OF SACRAL WOUNDS. PATIENT EXPRESSES UNDERSTANDING, AND SAYS HE CAN REPOSITION HIMSELF. PRAFO BOOTS ON BILATERALY FOR PRESSURE RELIEF. PATIENT IS SLEEPING DURING HOURLY ROUNDS, CALL LIGHT W/IN REACH, WILL CONTINUE TO MONITOR.
[2020-08-23 09:48] VITALS: BP 105/60
--- NOTE | 2020-08-23 14:06 | NUR ---
ASSUMED CARE AT 0700. ALERT AND ORIENTATED X 3, FORGETFUL AT TIMES. HYDROCODONE GIVEN FOR SACRAL WOUND PAIN WITH GOOD RELIEF. PT EDUCATED ON TAKING PO LASIX FOR EDEMA AND IS NOT WILLING TO TAKE CURRENTLY DUE TO MAKING HIS POTASSIUM. ALSO EDUCATED REGARDING ELEVATING HIS LEGS IN THE RECLINER. WOUND CARE TO BLE DONE. PARTICIPATING WITH THERAPY AND PROGRESSING TOWARDS GOAL.
[2020-08-23 19:09] VITALS: BP 127/74
--- NOTE | 2020-08-24 02:09 | NUR ---
PT ASSESSMENT COMPLETED AND VSS. MEDS GIVEN ORDERED AND WELL TOLERATED. FALL PRECAUTIONS IN PLACE. UP IN CHAIR EARLY DURING SHIFT. PRN PAIN MEDICATION WORKING WELL. DAMON LOWER LEG DRESSINGS DRY AND INTACT. INC OF LARGE AMOUNT OF URINE. AUBREY CARE PROVIDED. ZGUARD APPLIED TO PTS BOTTOM. PT SLEEPING WELL. ASST WITH REPOSITION USING PILLOWS. WILL CONTINUE TO MONITOR FREQUENTLY.
[2020-08-24 07:29] VITALS: BP 126/62
--- NOTE | 2020-08-24 08:48 | NUR ---
Chart review. Cont. with discharge planning as needed. [facility].
--- NOTE | 2020-08-24 18:05 | NUR ---
ASSUMED CARE AT 0700. ALERT AND ORIENTATED X 3, FORGETFUL AT TIMES. PAIN IS STABLE WITH HYDROCODONE FOR GENERALIZED PAIN AND AGGRAVATED WITH MOVEMENT. BLE EDEMA IS DOWN WITH LEGS ELEVATED. PT IS ON MIRALAX BID AND HAD A LARGE BM TODAY AND REFUSED DULCOLAX SUPP ORDERED BY GI. WOUND CARE DONE. Z GUARD APPLIED TO SACRAL WITH IMPROVEMENT OF SKIN INTEGRITY. PARTICIPATING WITH THERAPY AND PROGRESSING TOWARDS GOAL.
[2020-08-24 19:19] VITALS: BP 138/80
--- NOTE | 2020-08-25 02:17 | NUR ---
ASSUMED CARE APPROX 1900 EVENING 08/24. PT SITTING UP IN RECLINER AT CHANGE OF SHIFT. AWAKE AND ALERT HOWEVER FORGETFUL AT TIMES. PT TOOK HS MEDS WITH WATER TOLERATING WELL. PT STATED HE DID NOT WANT TO BE DISTURBED AND/OR WOKEN UP IN THE NIGHT. PT APPEARS TO BE SLEEPING SOUNDLY. BED ALARM ON AND CALL LIGHT IN REACH. WILL CONTINUE TO MONITOR.
[2020-08-25 07:53] VITALS: BP 126/63
--- NOTE | 2020-08-25 09:59 | NUR ---
ASSUMED CARE AT 0700. PATIENT IS ALERT AND ORIENTED X4. PATIENT LUGO'S, TOOTH CUTTER PINION ARE EQUAL. LUNGS ARE CLEAR AND DEMINISHED. ABD IS SOFT WITH BSX4. PATIENT IS INCONTINUENT OF B & B. FALL AND SAFETY PROTOCOLS IN PLACE. C/O PAIN IN HIS FEET BILATERAL. MEDICATED WTIH PRN PAIN MED. UP IN THE W/C FOR MEALS. PATIENT IS UP WITH ASSIST OF 1 STAFF AND GAIT BELT AND WALKER. CONTINUES TO PROGRESS TOWARDS D/C GOALS. WILL CONTINUE TO MONITER.
[2020-08-25 20:15] VITALS: BP 120/64
--- NOTE | 2020-08-26 02:26 | NUR ---
assumed care approx 1900 evening 08/25. pt assisted into gown and into bed at hs. pt took hs meds with water tolerating well. pt appears to be sleeping soundly. bed alarm on and call light in reach. will continue to monitor.
[2020-08-26 07:15] VITALS: BP 139/79
--- NOTE | 2020-08-26 13:00 | NUR ---
ASSUMED CARE AT 0700. ALERT AND ORIENTATED X 4. REPORTED PAIN IN R ARM AND DAMON KNEE AND TREATED WITH HYDROCODONE AND VOLTAREN GEL WITH GOOD RELIEF. WOUND CARE DONE TO BLE. LEGS ELEVATED WITH PITTING EDEMA. APPETITE GOOD, HAD A BM TODAY. DIURESING. PARTICIPATED WITH PHY THERAPY.
[2020-08-26 19:21] VITALS: BP 120/65
--- NOTE | 2020-08-27 03:00 | NUR ---
Z-GUARD TO SACRUM WHICH IS PINK WITH 2 SMALL OPEN AREAS. ENCOURAGED TO TURN, INSISTS ON WEARING BRIEF, LAYING ON BACK, AND NOT BEING DISTURBED ALL NIGHT. WEARING PRAFO BOOTS BY REQUEST. PAIN PILL, ATIVAN, BENADRYL PER REQUEST TO HELP HIM SLEEP.
[2020-08-27 04:14] LABS: ABSOLUTE NEUTROPHILS 4.2 thou/uL (1.4-8.2); EOSINOPHILS 6.5 % (0.0-3.0); HEMATOCRIT 33.6 % (42.0-52.0); HEMOGLOBIN 11.3 gm/dL (14.0-18.0); LYMPHOCYTES 22.5 % (24.0-44.0); MCH 33.6 pg (26.0-34.0); MCHC 33.5 g/dL (28.0-37.0); MCV 100.3 fL (80.0-100.0); MONOCYTES 8.6 % (1.0-8.0); PLATELET COUNT 284 thou/uL (150-400); POLYS 61.4 % (36.0-66.0); RBC 3.35 mil/uL (4.50-6.00); RDW 14.7 % (10.5-14.5); WBC 6.8 thou/uL (4.0-11.0)
[2020-08-27 04:24] LABS: ALBUMIN 2.4 g/dL (3.4-5.0); CALCIUM 8.6 mg/dL (8.5-10.1); CREATININE 1.1 mg/dL (0.7-1.3); MAGNESIUM 1.6 mg/dL (1.8-2.4); PHOSPHORUS 3.6 mg/dL (2.5-4.9); POTASSIUM 3.8 mmol/L (3.5-5.1); TOTAL BILIRUBIN 0.3 mg/dL (0.2-1.0); TOTAL PROTEIN 6.1 g/dL (6.4-8.2)
[2020-08-27 08:51] VITALS: BP 136/80
--- NOTE | 2020-08-27 09:32 | NUR ---
Nutrition follow up: Pt with good intake at meals. Happy to be able to order foods of choice. On a regular diet, Ensure Max daily. Pt reports drinking 100% of supplement. Continues to be followed by wound care for ulcers to toes, heels and gluteal area. Edema noted. BM 08/27. Continues low nutrition risk with interventions in place.
--- NOTE | 2020-08-27 16:44 | NUR ---
ASSUMED CARE AT 0700. ALERT AND ORIENTATED X 4. REPORTED PAIN MAINLY IN KNEES AND TREATED WITH NORCO AND VOLTAREN GEL. DIURESING, HAD A BM THIS MORNING. APPETITE GOOD. WOUND CARE DONE BY WOUND TEAM TO TOES AND HEEL. Z GUARD APPLIED TO BOTTOM. PARTICIPATING WITH THERAPY AND PROGRESSING TOWARDS GOAL. PLAN FOR DC HOME ON THURSDAY.
[2020-08-27 19:34] VITALS: BP 128/74
--- NOTE | 2020-08-28 00:36 | NUR ---
PT ASSESSMENT COMPLETED AND VSS. MEDS GIVEN ORDERED AND WELL TOLERATED. PRN PAIN MEDICATION WORKING WELL. ASST PT FROM CHAIR TO BED THIS EVENING. PT WAS ABLE TO HELP REMOVE HIS CLOTHING AND PUT HIS GOWN ON. BARRIER CREAM APPLIED TO BOTTOM. ASST WITH REPOSITION USING PILLOWS FOR COMFORT. BENADRYL AT BEDTIME GIVEN AND PT SLEEPING WELL. WILL CONTINUE TO MONITOR FREQUENTLY.
[2020-08-28 08:00] VITALS: BP 110/64
--- NOTE | 2020-08-28 08:09 | NUR ---
ASSUMED CARE AT 0700. PATIENT IS ALERT AND ORIENTED X4. PATIENT LUGO'S, RETRIEVAL SPECIALIST ARE EQUAL. PATIENT HAS DRESSINGS ON AND INTACT TO LEFT AND RIGHT FEET AND TOES. LUNGS ARE CLEAR, ABD IS SOFT WITH BSX4. VOIDING MARILYN COLORED URINE PER URINAL. UP IN CHAIR FOR MEALS. FALL AND SAFETY PROTOCOLS IN PLACE. C/O KNEE PAIN, BACK PAIN, AND FEET PAIN BILATERALLY. MEDICATED WITH PRN PAIN MED. CONTINUES TO PROGRESS SLOWLY TOWARDS D/C GOALS. WILL CONTINUE TO MONITER.
--- NOTE | 2020-08-28 12:49 | NUR ---
Team meeting, incontinent bilat bowel and bladder. Staff to encourage he provided self-care with raina care. Heel wound has heel boots and off load heels. Dc on 08/30 with kandy marquez ( pt, ot, nursing). not wanting hh but recommended as Wil is agreeable to hh.
--- NOTE | 2020-08-28 19:03 | HC ---
[facility] [place] [address] CONSULTATION Name: SHANIA LEE Room #: 506-1 ADM IN M.R.#: [id number] Admission: 08/17/20 Attend Phys: Narayan Kulkarni MD Discharge: Date of : 38 Report #: [id number] THIS REPORT FOR: cc: Michael Fox Timothy C. DO Deutch, Neal B. PhD ~ DATE OF SERVICE: 08/26/2020 NEUROBEHAVIORAL STATUS EXAMINATION DATE OF CONSULTATION: 08/26/2020 ATTENDING PHYSICIAN: Narayan Kulkarni M.D. ORTHOTIC/PROSTHETIC PRACTITIONER: Edy Cagle, PhD CLINICAL PRESENTATION: The patient is an 80-year-old male admitted to the rehabilitation unit at [facility] for evaluation and treatment of critical illness myopathy, constipation, elevated lipase and nonhealing surgical wound along with pus. 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 A complete description of his medical condition and history can be found in his medical record. Neuropsychological consultation was requested to provide assistance in the assessment of cognitive and emotional status and to provide recommendations and services. 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 Prior to this most recent hospitalization, he was living at home with his . He had discontinued driving and his was helping with managing medication and bills. He reports not having difficulty with sleep. Decreased insight is suggested with decreased mobility and difficulty in managment of basic activities of daily living including bowel and bladder control. He does not not report difficulty with memory, cognition, appetite, sleep or word finding. He tends to deny all symptoms of depression or anxiety, but does indicate increased irritability and a desire to have increased activity to return home as soon as possible. His performance on the MMSE 2 brief version was 12/16 suggesting impaired cognitive functioning. The patient states that he is reluctant to be assessed for cognitive difficulties as he feels his problems are mainly associated with lack of activity and medical diagnosis. On the MMSE 2 brief version, he was 3/3 for initial registration, 4/5 for orientation to time, 5/[address] and 0/3 for immediate recall of 3 items after a brief time delay and distraction. [facility] [address] [place] [address] CONSULTATION Name: SHANIA LEE Room #: 506-1 [facility] IN ..#: [id number] Admission: 08/17/20 Attend Phys: Narayan Kulkarni MD Discharge: Date of : 38 Report #: [id number] Impairment is suggested with immediate recall along with decreased insight. Mood appears irritable, likely increased anxiety about limited mobility. DIAGNOSTIC IMPRESSION: Mild neurocognitive disorder, unspecified, with decreased insight. Adjustment disorder with anxious mood RECOMMENDATIONS: The patient is not interested in treatment for anxiety or depression. Feelings of anxiety that is associated with limitations in mobility, bowel and bladder control are likely. His is very supportive and has been providing assistance with activities of daily living. Patient will benefit from having options during therapies to allow him a sense of control. Additionally, he will require direct feedback about his behavior to encourage independent activity for meeting self care goals. Thank you very much for allowing me to provide the consultation on this patient. <ELECTRONICALLY SIGNED> By: Edy Cagle, PhD 08/28/20 [id number] Edy Cagle, PhD /nt
[2020-08-28 19:45] VITALS: BP 130/65
--- NOTE | 2020-08-29 02:03 | NUR ---
PT ASSESSMENT COMPLETED AND VSS. MEDS GIVEN ORDERED AND WELL TOLERATED. FALL PRECAUTIONS IN PLACE. INC OF LARGE AMOUNT OF URINE. ASST WITH REPOSITION FOR COMFORT. BARRIER CREAM APPLIED TO BOTTOM. PRN PAIN AND SLEEP MEDICATION WORKING WELL. WILL CONTINUE TO MONITOR FREQUENTLY.
[2020-08-29 07:15] VITALS: BP 120/58
--- NOTE | 2020-08-29 11:39 | NUR ---
ASSUMED CARE AT 0700. PATIENT IS ALERT AND ORIENTEDX4. PATIENT LUGO'S, FINISH CLEANER ARE EQUAL. LUNGS ARE CLEAR . ABD IS SOFT WITH BSX4. UP IN THE W/C FOR MEALS. PATIENT IS INCONTINENT OF URINE. UP TO THE BATHROOM WITH ASSIST OF 1 STAFF AND GAIT BELT TO BATHROOM. FALL AND SAFETY PROTOCOLS IN PLACE. C/O FEET PAIN DAMON. MEDICATED WITH PRN PAIN MED. CONTINUES TO PROGRESS TOWARDS D/C GOALS. WILL CONTINUE TO MONITER.
--- NOTE | 2020-08-29 12:55 | NUR ---
Call back rec'd from [facility] indicating they are in agreement with [facility] at mo. She would prefer to be the point of contact for all visits and notes he has a appt on Thursday. Mt anticipated tomorrow.
[2020-08-29 13:09] VITALS: BP 120/58
[2020-08-29 20:00] VITALS: BP 121/67
--- NOTE | 2020-08-30 03:15 | NUR ---
ASSUMED CARE AT 1900 OF 08/29. PATIENT IS A&OX4, REPORTED BLE PAIN. PAIN MANAGED WITH NORCO. ASSIST OF 1 WITH GB AND WALKER FOR TRANSFERS TO BATHROOM, WITH MINIMAL ASSIST. BILAT. FEET DRESSINGS ARE CDI. Z-GUARD APPLIED TO SACRAL AREA, PRAFO BOOTS ON WHILE IN BED. PATIENT REFUSES TO BE TURNED DURING THE NIGHT AND REQUESTED THAT HE IS NOT WOKEN UP FOR TURNS OR MEDS DUEING THE NIGHT. PATIENT REPORTS LOOKING FORWARD TO DISCHARGING IN THE MORNING. APPEARS TO BE SLEEPING DURING ROUNDS, WILL CONTINUE TO MONITOR.
[2020-08-30 07:33] VITALS: BP 119/72
[2020-08-30] MEDS ORDERED: MIRALAX17 GM PO (08:30)
[2020-08-30] MEDS ORDERED: COLACE 100 MG100 MG PO (08:30)
[2020-08-30] MEDS ORDERED: IBUPROFEN200 MG PO (09:46)
--- NOTE | 2020-08-30 12:55 | NUR ---
MARK informed that pt is medically stable to transition home on this day. MARK faxed to [facility] fax [phone] and called admissions office to confirm. MARK left w/ callback number [phone] w/ [facility] admissions office
--- NOTE | 2020-08-30 16:34 | NUR ---
PT DISCHARED TODAY AROUND 1300 WITH SPOUSE TO HOME WITH HH. PT WOUND DRESSINGS CHANGED PROIR TO DC. FU AND DC INSTRUCTIONS GIVEN AND DISCUSSED WITH PT AND SPOUSE. PT REQUESTED ATIVAN RX FOR DC BUT THEN DECIDED HE DID NOT WANT TO TAKE IT AT HOME. PRESCRIPTION PLACED IN SHREDDER BIN. PT ASSISTED TO CAR VIA WC WITH MANAGER PHILOSOPHY. ALL BELONGINGS SENT WITH PT AT TIME OF DC.
[2020-09-04] MEDS ORDERED: HYDROCODON-ACE1 EAC5 PO (09:18)
== END 2020-08-30 13:00 | disposition home health service (06) | DRG 947 ==
PROVIDERS: Hospitalist; Internal Medicine; Nurse Practitioner Family; ADMIT Physical Medicine & Rehabilitation; ATTEND Physical Medicine & Rehabilitation
DX: R53.81 Other malaise (principal); L89.324 Pressure ulcer of left buttock, stage 4; L89.314 Pressure ulcer of right buttock, stage 4; L89.623 Pressure ulcer of left heel, stage 3; L89.613 Pressure ulcer of right heel, stage 3; E44.0 Moderate protein-calorie malnutrition; G72.81 Critical illness myopathy; N17.9 Acute kidney failure, unspecified; E11.621 Type 2 diabetes mellitus with foot ulcer; L97.519 Non-pressure chronic ulcer of other part of right foot with unspecified severity; L97.529 Non-pressure chronic ulcer of other part of left foot with unspecified severity; I12.9 Hypertensive chronic kidney disease with stage 1 through stage 4 chronic kidney disease, or unspecified chronic kidney disease; K59.09 Other constipation; Z96.643 Presence of artificial hip joint, bilateral; Z96.651 Presence of right artificial knee joint; G31.84 Mild cognitive impairment of uncertain or unknown etiology; F43.22 Adjustment disorder with anxiety; E11.22 Type 2 diabetes mellitus with diabetic chronic kidney disease; E66.9 Obesity, unspecified; N18.30 Chronic kidney disease, stage 3 unspecified; K76.0 Fatty (change of) liver, not elsewhere classified; G62.9 Polyneuropathy, unspecified; E11.65 Type 2 diabetes mellitus with hyperglycemia; D63.8 Anemia in other chronic diseases classified elsewhere; G57.81 Other specified mononeuropathies of right lower limb; Z68.33 Body mass index [BMI] 33.0-33.9, adult; Z86.16 Personal history of COVID-19; Z79.899 Other long term (current) drug therapy
CPT/HCPCS: 10112

== ENCOUNTER → 2020-10-11 | Outpatient (CLI) | payer OTHER ==
[~2020-10-11] VITALS: Ht 188 cm; Wt 108.9 kg
[~2020-10-11] MED LIST changes: +ASA81BEC PO; +COLACE 100 MG100 MG PO; +COLACE100 MG PO; +CYMBALTA30 MG PO; +HYDROCORT-PRAMO30 G1 RECTAL; +IBU800 MG PO; +IBUPROFEN200 MG PO
[2020-10-11 11:05] VITALS: BP 138/81
--- NOTE | 2020-10-11 15:25 | NUR ---
Pain Clinic Assessment: 1. History of Osteoarthritis: SPINE HIPS History of Rheumatoid Arthritis: Not Applicable 2. Height: 6 ft. 2 in. 188.0 cm. Weight: 240.0 lb. oz. 108.864 kg. Patient's BMI: 30.8 3. Vital Signs: BP: 138/81 Pulse: 68 Resp: 16 Temp: 02 Sat: 98 ECG Mon: 4. Pain Intensity: 5 5. Fall Risk: Dizziness: N Needs help standing or walking: Y Fallen in the last 3 months: N Fall risk comments: 6. Patient on Blood Thinner: None 7. History of Hypertension: Y 8. Opioid Therapy greater than 6 weeks: Y Opiate Contract Signed: 05/29/16 9. Risk Assessment Tool Provided: *LOW RISK-3 10. Functional Assessment Tool: 11. Recreational Drug Use: Never Drug Type: Tobacco Use: Never Smoker Tobacco Type: Amount or Packs/day: How Many Years: Alcohol Use: Yes Frequency: Quant:
== END ==
LOC: PAIN 06:55
PROVIDERS: ATTEND Clinical Nurse Specialist Adult Health
DX: G89.4 Chronic pain syndrome (principal); M96.1 Postlaminectomy syndrome, not elsewhere classified; M54.16 Radiculopathy, lumbar region; E11.40 Type 2 diabetes mellitus with diabetic neuropathy, unspecified; E11.622 Type 2 diabetes mellitus with other skin ulcer; L97.929 Non-pressure chronic ulcer of unspecified part of left lower leg with unspecified severity; L97.919 Non-pressure chronic ulcer of unspecified part of right lower leg with unspecified severity; I10 Essential (primary) hypertension; Z72.89 Other problems related to lifestyle; F32.9 Major depressive disorder, single episode, unspecified; Z79.891 Long term (current) use of opiate analgesic; Z79.899 Other long term (current) drug therapy

== ENCOUNTER → 2020-10-30 | Outpatient (CLI) | payer OTHER | LOC: HYPER 08:09 | PROVIDERS: ATTEND Emergency Medicine | DX: L97.522 Non-pressure chronic ulcer of other part of left foot with fat layer exposed (principal); L97.512 Non-pressure chronic ulcer of other part of right foot with fat layer exposed; L97.422 Non-pressure chronic ulcer of left heel and midfoot with fat layer exposed; L89.152 Pressure ulcer of sacral region, stage 2; M48.00 Spinal stenosis, site unspecified; M20.42 Other hammer toe(s) (acquired), left foot; G60.3 Idiopathic progressive neuropathy; M20.41 Other hammer toe(s) (acquired), right foot; M79.674 Pain in right toe(s); G64 Other disorders of peripheral nervous system; B35.1 Tinea unguium; Z79.82 Long term (current) use of aspirin; Z87.891 Personal history of nicotine dependence; Z79.899 Other long term (current) drug therapy ==

== ENCOUNTER → 2020-11-19 | Outpatient (CLI) | payer OTHER | LOC: HYPER 13:05 | PROVIDERS: ATTEND Emergency Medicine | DX: L97.522 Non-pressure chronic ulcer of other part of left foot with fat layer exposed (principal); L97.515 Non-pressure chronic ulcer of other part of right foot with muscle involvement without evidence of necrosis; L97.422 Non-pressure chronic ulcer of left heel and midfoot with fat layer exposed; L89.152 Pressure ulcer of sacral region, stage 2; B35.1 Tinea unguium; M48.00 Spinal stenosis, site unspecified; M20.42 Other hammer toe(s) (acquired), left foot; G60.3 Idiopathic progressive neuropathy; G64 Other disorders of peripheral nervous system; K21.9 Gastro-esophageal reflux disease without esophagitis; M20.41 Other hammer toe(s) (acquired), right foot; M79.674 Pain in right toe(s); Z79.82 Long term (current) use of aspirin; Z87.891 Personal history of nicotine dependence ==

== ENCOUNTER → 2021-02-21 | Outpatient (CLI) | payer OTHER ==
[~2021-02-21] VITALS: Ht 182.9 cm; Wt 108.9 kg
[~2021-02-21] MED LIST changes: +CYMBALTA60 MG PO
[2021-02-21 13:29] VITALS: BP 115/66
--- NOTE | 2021-02-21 13:49 | NUR ---
Pain Clinic Assessment: 1. History of Osteoarthritis: SPINE HIPS History of Rheumatoid Arthritis: Not Applicable 2. Height: 6 ft. 0 in. 182.9 cm. Weight: 240.0 lb. oz. 108.864 kg. Patient's BMI: 32.5 3. Vital Signs: BP: 115/66 Pulse: 72 Resp: 16 Temp: 02 Sat: 97 ECG Mon: 4. Pain Intensity: 5 5. Fall Risk: Dizziness: N Needs help standing or walking: Y Fallen in the last 3 months: Y Fall risk comments: 6. Patient on Blood Thinner: None 7. History of Hypertension: Y 8. Opioid Therapy greater than 6 weeks: Y Opiate Contract Signed: 05/29/16 9. Risk Assessment Tool Provided: *LOW RISK-3 10. Functional Assessment Tool: 11. Recreational Drug Use: Never Drug Type: Tobacco Use: Never Smoker Tobacco Type: Amount or Packs/day: How Many Years: Alcohol Use: Yes Frequency: Weekly Quant: 2
== END ==
LOC: PAIN 10:46
PROVIDERS: ATTEND Anesthesiology Pain Medicine
DX: G89.29 Other chronic pain (principal); M54.50 Low back pain, unspecified; M54.16 Radiculopathy, lumbar region; M96.1 Postlaminectomy syndrome, not elsewhere classified; G62.9 Polyneuropathy, unspecified; Z79.82 Long term (current) use of aspirin; Z79.899 Other long term (current) drug therapy